=== PATIENT | female | born 1960 | race Caucasian/White ===

== ENCOUNTER 2016-06-13 07:05 | Emergency (ER) | payer OTHER ==
[2016-06-13] MEDS ORDERED: ALBUTEROL NEBULIZED 2.5 MG/3 ML INHALATION STA ×2 (07:41→09:26)
[2016-06-13] MEDS ORDERED: IPRATROPIUM-ALBUTEROL 3 ML NEB INHALATION STA (07:41)
[2016-06-13] MEDS ORDERED: predniSONE 20 MG TAB PO STA (07:41)
--- NOTE | 2016-06-13 07:46 | ED ---
SOB HPI - General Chief Complaint: Shortness of Breath Stated Complaint: hard time breathing Time Seen by Provider: 06/13/16 07:26 Source: patient Mode of arrival: ambulatory Limitations: no limitations - History of Present Illness Initial Comments: This patient is a 55-year-old woman who presents with complaint of which she feels a flareup of her COPD. The patient states that she was last her usual state about a month ago, when she had a flareup of COPD. She states she was treated with antibiotic and steroid, was improving. Patient states she was taking care of her grandchild has an upper respiratory infection, and she began to have worsening of her breathing over the past day to 2. She states she has some wheezing and a nonproductive cough. She has tried her home albuterol treatment without much relief. Patient denies fever or chills. She is not having any sputum. There is no chest pain. The patient is not having any leg pain or swelling. She denies prolonged at rest or travel. MD Complaint: shortness of breath, cough -: days(s) Consistency: constant Improves With: nothing Worsens With: nothing Known History Of: COPD Context: recent URI Associated Symptoms: denies other symptoms, cough Treatments Prior to Arrival: none - Related Data Home Medications Medication Instructions Recorded Confirmed ALPRAZolam [Xanax] 0.5 mg PO BID PRN 06/13/16 06/13/16 Atenolol/Chlorthalidone 1 tab PO BID 06/13/16 06/13/16 [Atenolol-Chlorthalidone 50-25] Hydrocodone/Acetaminophen [[place] 1 tab PO BID PRN 06/13/16 06/13/16 10-325] guaiFENesin [Mucinex] 1,200 mg PO BID PRN 06/13/16 06/13/16 Previous Rx's Medication Instructions Recorded Albuterol Inhaler [Ventolin Hfa 1 - 2 puff INHALATION Q6HR PRN #1 06/13/16 Inhaler] inhaler predniSONE 60 mg PO DAILY #30 tab 06/13/16 Allergies Allergy/AdvReac Type Severity Reaction Status Date / Time No Known Allergies Allergy Verified 06/13/16 07:55 Review of Systems ROS Statement: Those systems with pertinent positive or pertinent negative responses have been documented in the HPI. ROS Other: All systems not noted in ROS Statement are negative. Constitutional: Denies: fever, chills Respiratory: Reports: cough, dyspnea, wheezes. Denies: hemoptysis Cardiovascular: Denies: chest pain, palpitations, edema, syncope Gastrointestinal: Denies: abdominal pain, vomiting, diarrhea, melena, hematochezia Genitourinary: Denies: dysuria, hematuria Musculoskeletal: Denies: back pain Skin: Denies: rash Neurological: Denies: headache Past Medical History Additional Past Medical History / Comment(s): pneumonia, anxiety History of Any Multi-Drug Resistant Organisms: None Reported Past Surgical History: Section Past Psychological History: Anxiety Smoking Status: Current some day smoker Past Alcohol Use History: Occasional Past Drug Use History: None Reported General Exam Limitations: no limitations General appearance: alert, in no apparent distress Head exam: Present: atraumatic, normocephalic ENT exam: Present: normal oropharynx Respiratory exam: Present: wheezes. Absent: respiratory distress, rales, rhonchi, stridor, accessory muscle use, decreased breath sounds, prolonged expiratory Cardiovascular Exam: Present: regular rate, normal rhythm, normal heart sounds. Absent: systolic murmur, diastolic murmur, rubs, gallop GI/Abdominal exam: Present: soft. Absent: distended, tenderness, guarding, rebound Extremities exam: Present: normal inspection, normal capillary refill. Absent: pedal edema, calf tenderness Neurological exam: Present: alert Skin exam: Present: warm, dry, intact, normal color. Absent: rash Course Vital Signs 06/13/16 06/13/16 06/13/16 07:08 08:12 08:32 Temperature 97.5 F L Pulse Rate 66 72 78 Respiratory 20 Rate Blood Pressure 130/66 O2 Sat by Pulse 92 L Oximetry Medical Decision Making - Lab Data Result diagrams: 06/13/16 07:58 06/13/16 07:58 Lab Results 06/13/16 06/13/16 06/13/16 Range/Units 07:58 07:58 07:58 WBC 5.6 (3.8-10.6) k/uL RBC 4.24 (3.80-5.40) m/uL Hgb 13.9 (11.4-16.0) gm/dL Hct 40.8 (34.0-46.0) % MCV 96.1 (80.0-100.0) fL MCH 32.9 (25.0-35.0) pg MCHC 34.2 (31.0-37.0) g/dL RDW 13.6 (11.5-15.5) % Plt Count 211 (150-450) k/uL Neutrophils % 64 % Lymphocytes % 25 % Monocytes % 5 % Eosinophils % 3 % Basophils % 1 % Neutrophils # 3.6 (1.3-7.7) k/uL Lymphocytes # 1.4 (1.0-4.8) k/uL Monocytes # 0.3 (0-1.0) k/uL Eosinophils # 0.2 (0-0.7) k/uL Basophils # 0.1 (0-0.2) k/uL D-Dimer 0.37 (<0.60) mg/L FEU Sodium 137 (137-145) mmol/L Potassium 3.5 (3.5-5.1) mmol/L Chloride 98 (98-107) mmol/L Carbon Dioxide 29 (22-30) mmol/L Anion Gap 10 mmol/L BUN 15 (7-17) mg/dL Creatinine 0.57 (0.52-1.04) mg/dL Est GFR (MDRD) Af Amer >60 (>60 ml/min/1.73 sqM) Est GFR (MDRD) Non-Af >60 (>60 ml/min/1.73 sqM) Glucose 89 (74-99) mg/dL Calcium 8.8 (8.4-10.2) mg/dL - EKG Data -: EKG Interpreted by Md EKG shows normal: sinus rhythm, axis (Normal), intervals (Normal), QRS complexes (Normal), ST-T waves (Normal) Rate: bradycardia (Rate 57 bpm) Disposition Clinical Impression: Acute exacerbation of chronic obstructive airways disease Disposition: HOME SELF-CARE Condition: Fair Instructions: COPD (Chronic Obstructive Pulmonary Disease) (ED) Prescriptions: Albuterol Inhaler [Ventolin Hfa Inhaler] 1 - 2 puff INHALATION Q6HR PRN #1 inhaler PRN Reason: Wheezing predniSONE 60 mg PO DAILY #30 tab Referrals: Ursula Corona MD [Primary Care Provider] - 1-2 days
[2016-06-13 08:10] LABS: Basophils # (A) 0.1 k/uL (0-0.2); Basophils % (A) 1 %; CH 33.4; CHCM 34.9; Eosinophils # (A) 0.2 k/uL (0-0.7); Eosinophils % (A) 3 %; HCT 40.8 % (34.0-46.0); HDW 2.47; HGB 13.9 gm/dL (11.4-16.0); Luc # (Auto) 0.11; Luc % (Auto) 2; Lymphocytes # (A) 1.4 k/uL (1.0-4.8); Lymphocytes % (A) 25 %; MCH 32.9 pg (25.0-35.0); MCHC 34.2 g/dL (31.0-37.0); MCV 96.1 fL (80.0-100.0); Mean Platelet Volume 7.7; Monocytes # (A) 0.3 k/uL (0-1.0); Monocytes % (A) 5 %; Neutrophils # (A) 3.6 k/uL (1.3-7.7); Neutrophils % (A) 64 %; RBC 4.24 m/uL (3.80-5.40); RDW 13.6 % (11.5-15.5); WBC 5.6 k/uL (3.8-10.6); WBC (Perox) 5.72
[2016-06-13 08:18] LABS: Anion Gap 10 mmol/L; Blood Urea Nitrogen 15 mg/dL (7-17); Calcium 8.8 mg/dL (8.4-10.2); Carbon Dioxide 29 mmol/L (22-30); Chloride 98 mmol/L (98-107); Glucose 89 mg/dL (74-99); Non-African American GFR(MDRD) >60 (>60 ml/min/1.73 sqM); Potassium 3.5 mmol/L (3.5-5.1); Sodium 137 mmol/L (137-145)
--- NOTE | 2016-06-13 08:42 | XR ---
EXAMINATION TYPE: XR chest 2V DATE OF EXAM: 06/13/2016 8:34 AM COMPARISON: 02/15/2016 HISTORY: Shortness of breath FINDINGS: The lungs are clear and there is no pneumothorax, pleural effusion, or focal pneumonia. Hyperinflati on suggests COPD. IMPRESSION: 1. No acute process. Correlate for COPD.
[2016-06-13 09:47] VITALS: BP 114/55; RESP 18; TEMP 97.4
[2016-06-13 10:04] VITALS: PULSE 76
== END 2016-06-13 10:11 | disposition home or self-care (01) ==
LOC: EC 07:05
DX: J44.1 Chronic obstructive pulmonary disease with (acute) exacerbation (principal); F41.9 Anxiety disorder, unspecified; Z79.899 Other long term (current) drug therapy; F17.200 Nicotine dependence, unspecified, uncomplicated
CPT/HCPCS: 36415; 71020; 80048; 85025; 85379; 93005; 94640; 99285

== ENCOUNTER 2016-08-08 12:33 | Emergency (ER) | payer OTHER ==
--- NOTE | 2016-08-08 13:12 | ED ---
General Adult HPI - General Chief complaint: Extremity Injury, Lower Stated complaint: Left Foot Swelling Time Seen by Provider: 08/08/16 13:01 Source: patient, RN notes reviewed Mode of arrival: wheelchair Limitations: no limitations - History of Present Illness Initial comments: This is a 55-year-old female who presents with left lower extremity discomfort. Patient states she woke up with her left leg feeling uncomfortable. Patient describes it as a tightness to the posterior left calf and patient has also noticed some swelling to the lateral aspect of the left ankle. Patient denies any known injury or fall. Patient states she has been ambulating. Patient denies any numbness/weakness or tingling. Patient denies any history of blood clots. Patient admits to tobacco use but denies any drug or excessive alcohol use. Patient denies any recent fever, chills, shortness breath, chest pain, abdominal pain, nausea/vomiting/diarrhea, back pain, hematuria, headache, or visual changes, or any other complaints. - Related Data Home Medications Medication Instructions Recorded Confirmed ALPRAZolam [Xanax] 0.5 mg PO BID PRN 06/13/16 08/08/16 Atenolol/Chlorthalidone 1 tab PO BID 06/13/16 08/08/16 [Atenolol-Chlorthalidone 50-25] Hydrocodone/Acetaminophen [[place] 1 tab PO BID PRN 06/13/16 08/08/16 10-325] guaiFENesin [Mucinex] 1,200 mg PO BID PRN 06/13/16 08/08/16 Previous Rx's Medication Instructions Recorded Albuterol Inhaler [Ventolin Hfa 1 - 2 puff INHALATION Q6HR PRN #1 06/13/16 Inhaler] inhaler predniSONE 60 mg PO DAILY #30 tab 06/13/16 Allergies Allergy/AdvReac Type Severity Reaction Status Date / Time No Known Allergies Allergy Verified 06/13/16 07:55 Review of Systems ROS Statement: Those systems with pertinent positive or pertinent negative responses have been documented in the HPI. ROS Other: All systems not noted in ROS Statement are negative. Past Medical History Additional Past Medical History / Comment(s): pneumonia, anxiety History of Any Multi-Drug Resistant Organisms: None Reported Past Surgical History: Section Past Psychological History: Anxiety Smoking Status: Current some day smoker Past Alcohol Use History: Occasional Past Drug Use History: None Reported General Exam - General Exam Comments Initial Comments: General: The patient is awake and alert, in no distress, and does not appear acutely ill. Neck: The neck is supple, there is no tenderness or JVD. Cardiovascular: There is a regular rate and rhythm. No murmur, rub or gallop is appreciated. Respiratory: Lungs are clear to auscultation, respirations are non-labored, breath sounds are equal. No wheezes, stridor, rales, or rhonchi. Musculoskeletal: There is tenderness to palpation over the lateral aspect of the left ankle with some mild swelling here as well. No ecchymosis or erythema. There is no tenderness of the left foot. There is some mild discomfort to palpation over the proximal left tib-fib. No unilateral leg swelling or erythema. Patient has full range of motion, strength 5/5 and Sensation intact. Posterior tibial pulses 2+ bilaterally and capillary refill is normal at less than 2 seconds. Neurological: A&O x 3. CN II-XII intact, There are no obvious motor or sensory deficits. Coordination appears grossly intact. Speech is normal. Skin: Skin is warm and dry and no rashes or lesions are noted. Psychiatric: Patient appears slightly anxious. Normal mood and affect. Limitations: no limitations Course Vital Signs 08/08/16 08/08/16 12:43 15:20 Temperature 99.4 F 98.1 F Pulse Rate 79 80 Respiratory 17 18 Rate Blood Pressure 156/82 148/83 O2 Sat by Pulse 96 99 Oximetry Medical Decision Making - Medical Decision Making This is a 55-year-old female presents with left leg discomfort that she woke up with this morning. On physical exam there is tenderness to palpation over the lateral aspect of the left ankle with some mild swelling here as well. No ecchymosis or erythema. There is no tenderness of the left foot. There is some mild discomfort to palpation over the proximal calf. No unilateral leg swelling or erythema. Patient has full range of motion, strength 5/5 and Sensation intact. Posterior tibial pulses 2+ bilaterally and capillary refill is normal at less than 2 seconds. An x-ray of the left tib-fib and an x-ray of the left ankle were done and reviewed showing: There is no acute fracture or dislocation seen in the left ankle or leg. Nonspecific cortical thickening favors benign endosteal sclerosis or bone island variant. Advised radiographic follow-up in 3-6 months time to confirm nonaggressive ideology. If pain is localized to this level and further investigation with nonemergent contrast enhanced MRI may be warranted. Report read by Dr. Bonner. I discussed the results with patient. Patient has no unilateral leg swelling or erythema, patient has no pitting edema. Patient has 2+ dorsalis pedis and posterior tibial pulses with capillary refill less than 2 seconds. Patient's point of maximal tenderness correlates with the cortical thickening found on x-ray. Patient is able to ambulate in the EC but this is painful. Patient has no history of blood clots. I discussed return parameters. I discussed use of crutches if ambulation is too painful. I discussed the importance of following up with orthopedics for repeat imaging. Discussed that patient should follow up with PCP in one to 2 days or return to the EC for any worsening symptoms or for any further concerns. Patient was receptive to this plan and patient will be discharged home. I discussed this case with attending physician Dr. Akhtar who agrees with plan as stated above. Disposition Clinical Impression: Bone thickening Disposition: HOME SELF-CARE Condition: Good Instructions: Leg Pain (ED) Additional Instructions: Please rest, ice, elevate and use Tylenol or Motrin in her normal at home pain medications for pain. Please use ice packs and heating pads to the area. Please be sure to follow up with orthopedics in the next 1-2 days for further evaluation and for repeat imaging. Please follow-up with family doctor in the next 2 days of symptoms have not improved. Please return to emergency room if the symptoms increase or worsen or for any other concerns. Referrals: Ursula Corona MD [Primary Care Provider] - 1-2 days Martha Gonzalez DO [Doctor of Osteopathic Medicine] - 1-2 days Time of Disposition: 15:12
--- NOTE | 2016-08-08 14:40 | XR ---
EXAMINATION TYPE: XR tibia fibula LT, XR ankle complete LT DATE OF EXAM: 08/08/2016 1:40 PM CLINICAL HISTORY: Left ankle and lower leg pain. Inability to bear weight. TECHNIQUE: Two views of the left leg are obtained. 3 views of left ankle are acquired. COMPARISON: None. FINDINGS: There is no acute fracture or dislocation seen in the left tibia or fibula. A fabella is n oted. Visualized left knee joint is felt within normal limits. There is nonspecific cortical thickeni ng involving the posterior proximal tibial diaphysis. The overlying soft tissue appears unremarkable. Images of the ankle show no acute fracture or dislocation. Ankle mortise symmetry is preserved. Some ossification posterior to talus could reflect unfused apophysis. Tiny fragment posterior to the media l malleolus is noted. IMPRESSION: There is no acute fracture or dislocation seen in the left ankle or leg. Nonspecific cor tical thickening favors benign endosteal sclerosis or bone island variant. Advise radiographic follow -up in 3-6 months time to confirm nonaggressive etiology. If pain is localized to this level and furt her investigation with nonemergent contrast-enhanced MRI may be warranted.
[2016-08-08 15:20] VITALS: BP 148/83; PULSE 80; RESP 18; TEMP 98.1
== END 2016-08-08 15:20 | disposition home or self-care (01) ==
LOC: EC 12:33
DX: M89.362 Hypertrophy of bone, left tibia (principal); F17.200 Nicotine dependence, unspecified, uncomplicated; Z79.899 Other long term (current) drug therapy
CPT/HCPCS: 99283

== ENCOUNTER → 2016-08-15 | Outpatient (CLI) | payer OTHER ==
--- NOTE | 2016-08-17 12:23 | MR ---
EXAMINATION TYPE: MR tib fib LT wo/w con DATE OF EXAM: 08/15/2016 7:07 PM COMPARISON: X-ray 08/08/2016 HISTORY: Patient has tibial bone lesion/disorder CONTRAST: Standard multiplanar, multisequence MRI departmental protocol utilizing 15 mL intravenous MultiHance gadolinium contrast. FINDINGS: There is marked cortical thickening involving the posterior proximal diaphysis of the tibia . Differential diagnosis would include healed fibroxanthoma, osteoid osteoma, stress fracture, intraoss eous fibrous dysplasia. However, There is no central nidus. There is no periosteal reaction. There is no soft tissue component. There is a narrow zone of transition. There is no adjacent marrow edema. There is no adjacent soft tissue e norma. No enhancement. Visualized intramuscular and tendinous structures demonstrate normal signal pattern. There is no abno rmal soft tissue mass signal or fluid collection. IMPRESSION: Posterior cortical thickening proximal diaphysis tibia. Constellation of findings are most typical of a healed fibrous cortical defect or fibroxanthoma. If the patient is point tender that a nuclear med icine bone scan could be obtained to determine activity, however, no surrounding edema within the mar row or soft tissues is noted.
== END | disposition home or self-care (01) ==
LOC: RADMRIMAIN 18:03
PROVIDERS: ATTEND Internal Medicine
DX: M89.8X6 Other specified disorders of bone, lower leg (principal)
CPT/HCPCS: 73720; A9577

== ENCOUNTER 2016-10-15 08:43 | Inpatient (IN) | payer OTHER ==
[2016-10-15] MEDS ORDERED: IBUPROFEN 600 MG TAB PO STA (09:02)
[2016-10-15] MEDS ORDERED: SODIUM CHLORIDE 0.9% 1,000 ML IV STA (09:02)
[2016-10-15] MEDS ORDERED: ONDANSETRON 4 MG/2 ML VIAL IVP STA (09:16)
[2016-10-15] MEDS ORDERED: IPRATROPIUM-ALBUTEROL 3 ML NEB INHALATION STA (09:17)
--- NOTE | 2016-10-15 09:19 | ED ---
Fever HPI <Adonis Kat - Last Filed: 10/15/16 11:53> - General Source: patient, RN notes reviewed Mode of arrival: ambulatory Limitations: no limitations <Miley Chong - Last Filed: 10/15/16 12:18> - General Chief Complaint: Fever Stated Complaint: vomiting, sob Time Seen by Provider: 10/15/16 09:02 - History of Present Illness Initial Comments: Patient is a 55-year-old female presents emergency room for evaluation of fever. Patient states fever began on Thursday. Patient states when taking Tylenol and ibuprofen with little relief of symptoms. Patient states that she has a dry cough. Patient states her chest feels tight. Patient states that she feels short of breath. Patient does admit that she smokes about a pack per day. Patient denies any cardiac history. Patient does states she has history of pneumonia. Patient also states that she's been nauseous with vomiting and slight diarrhea. Patient denies recent travel outside the country. Patient denies taking recent antibiotics. Patient denies sick contacts or any new foods. Patient denies pain or burning during urination, trouble urinating or blood in urine. Patient denies headache. Patient denies throat pain. Patient denies ear pain. Patient states she took a [place] around 6 AM this morning. ( Miley Chong) - Related Data Home Medications Medication Instructions Recorded Confirmed ALPRAZolam [Xanax] 0.5 mg PO BID PRN 06/13/16 10/15/16 Atenolol/Chlorthalidone 1 tab PO BID 06/13/16 10/15/16 [Atenolol-Chlorthalidone 50-25] Hydrocodone/Acetaminophen [[place] 1 tab PO BID PRN 06/13/16 10/15/16 10-325] Albuterol Inhaler [Ventolin Hfa 1 - 2 puff INHALATION RT-Q6H PRN 10/15/16 Inhaler] Allergies Allergy/AdvReac Type Severity Reaction Status Date / Time No Known Allergies Allergy Verified 10/15/16 09:07 Review of Systems ROS Other: All systems not noted in ROS Statement are negative. <Adonis Kat - Last Filed: 10/15/16 11:53> ROS Other: All systems not noted in ROS Statement are negative. <Miley Chong - Last Filed: 10/15/16 12:18> ROS Statement: Those systems with pertinent positive or pertinent negative responses have been documented in the HPI. Past Medical History Additional Past Medical History / Comment(s): pneumonia, anxiety History of Any Multi-Drug Resistant Organisms: None Reported Past Surgical History: Section Past Psychological History: Anxiety Smoking Status: Current every day smoker Past Alcohol Use History: Occasional Past Drug Use History: None Reported <Miley Chong - Last Filed: 10/15/16 12:18> General Exam <Adonis Kat - Last Filed: 10/15/16 11:53> Limitations: no limitations General appearance: alert, in no apparent distress Head exam: Present: atraumatic, normocephalic, normal inspection Eye exam: Present: normal appearance, PERRL, EOMI Pupils: Present: normal accommodation ENT exam: Present: normal exam, normal oropharynx, mucous membranes moist, TM's normal bilaterally, normal external ear exam Neck exam: Present: normal inspection, full ROM. Absent: tenderness, lymphadenopathy Respiratory exam: Present: wheezes. Absent: respiratory distress Cardiovascular Exam: Present: regular rate, normal rhythm, normal heart sounds GI/Abdominal exam: Present: soft, normal bowel sounds. Absent: distended, tenderness, guarding, rebound, rigid Extremities exam: Present: normal inspection Back exam: Present: normal inspection Neurological exam: Present: alert, oriented X3, CN II-XII intact, normal gait Psychiatric exam: Present: normal affect, normal mood Skin exam: Present: warm, dry, intact, normal color. Absent: rash <Miley Chong - Last Filed: 10/15/16 12:18> - General Exam Comments Initial Comments: Laying in exam room, no acute distress. (Miley Chong) Course <Adoins Kat - Last Filed: 10/15/16 11:53> <Miley Chong - Last Filed: 10/15/16 12:18> Vital Signs 10/15/16 10/15/16 10/15/16 08:53 10:05 10:49 Temperature 102.4 F H 103 F H 99.8 F H Pulse Rate 87 81 83 Respiratory 20 18 16 Rate Blood Pressure 144/61 128/77 119/61 O2 Sat by Pulse 90 L 93 L 94 L Oximetry 10/15/16 10/15/16 10/15/16 10:53 11:00 11:31 Temperature 98.7 F Pulse Rate 83 92 86 Respiratory 16 Rate Blood Pressure 114/58 O2 Sat by Pulse 94 L Oximetry - Reevaluation(s) Reevaluation #1: 10/15/16 11:54 I did personally do a [id number] evaluation the patient did discuss findings with her. She does demonstrate right lower lobe pneumonia in addition to infection she has had burning with urination and a followed her. She has generalized body aches. Additionally to the findings she has hypokalemia and hypomagnesemia. Patient will be admitted for IV antibiotics and electrolyte replenishment. Examination of the patient does demonstrate a right lower lobe rhonchi and evaluation at the soft nontender extremities bilaterally present and symmetric. I did discuss case with Dr. Sorto. (Adonis Kat) Medical Decision Making - Lab Data Result diagrams: 10/15/16 09:30 10/15/16 09:30 <Adonis Kat - Last Filed: 10/15/16 11:53> - Lab Data Result diagrams: 10/15/16 09:30 10/15/16 09:30 <Miley Chong - Last Filed: 10/15/16 12:18> - Lab Data Lab Results 10/15/16 10/15/16 10/15/16 Range/Units 09:30 09:30 09:30 WBC 6.7 (3.8-10.6) k/uL RBC 4.34 (3.80-5.40) m/uL Hgb 14.7 (11.4-16.0) gm/dL Hct 43.3 (34.0-46.0) % MCV 99.8 (80.0-100.0) fL MCH 33.8 (25.0-35.0) pg MCHC 33.9 (31.0-37.0) g/dL RDW 14.4 (11.5-15.5) % Plt Count 225 (150-450) k/uL Neutrophils % 83 % Lymphocytes % 12 % Monocytes % 3 % Eosinophils % 1 % Basophils % 0 % Neutrophils # 5.6 (1.3-7.7) k/uL Lymphocytes # 0.8 L (1.0-4.8) k/uL Monocytes # 0.2 (0-1.0) k/uL Eosinophils # 0.1 (0-0.7) k/uL Basophils # 0.0 (0-0.2) k/uL Macrocytosis Slight PT (9.0-12.0) sec INR (<1.1) APTT (22.0-30.0) sec Sodium 134 L (137-145) mmol/L Potassium 2.9 L* (3.5-5.1) mmol/L Chloride 94 L (98-107) mmol/L Carbon Dioxide 32 H (22-30) mmol/L Anion Gap 8 mmol/L BUN 13 (7-17) mg/dL Creatinine 0.62 (0.52-1.04) mg/dL Est GFR (MDRD) Af Amer >60 (>60 ml/min/1.73 sqM) Est GFR (MDRD) Non-Af >60 (>60 ml/min/1.73 sqM) Glucose 107 H (74-99) mg/dL Plasma Lactic Acid [place] 1.0 (0.7-2.0) mmol/L Calcium 8.8 (8.4-10.2) mg/dL Magnesium 1.5 L (1.6-2.3) mg/dL Total Bilirubin 0.5 (0.2-1.3) mg/dL AST 37 H (14-36) U/L ALT 39 (9-52) U/L Alkaline Phosphatase 75 (38-126) U/L Total Creatine Kinase (30-135) U/L CK-MB (CK-2) (0.0-2.4) ng/mL CK-MB (CK-2) Rel Index Troponin I (0.000-0.034) ng/mL Total Protein 7.2 (6.3-8.2) g/dL Albumin 4.2 (3.5-5.0) g/dL Urine Color Urine Appearance (Clear) Urine pH (5.0-8.0) Ur Specific [place] (1.001-1.035) Urine Protein (Negative) Urine Glucose (UA) (Negative) Urine Ketones (Negative) Urine Blood (Negative) Urine Nitrite (Negative) Urine Bilirubin (Negative) Urine Urobilinogen (<2.0) mg/dL Ur Leukocyte Esterase (Negative) Urine RBC (0-5) /hpf Urine WBC (0-5) /hpf Urine WBC Clumps (None) /hpf Urine Mucus (None) /hpf 10/15/16 10/15/16 10/15/16 Range/Units 09:30 09:30 09:30 WBC (3.8-10.6) k/uL RBC (3.80-5.40) m/uL Hgb (11.4-16.0) gm/dL Hct (34.0-46.0) % MCV (80.0-100.0) fL MCH (25.0-35.0) pg MCHC (31.0-37.0) g/dL RDW (11.5-15.5) % Plt Count (150-450) k/uL Neutrophils % % Lymphocytes % % Monocytes % % Eosinophils % % Basophils % % Neutrophils # (1.3-7.7) k/uL Lymphocytes # (1.0-4.8) k/uL Monocytes # (0-1.0) k/uL Eosinophils # (0-0.7) k/uL Basophils # (0-0.2) k/uL Macrocytosis PT 10.4 (9.0-12.0) sec INR 1.0 (<1.1) APTT 27.6 (22.0-30.0) sec Sodium (137-145) mmol/L Potassium (3.5-5.1) mmol/L Chloride (98-107) mmol/L Carbon Dioxide (22-30) mmol/L Anion Gap mmol/L BUN (7-17) mg/dL Creatinine (0.52-1.04) mg/dL Est GFR (MDRD) Af Amer (>60 ml/min/1.73 sqM) Est GFR (MDRD) Non-Af (>60 ml/min/1.73 sqM) Glucose (74-99) mg/dL Plasma Lactic Acid [place] (0.7-2.0) mmol/L Calcium (8.4-10.2) mg/dL Magnesium (1.6-2.3) mg/dL Total Bilirubin (0.2-1.3) mg/dL AST (14-36) U/L ALT (9-52) U/L Alkaline Phosphatase (38-126) U/L Total Creatine Kinase 120 (30-135) U/L CK-MB (CK-2) 0.6 (0.0-2.4) ng/mL CK-MB (CK-2) Rel Index 0.5 Troponin I <0.012 (0.000-0.034) ng/mL Total Protein (6.3-8.2) g/dL Albumin (3.5-5.0) g/dL Urine Color Yellow Urine Appearance Cloudy H (Clear) Urine pH 5.5 (5.0-8.0) Ur Specific [place] 1.012 (1.001-1.035) Urine Protein 2+ H (Negative) Urine Glucose (UA) Negative (Negative) Urine Ketones Negative (Negative) Urine Blood Moderate H (Negative) Urine Nitrite Negative (Negative) Urine Bilirubin Negative (Negative) Urine Urobilinogen <2.0 (<2.0) mg/dL Ur Leukocyte Esterase Large H (Negative) Urine RBC 25 H (0-5) /hpf Urine WBC >182 H (0-5) /hpf Urine WBC Clumps Occasional H (None) /hpf Urine Mucus Rare H (None) /hpf 10/15/16 12:18 Normal sinus rhythm, ventricular rate 85 bpm, MA interval 124 ms, QRS duration 86 ms, QT/QTC 364/433 ms (Miley Chong) Disposition <Adonis Kat - Last Filed: 10/15/16 11:53> Decision Date: 10/15/16 <Miley Chong - Last Filed: 10/15/16 12:18> Clinical Impression: Urinary tract infection, Pneumonia, Hypokalemia, Hypomagnesemia Disposition: ADMITTED IP TO THIS [facility] Condition: Stable
[2016-10-15 09:48] LABS: Basophils % (A) 0 %; CH 34.8; Eosinophils # (A) 0.1 k/uL (0-0.7); Eosinophils % (A) 1 %; HCT 43.3 % (34.0-46.0); HDW 2.45; HGB 14.7 gm/dL (11.4-16.0); Luc # (Auto) 0.07; Luc % (Auto) 1; Lymphocytes # (A) 0.8 k/uL (1.0-4.8); Lymphocytes % (A) 12 %; MCH 33.8 pg (25.0-35.0); MCHC 33.9 g/dL (31.0-37.0); MCV 99.8 fL (80.0-100.0); Macrocytosis Slight; Mean Platelet Volume 7.7; Monocytes # (A) 0.2 k/uL (0-1.0); Monocytes % (A) 3 %; Neutrophils # (A) 5.6 k/uL (1.3-7.7); Neutrophils % (A) 83 %; RBC 4.34 m/uL (3.80-5.40); RDW 14.4 % (11.5-15.5); WBC 6.7 k/uL (3.8-10.6); WBC (Perox) 6.45
[2016-10-15 10:03] LABS: ALT 39 U/L (9-52); AST 37 U/L (14-36); Alkaline Phosphatase 75 U/L (38-126); Anion Gap 8 mmol/L; Blood Urea Nitrogen 13 mg/dL (7-17); Calcium 8.8 mg/dL (8.4-10.2); Carbon Dioxide 32 mmol/L (22-30); Chloride 94 mmol/L (98-107); Glucose 107 mg/dL (74-99); Magnesium 1.5 mg/dL (1.6-2.3); Non-African American GFR(MDRD) >60 (>60 ml/min/1.73 sqM); Sodium 134 mmol/L (137-145); Total Bilirubin 0.5 mg/dL (0.2-1.3); Total Protein 7.2 g/dL (6.3-8.2)
[2016-10-15 10:04] LABS: Partial Thromboplastin Time 27.6 sec (22.0-30.0); Prothrombin Time 10.4 sec (9.0-12.0)
[2016-10-15 10:05] LABS: Appearance,Urine Cloudy (Clear); Bilirubin,Urine Negative (Negative); Glucose,Urine (UA) Negative (Negative); Ketones,Urine Negative (Negative); Leukocyte Esterase,Urine Large (Negative); Mucus,Urine Rare /hpf; Nitrite,Urine Negative (Negative); PH, Urine 5.5 (5.0-8.0); Particle Count 9450; Protein,Urine 2+ (Negative); RBC,Urine 25 /hpf (0-5); Specific Gravity,Urine 1.012 (1.001-1.035); UA Billing (MACRO vs. MICRO) MICRO; Urobilinogen,Urine <2.0 mg/dL (<2.0); WBC,Urine >182 /hpf (0-5)
[2016-10-15 10:07] LABS: Potassium 2.9 mmol/L (3.5-5.1)
[2016-10-15 10:17] LABS: Creatine Kinase 120 U/L (30-135)
[2016-10-15 10:29] LABS: Creatine Kinase MB 0.6 ng/mL (0.0-2.4); Troponin I <0.012 ng/mL (0.000-0.034)
--- NOTE | 2016-10-15 10:30 | XR ---
EXAMINATION TYPE: XR chest 2V DATE OF EXAM: 10/15/2016 COMPARISON: 06/13/2016 INDICATION: Cough tightness TECHNIQUE: Frontal and lateral views of the chest are obtained. FINDINGS: The heart size is normal. The pulmonary vasculature is normal. There is a right lower lobe infiltrate. Correlate for pneumonia. Atelectasis could be considered.. IMPRESSION: 1. Right lower lobe pneumonia. Correlate clinically
[2016-10-15] MEDS ORDERED: POTASSIUM CHLORIDE ER 20 MEQ TAB.ER PO STA ×2 (10:32→13:20)
[2016-10-15] MEDS ORDERED: MAGNESIUM SULFATE-D5W PMX 1 GM in DEXTROSE/WATER 1 100ML.BAG IVPB ONE (11:05)
[2016-10-15] MEDS ORDERED: LEVOFLOXACIN 750MG-D5W PMX 750 MG in DEXTROSE/WATER 1 150ML.BAG IVPB STA (11:17)
[2016-10-15] MEDS ORDERED: NALOXONE 0.4 MG/ML 1 ML VIAL IV PRN (12:01)
[2016-10-15] MEDS ORDERED: IBUPROFEN 400 MG TAB PO PRN (12:01)
[2016-10-15] MEDS ORDERED: ACETAMINOPHEN TAB 325 MG TAB PO PRN (12:01)
[2016-10-15] MEDS ORDERED: ONDANSETRON 4 MG/2 ML VIAL IVP PRN ×2 (12:01→14:38)
[2016-10-15] MEDS: SODIUM CHLORIDE 0.9% 1,000 ML IV SCH (14:01)
[2016-10-15 14:11] VITALS: BMI 25.8
[2016-10-15] MEDS: MORPHINE SULFATE 4 MG/ML SYRINGE IV PRN (14:45)
[2016-10-15] MEDS: predniSONE 20 MG TAB PO SCH (14:46)
[2016-10-15] MEDS: IPRATROPIUM-ALBUTEROL 3 ML NEB INHALATION SCH ×2 (15:00→19:41)
[2016-10-15] MEDS: AZITHROMYCIN 500 MG TAB PO SCH (17:14)
[2016-10-15] MEDS: PANTOPRAZOLE 40 MG TABLET PO SCH (17:14)
--- NOTE | 2016-10-15 18:03 | HP ---
DATE OF ADMISSION: The patient is a 55-year-old who came in with complaints of fever, 3 days in duration, cough, unable to bring up anything. Patient was also short of breath. Patient does smoke 1 pack of cigarettes per day. Denied any alcohol abuse or any drug abuse. Patient denied any dysuria or urinary frequency. Patient was also complaining of nausea, vomiting. Denied any abdominal pain. Denied any diarrhea. Patient was found to have right middle lobe pneumonia on the chest x-ray. Patient is admitted ( ) I am changing it to ceftriaxone and azithromycin. REVIEW OF SYSTEMS: GENERAL: As described in HPI. CONSTITUTIONAL: No fever, no malaise, no fatigue. HEENT: No recent visual problems or hearing problems. Denied any sore throat. CARDIOVASCULAR: No chest pain, orthopnea, PND, no palpitations, no syncope. PULMONARY: As described in HPI. GASTROINTESTINAL: No diarrhea, no nausea, no vomiting, no abdominal pain. Normoactive bowel sounds. NEUROLOGICAL: No headaches, no weakness, no numbness. HEMATOLOGICAL: Denies any bleeding or petechiae. GENITOURINARY: Denies any burning micturition, frequency, or urgency. MUSCULOSKELETAL/RHEUMATOLOGICAL: Denies any joint pain, swelling, or any muscle pain. ENDOCRINE: Denies any polyuria or polydipsia. The rest of the 14 point review of systems is negative. Home medications include: 1. Atenolol. 2. Chlorthalidone. Chlorthalidone will be held because of hyponatremia and hypokalemia. 3. Xanax. 4. Acetaminophen/hydrocodone. 5. Albuterol. ALLERGIES: NO KNOWN DRUG ALLERGIES. PAST MEDICAL HISTORY: 1. Pneumonia in the past. 2. Hypertension. 3. Anxiety disorder. SOCIAL HISTORY: Smoking as mentioned above. Denied any alcohol abuse or any drug abuse. FAMILY HISTORY: Significant for mesothelioma in father, who at age 73. PHYSICAL EXAMINATION: VITAL SIGNS: Temperature 99.3, pulse of 86, respiratory rate of 20, blood pressure 114/58. Saturating at 94% on 2 L of oxygen by nasal cannula. GENERAL: The patient is alert and oriented x3, not in any acute distress. Well developed, well nourished. HEENT: Pupils are round and equally reacting to light. EOMI. No scleral icterus. No conjunctival pallor. Normocephalic, atraumatic. No pharyngeal erythema. No thyromegaly. CARDIOVASCULAR: S1 and S2 present. No murmurs, rubs, or gallops. PULMONARY: Decreased air entry into bilateral lung joe. Minimal expiratory wheezing was appreciated. I did not hear any clear-cut bronchophony or egophony on exam. ABDOMEN: Soft, nontender, nondistended, normoactive bowel sounds. No palpable organomegaly. MUSCULOSKELETAL: No joint swelling or deformity. EXTREMITIES: No cyanosis, clubbing, or pedal edema. NEUROLOGICAL: Gross neurological examination did not reveal any focal deficits. SKIN: No rashes. LABORATORY DATA: CBC, CMP abnormal for low sodium of 134, potassium of 3.9, magnesium of 1.5. Urine is cloudy; large leukocyte esterase, WBC greater than 182, RBCs 25, occasional WBC clumps. Chest x-ray as mentioned above. ASSESSMENT AND PLAN: 1. Sepsis secondary to most probably pneumonia, right middle lobe. Patient will be started on Rocephin and azithromycin. Will continue to monitor. Blood cultures and sputum cultures were obtained. 2. Acute hypercapnic and hypoxic respiratory failure secondary to chronic obstructive pulmonary disease exacerbation and pneumonia, respectively. Patient will started on systemic steroids, inhalational treatments. Nicotine cessation counseling was provided. 3. Hypertension. Atenolol can be continued but chlorthalidone needs to be held. 4. Hyponatremia, probably hypovolemic as well as from chlorthalidone. Chlorthalidone will be discontinued. 5. Hypomagnesemia. Potassium will be supplemented. 6. Asymptomatic bacteriuria, for which patient will not need any antibiotics. Patient is on Rocephin, which should be good even if she has UTI. 7. Nicotine cessation counseling was provided.
[2016-10-15] MEDS ORDERED: Potassium Replacement Protocol 1 EACH MISC MISCELLANE PRN (20:02)
[2016-10-15] MEDS: HYDROcodone/APAP 10-325MG 1 EACH TAB PO PRN (20:42)
[2016-10-15] MEDS: POTASSIUM CHLORIDE ER 20 MEQ TAB.ER PO SCH (22:11)
[2016-10-15] MEDS: POTASSIUM CHLORIDE 10 MEQ, LIDOCAINE 2% INJ 10 MG in SODIUM CHLORIDE 0.9% 100 ML IV SCH (22:11)
[2016-10-16] MEDS: POTASSIUM CHLORIDE 10 MEQ, LIDOCAINE 2% INJ 10 MG in SODIUM CHLORIDE 0.9% 100 ML IV SCH (00:56)
[2016-10-16] MEDS: POTASSIUM CHLORIDE ER 20 MEQ TAB.ER PO SCH (00:56)
[2016-10-16] MEDS: SODIUM CHLORIDE 0.9% 1,000 ML IV SCH ×3 (01:00→18:21)
[2016-10-16] MEDS: BENZOCAINE/MENTHOL LOZENG 1 EACH LOZENGE MUCOUS MEM PRN (05:24)
[2016-10-16] MEDS: predniSONE 20 MG TAB PO SCH (08:33)
[2016-10-16] MEDS: HYDROcodone/APAP 10-325MG 1 EACH TAB PO PRN ×2 (08:33→18:20)
[2016-10-16] MEDS: AZITHROMYCIN 500 MG TAB PO SCH (08:34)
[2016-10-16] MEDS: PANTOPRAZOLE 40 MG TABLET PO SCH (08:34)
[2016-10-16] MEDS: IPRATROPIUM-ALBUTEROL 3 ML NEB INHALATION SCH ×4 (08:55→20:22)
[2016-10-16] MEDS ORDERED: LEVOFLOXACIN 750MG-D5W PMX 750 MG in DEXTROSE/WATER 1 150ML.BAG IVPB SCH (09:00)
--- NOTE | 2016-10-16 09:06 | CDI ---
In responding to this query, please exercise your independent professional judgment. The [facility] Coding Staff and Clinical Documentation Specialists appreciate your assistance in clarifying documentation, maintaining compliance with coding guidelines, accurately documenting patients condition and capturing severity of illness. The fact that a question is asked does not imply that any particular answer is desired or expected. Communication forms are a method of clarifying documentation and are not made part of the Legal Health Record. Thank you in advance for your clarification. Last Revision, August 2016 Cynthia Cohen [address] [facility] [place] [address] Documentation Clarification Form Date: 10/16/2016 8:54:00 AM From: Sachi Marie RN, CDS Admit Date: 10/15/2016 11:59:00 AM Patient Name: Rossy Edge Visit Number: [id number] Dr. Petey Sorto, 55 year old female presented to ED with c/o fever, dry cough chest feeling tight and nausea/vomiting/slight diarrhea. Patient was short of breath, Expiratory wheezes per Resp therapy. In reference to your documentation of Sepsis in the H&P would you please provide the clinical indicators/treatment to support your documentation. History/Risk Factors: 55 year old h/o Anxiety, HTN, smoker, pneumonia in past Clinical Indicators: WBC 6.7, K 2.9, NA 134, MG 1.5 WBC/Left Shift 6.7/no shift Lactic acid: 1.0 Blood cultures: Pending Vitals signs on admission: 102.4 87 20 144/61 9o% Other Clinical Indicators: Treatment: IV Levaquin in ED, IV Zithromax, IV Rocephin, Duoneb, ID Consult: no Antibiotics: yes IV Bolus: yes in ED In your professional opinion, please clarify if these findings signify one of the following conditions, whether the condition is POA, and cause, if known: Sepsis, ruled out SIRS, without underlying infectious process Sepsis Severe Sepsis Septic Shock Unable to determine Other, please specify Present on Admission: Yes No * Identify the (suspected) organism SIRS Criteria: 2 or more of the following may indicate SIRS Temperature < 96.8F(36C) or > 101.0F (38C) Heart Rate > 90 bpm Respiratory Rate > 20 breaths/min or PaCO2 < 32 mmHg White Blood Cell Count > 12,000 or < 4,000 cells/mm3 or > 10% bands Lactate >2.0 mmol/L (>4.0 is equivalent to septic shock) Please document in your progress notes and discharge summary in order to capture severity of illness and risk of mortality. Include clinical findings that support your diagnosis. FYI: Press F11 to launch patient chart. Place X here if this finding has no clinical significance, is not applicable or if you are not able to provide any additional documentation. MTDD
--- NOTE | 2016-10-16 09:21 | CDI ---
In responding to this query, please exercise your independent professional judgment. The [facility] Coding Staff and Clinical Documentation Specialists appreciate your assistance in clarifying documentation, maintaining compliance with coding guidelines, accurately documenting patients condition and capturing severity of illness. The fact that a question is asked does not imply that any particular answer is desired or expected. Communication forms are a method of clarifying documentation and are not made part of the Legal Health Record. Thank you in advance for your clarification. Last Revision, July 2015 Cynthia Cohen [address] [facility] [place] [address] Documentation Clarification Form Date: 10/16/2016 9:07:00 AM From: Sachi Marie RN, CDS Admit Date: 10/15/2016 11:59:00 AM Patient Name: Rossy Edge Visit Number: [id number] Dr. Petey Sorto, 55 year old female presented to ED with c/o fever, dry cough chest feeling tight and nausea/vomiting/slight diarrhea. Patient was short of breath, Expiratory wheezes per Resp therapy. In reference to your documentation of Acute Hypercapnic and Hypoxic Respiratory Failure please provide the clinical indicators/treatment to support your documentation. History/Risk Factors: 55 year old h/o Anxiety, HTN, smoker, pneumonia in past Tobacco use: current smoker 1 pack per day Home oxygen: No Clinical Indicators: Resp: 16-20 patient reports feeling short of breath, I&E wheezes then diminished lung sounds Vital signs/Pulse oximetry: 102.4 87 20 144/61 90ra then 93-2L Lung/Breathing assessment: Expiratory and Inspiratory Wheezes ABG/CBG: pH -- pCO2 -- pHCO3 -- Lactate: 1.0 Treatment: PO Prednisone, O2/2L to maintain Sats >/= 94% Breathing tx: Duoneb Continuous Pulse ox Vent/Bipap: No O2: 2L/NC-room air In your professional opinion, can you please clarify if these findings signify one of the following conditions? Acuity: o Acute o Chronic o Acute on Chronic Respiratory Status: o Respiratory failure o Respiratory failure with hypercapnia o Respiratory failure with hypoxia o Acute Respiratory Distress o Other Diagnosis, please specify o Unable to determine Please document in your progress notes and discharge summary in order to capture severity of illness and risk of mortality. Include clinical findings that support your diagnosis. FYI: Press F11 to launch patient chart. Place X here if this finding has no clinical significance, is not applicable or if you are not able to provide any additional documentation. MTDD
[2016-10-16 09:28] LABS: Basophils % (A) 0 %; CH 34.2; CHCM 35.3; Eosinophils % (A) 0 %; HCT 38.4 % (34.0-46.0); HDW 2.59; HGB 13.2 gm/dL (11.4-16.0); Luc # (Auto) 0.12; Luc % (Auto) 2; Lymphocytes # (A) 1.1 k/uL (1.0-4.8); Lymphocytes % (A) 22 %; MCH 33.5 pg (25.0-35.0); MCHC 34.3 g/dL (31.0-37.0); MCV 97.5 fL (80.0-100.0); Mean Platelet Volume 7.4; Monocytes # (A) 0.2 k/uL (0-1.0); Monocytes % (A) 3 %; Neutrophils # (A) 3.6 k/uL (1.3-7.7); Neutrophils % (A) 72 %; RBC 3.94 m/uL (3.80-5.40); RDW 13.9 % (11.5-15.5); WBC (Perox) 5.51
[2016-10-16 09:33] LABS: ALT 36 U/L (9-52); AST 36 U/L (14-36); Alkaline Phosphatase 62 U/L (38-126); Anion Gap 8 mmol/L; Blood Urea Nitrogen 9 mg/dL (7-17); Calcium 8.2 mg/dL (8.4-10.2); Carbon Dioxide 30 mmol/L (22-30); Chloride 98 mmol/L (98-107); Glucose 89 mg/dL (74-99); Magnesium 1.6 mg/dL (1.6-2.3); Non-African American GFR(MDRD) >60 (>60 ml/min/1.73 sqM); Potassium 3.5 mmol/L (3.5-5.1); Sodium 136 mmol/L (137-145); Total Bilirubin 0.4 mg/dL (0.2-1.3); Total Protein 6.3 g/dL (6.3-8.2)
[2016-10-16] MEDS ORDERED: Magnesium Replacement Protocol 1 EACH MISC MISCELLANE PRN (11:24)
[2016-10-16] MEDS ORDERED: POTASSIUM CHLORIDE 20 MEQ, LIDOCAINE 2% INJ 20 MG in SODIUM CHLORIDE 0.9% 100 ML IVPB ONE (12:00)
[2016-10-16] MEDS: MAGNESIUM SULFATE-D5W PMX 1 GM in DEXTROSE/WATER 1 100ML.BAG IVPB SCH ×2 (13:22→14:46)
[2016-10-16] MEDS: guaiFENesin 600 MG TABLET.ER PO SCH ×2 (13:29→20:07)
[2016-10-17] MEDS: BENZOCAINE/MENTHOL LOZENG 1 EACH LOZENGE MUCOUS MEM PRN (02:46)
[2016-10-17] MEDS: HYDROcodone/APAP 10-325MG 1 EACH TAB PO PRN ×2 (06:18→18:34)
[2016-10-17] MEDS: SODIUM CHLORIDE 0.9% 1,000 ML IV SCH ×3 (06:20→23:27)
[2016-10-17] MEDS ORDERED: IBUPROFEN 600 MG TAB PO PRN (07:05)
[2016-10-17] MEDS: IPRATROPIUM-ALBUTEROL 3 ML NEB INHALATION SCH ×4 (07:54→21:39)
[2016-10-17] MEDS: guaiFENesin 600 MG TABLET.ER PO SCH ×2 (08:44→20:40)
[2016-10-17] MEDS: PANTOPRAZOLE 40 MG TABLET PO SCH (08:44)
[2016-10-17] MEDS: AZITHROMYCIN 500 MG TAB PO SCH (08:44)
[2016-10-17] MEDS: predniSONE 20 MG TAB PO SCH (08:44)
[2016-10-17] MEDS ORDERED: IBUPROFEN 600 MG TAB PO SCH (09:00)
--- NOTE | 2016-10-17 11:15 | XR ---
EXAMINATION TYPE: XR chest 2V DATE OF EXAM: 10/17/2016 COMPARISON: 10/15/2016 HISTORY: Shortness of breath TECHNIQUE: Frontal and lateral views of the chest are obtained. FINDINGS: Scattered senescent parenchymal changes noted. Hyperinflation compatible with COPD. Increased density right lower lobe may reflect underlying infiltrate. Heart size is stable. Mediastinal structures are stable and grossly unremarkable. No evidence for hilar prominence. Degenerative changes dorsal spine. IMPRESSION: 1. Increased density right lower lobe may reflect underlying infiltrate.
[2016-10-17] MEDS ORDERED: guaiFENesin SYRUP 100MG/5ML 200 MG/10 ML CUP PO PRN (12:40)
--- NOTE | 2016-10-17 13:38 | CONS ---
DATE OF CONSULTATION: A 55-year-old female who presented to the emergency department for evaluation of fever. The patient states the fever began on Thursday. She has been taking Tylenol and ibuprofen without much benefit. In addition, she had a bit of a dry cough. Also, short of breath and chest tightness. Her primary doctor is Dr. Corona and she also sees ( ) for chronic pain syndrome. We were asked to see the patient for COPD exacerbation and possible right lower lobe pneumonia. No nausea, vomiting, or diarrhea. No chest pain or chest discomfort. Dry cough as mentioned, fever. Just feeling rotten all over. The patient's home medications include alprazolam or Xanax, atenolol/hydrochlorothiazide, [place], albuterol inhaler and Advair. She does have an updraft machine, but it is broken. Does not have oxygen at home. Allergies are denied. Her medical history is positive for probable COPD and chronic pain syndrome. She also has anxiety. Denies other complaints. Does have a history of hypertension. Surgical history includes a . Social history is positive for at least 28 years of tobacco use at a pack, pack and a half a day. Drinks occasionally. No illicit drug use. Family history is noncontributory. Occupational history is noncontributory. REVIEW OF SYSTEMS: CONSTITUTIONAL: Fever. NEUROLOGICAL: Negative. HEENT: Negative. CARDIOVASCULAR: Negative. PULMONARY: Shortness of breath, dry cough, fever. GI/: Negative. RHEUMATOLOGICAL/IMMUNOLOGIC: Negative. ENDOCRINOLOGIC: Negative. DERMATOLOGIC: Negative. Vital signs include temperature 100.2, heart rate 80, respiratory rate 22, blood pressure, which is 104/64 and a room air saturation 91%, and 2 L saturation 98%. Appears in no acute distress. HEENT examination is grossly unremarkable. Mucous membranes are moist. No oral lesions. NECK: Supple. Full range of motion. No adenopathy or thyromegaly. Cardiovascular examination reveals regular rhythm and rate. Lungs reveal coarse rhonchi. Breath sounds are diminished. There are a few scattered wheezes. Crackles noted at the bases. ABDOMEN: Soft. Bowel sounds are heard. Extremities are intact. No cyanosis, clubbing, or edema. Skin without rash. Neurologic examination is nonfocal. Chest x-ray shows an infiltrate right lower lobe. Labs are reviewed. CBC is completely normal. PT, INR, PTT normal. Sodium 136, potassium 3.5, chloride 98, CO2 of 30, BUN and creatinine were 9 and 0.54. The rest of the labs look okay. Urine looks to be dirty with a bladder infection. It is cloudy, 2+ protein, moderate blood, large leukocyte esterase, 25, RBCs more than 182 WBCs and occasional white blood cell clumps. No bacteria noted. Medications are reviewed. She is on Tylenol, Zithromax, benzocaine ( ), ceftriaxone, Mucinex, hydrocodone, ibuprofen, DuoNeb, magnesium, Narcan, Zofran, Protonix, potassium, prednisone and an IV. I am going to add Symbicort 160/4.5 two puffs twice a day. The rest of the medications look okay. ASSESSMENT: 1. Chronic obstructive pulmonary disease exacerbation complicated by bronchopneumonia, right lower lobe. 2. Ongoing tobacco use. 3. Hypertension. 4. Chronic obstructive pulmonary disease. 5. Chronic pain. 6. Anxiety. PLAN: I will add Symbicort to the regimen. Additional recommendations and suggestions are forthcoming. Hopefully discharge in a day or so. No additional recommendations are made. She should have follow up in pulmonary clinic. She needs PFTs. Additional recommendations and suggestions are forthcoming. Prognosis is guarded.
[2016-10-17] MEDS: guaiFENesin-DM 100-10MG/5ML 10 ML CUP PO PRN (14:13)
[2016-10-17 20:20] LABS: Magnesium 1.6 mg/dL (1.6-2.3); Potassium 3.6 mmol/L (3.5-5.1)
[2016-10-17] MEDS: SYMBICORT 160-4.5 MCG INHALER INHALATION SCH (21:39)
[2016-10-17] MEDS: ALPRAZolam 0.5 MG TAB PO PRN (23:26)
[2016-10-18] MEDS: guaiFENesin-DM 100-10MG/5ML 10 ML CUP PO PRN ×3 (06:08→19:35)
[2016-10-18] MEDS: HYDROcodone/APAP 10-325MG 1 EACH TAB PO PRN ×2 (06:11→19:33)
[2016-10-18] MEDS: AZITHROMYCIN 500 MG TAB PO SCH (08:49)
[2016-10-18] MEDS: PANTOPRAZOLE 40 MG TABLET PO SCH (08:49)
[2016-10-18] MEDS: guaiFENesin 600 MG TABLET.ER PO SCH ×2 (08:49→20:08)
[2016-10-18] MEDS: predniSONE 20 MG TAB PO SCH (08:49)
[2016-10-18] MEDS: SYMBICORT 160-4.5 MCG INHALER INHALATION SCH ×2 (09:08→19:47)
[2016-10-18] MEDS: IPRATROPIUM-ALBUTEROL 3 ML NEB INHALATION SCH ×4 (09:08→19:47)
--- NOTE | 2016-10-18 10:54 | PN ---
A 55-year-old female who has history of COPD, chronic pain syndrome and also has a history of hypertension. She comes into the hospital with complaints of increasing shortness of breath, difficulty breathing, coughing, chest tightness. Her primary physician is Dr. Corona. She also sees a pain doctor. Her chest x-ray revealed what appeared to be a right lower lobe infiltrate. She is feeling a bit better today. Still very congested and wheezy. Still short of breath. Coughing and bringing up some yellow phlegm. No fever, no chills. No nausea, vomiting, or diarrhea. No chest pain. She is about 25% better she says. Currently, vital signs include temperature 98.7, heart rate 100, respiratory rate 22, blood pressure 131/84, mean 99, 2 L saturation 93%. Appears in no acute distress. HEENT examination is grossly unremarkable. Mucous membranes are moist. No oral lesions. Neck is supple. Full range of motion. No adenopathy or thyromegaly. Neck veins are flat. Cardiovascular examination reveals regular rhythm and rate. S1, S2 normal. No S3, S4 or murmur. Lungs reveal diffuse inspiratory and expiratory wheezes and rhonchi. Breath sounds are diminished. There is slight prolongation. The patient coughs and wheezes on forced maneuver. Abdomen is soft. Bowel sounds are heard. No masses or tenderness. Extremities are intact. No cyanosis, clubbing, or edema. Skin is without rash. Neurologic examination is nonfocal. Labs are reviewed. Nothing new to report. No chest x-ray information to report. Last chest x-ray was done yesterday. Medications were adjusted yesterday when she was seen in consultation. She is on good antibiotics, breathing treatments and so forth. ASSESSMENT: 1. Chronic obstructive pulmonary disease exacerbation complicated by bronchopneumonia right lower lobe. 2. Ongoing tobacco use with nicotine addiction. 3. Essential hypertension. 4. Chronic obstructive pulmonary disease. 5. Chronic pain. 6. Anxiety. PLAN: The patient is on appropriate medications. She is showing some improvement. Will continue with those medications including short -acting beta agonist, short-acting muscarinic antagonist, long-acting beta antagonist, inhaled corticosteroid, systemic corticosteroids including antibiotics. Additional recommendations and suggestions are forthcoming. Prognosis is guarded. Will continue to follow. In addition, the patient will see us in the office and have post hospital PFTs when she is feeling up to it. This will better give us an idea of how severe her chronic lung disease is.
[2016-10-18] MEDS: SODIUM CHLORIDE 0.9% 1,000 ML IV SCH ×2 (12:36→20:09)
[2016-10-18] MEDS ORDERED: ZOLPIDEM 10 MG TAB PO PRN (13:03)
[2016-10-18] MEDS ORDERED: MAGNESIUM SULFATE-D5W PMX 1 GM in DEXTROSE/WATER 1 100ML.BAG IVPB ONE (14:20)
--- NOTE | 2016-10-18 17:41 | PN ---
Patient looks much better today, but still appears to be wheezing quite a bit on exam and patient feels like everything is congested and patient is requesting more frequent albuterol ipratropium inhalational. REVIEW OF SYSTEMS: CARDIOVASCULAR: No chest pain, no orthopnea, no PND, no palpitations. GASTROINTESTINAL: No diarrhea, nausea or vomiting. No abdominal pain. Normoactive bowel sounds. NEUROLOGIC: No headaches, no weakness, no numbness. RESPIRATORY: Symptomatically patient does not feel she is doing much better compared to yesterday. Medications are reviewed. PHYSICAL EXAMINATION: Temperature 98.1, pulse of 100, respiratory rate of 22, blood pressure 131/81. Saturating at 91% on 2 L of O2 by nasal cannula. RESPIRATORY EXAMINATION: Significant expiratory wheezing was appreciated. No decreased air entry into bilateral lung joe. GENERAL: The patient is alert and oriented x3, not in any acute distress. Well developed, well nourished. HEENT: Pupils are round and equally reacting to light. EOMI. No scleral icterus. No conjunctival pallor. Normocephalic, atraumatic. No pharyngeal erythema. No thyromegaly. CARDIOVASCULAR: S1 and S2 present. No murmurs, rubs, or gallops. ABDOMEN: Soft, nontender, nondistended, normoactive bowel sounds. No palpable organomegaly. MUSCULOSKELETAL: No joint swelling or deformity. EXTREMITIES: No cyanosis, clubbing, or pedal edema. NEUROLOGICAL: Gross neurological examination did not reveal any focal deficits. SKIN: No rashes. LABORATORY DATA: None available from today. Magnesium is low, which will be supplemented. ASSESSMENT AND PLAN: 1. Sepsis secondary to pneumonia, patient will be continued on Rocephin and azithromycin. 2. Acute hypercapnic and hypoxic respiratory failure secondary to chronic obstructive pulmonary disease as well as pneumonia. Patient will be continued on systemic steroids, inhalational treatments and nicotine cessation counseling was provided. 3. Hypertension. 4. Hyponatremia, which resolved at this point of time, hypovolemic hyponatremia secondary to chlorthalidone. 5. Hypomagnesemia. 6. Asymptomatic bacteria for which patient will not require any antibiotics. 7. Nicotine cessation counseling was provided.
[2016-10-18] MEDS: ALPRAZolam 0.5 MG TAB PO PRN (22:10)
[2016-10-18] MEDS: IPRATROPIUM-ALBUTEROL 3 ML NEB INHALATION PRN (23:42)
[2016-10-19] MEDS: IPRATROPIUM-ALBUTEROL 3 ML NEB INHALATION PRN (03:29)
[2016-10-19] MEDS: SODIUM CHLORIDE 0.9% 1,000 ML IV SCH ×2 (06:29→15:47)
[2016-10-19] MEDS: IPRATROPIUM-ALBUTEROL 3 ML NEB INHALATION SCH ×4 (07:57→20:14)
[2016-10-19] MEDS: SYMBICORT 160-4.5 MCG INHALER INHALATION SCH ×2 (07:58→20:14)
[2016-10-19 08:04] LABS: CH 33.7; CHCM 34.7; HCT 35.5 % (34.0-46.0); HDW 2.77; HGB 12.1 gm/dL (11.4-16.0); MCH 33.2 pg (25.0-35.0); MCHC 34.1 g/dL (31.0-37.0); MCV 97.5 fL (80.0-100.0); Mean Platelet Volume 7.2; RBC 3.64 m/uL (3.80-5.40); RDW 13.8 % (11.5-15.5); WBC 5.7 k/uL (3.8-10.6)
[2016-10-19 08:17] LABS: Anion Gap 6 mmol/L; Blood Urea Nitrogen 2 mg/dL (7-17); Carbon Dioxide 34 mmol/L (22-30); Chloride 98 mmol/L (98-107); Glucose 82 mg/dL (74-99); Non-African American GFR(MDRD) >60 (>60 ml/min/1.73 sqM); Potassium 3.1 mmol/L (3.5-5.1); Sodium 138 mmol/L (137-145)
[2016-10-19] MEDS: AZITHROMYCIN 500 MG TAB PO SCH (08:31)
[2016-10-19] MEDS: HYDROcodone/APAP 10-325MG 1 EACH TAB PO PRN ×2 (08:31→19:57)
[2016-10-19] MEDS: guaiFENesin 600 MG TABLET.ER PO SCH ×2 (08:31→19:58)
[2016-10-19] MEDS: PANTOPRAZOLE 40 MG TABLET PO SCH (08:31)
[2016-10-19] MEDS: predniSONE 20 MG TAB PO SCH (08:31)
--- NOTE | 2016-10-19 21:00 | PN ---
Patient is an elderly a 55-year-old female with a history of underlying COPD, chronic pain syndrome, and hypertension. She was admitted to the hospital with a diagnosis of increasing shortness of breath, difficulty breathing, coughing, chest congestion, and chest tightness. Her primary is Dr. Corona. She has never seen a lung doctor. Her chest x-ray showed evidence of right lower lobe infiltrate. Clinically she is doing better. There was significant bronchospasm. She is improved, but not certainly back to baseline. Probably should stay in the hospital for another day or so. Still has lots of chest tightness, wheezing, cough, lots of chest congestion. Things are improved though. She is able to breathe easier. Temperature 98, heart rate 88, respiratory rate 22, blood pressure 120/72, mean 90, 2 liters saturation 93%. Appears in no acute distress. HEENT examination is grossly unremarkable. Mucous membranes are moist. No oral lesions. Neck is supple. Full range of motion. No adenopathy or thyromegaly. Neck veins are flat. Cardiovascular examination reveals regular rhythm and rate, S1, S2 normal. No S3, S4 or murmur. Lungs reveal wheezes or rhonchi. Breath sounds are improved. She is moving air better. There is prolongation on forced maneuver. She wheezes and coughs on forced maneuver. ABDOMEN: Soft. Bowel sounds are heard. No masses or tenderness. EXTREMITIES: Intact. No cyanosis, clubbing, or edema. Skin is without rash. NEUROLOGICAL: Examination is nonfocal. Labs are reviewed. White count 5.7, hemoglobin and hematocrit, platelet count normal. Sodium 138, potassium, low at 3.1, chloride 98, CO2 of 34, BUN and creatinine were 2 and 0.42. Microbiology is currently all negative. No recent x-ray to report. The last one was done in October 17. That has been reviewed. Medications are reviewed. ASSESSMENT: 1. Chronic obstructive pulmonary disease exacerbation complicated by bronchopneumonia, right lower lobe. 2. Ongoing tobacco use with nicotine addiction. 3. Essential hypertension. 4. Chronic obstructive pulmonary disease. 5. Chronic pain. 6. Anxiety. PLAN: The patient is still quite bronchospastic. We will continue with current medications. She is continued antibiotics steroids, bronchodilators and so forth. We will continue to follow closely. Prognosis is guarded. She should have follow-up with one of us in the office for pulmonary function testing.
--- NOTE | 2016-10-19 23:03 | PN ---
The patient is still having significant expiratory wheezing, but although her overall respiratory status is improved. Patient's potassium is low. She will be supplemented. REVIEW OF SYSTEMS: CARDIOVASCULAR: No chest pain, no orthopnea, no PND, no palpitations. PULMONARY: Denied any shortness of breath. No cough or hemoptysis. GASTROINTESTINAL: No diarrhea, nausea or vomiting. No abdominal pain. Normoactive bowel sounds. NEUROLOGIC: No headaches, no weakness, no numbness. Medications were reviewed. PHYSICAL EXAMINATION: VITAL SIGNS: Temperature 98.0, pulse of 100, respiratory rate of 22, blood pressure is 128/72. Saturating at 95% on 2 L nasal cannula. GENERAL: The patient is alert and oriented x3, not in any acute distress. Well developed, well nourished. HEENT: Pupils are round and equally reacting to light. EOMI. No scleral icterus. No conjunctival pallor. Normocephalic, atraumatic. No pharyngeal erythema. No thyromegaly. CARDIOVASCULAR: S1 and S2 present. No murmurs, rubs, or gallops. PULMONARY: Significant expiratory wheezing with crackles in the right lower lung bases posteriorly, although wheezing may have improved compared to yesterday. Decreased air entry into bilateral lung joe. ABDOMEN: Soft, nontender, nondistended, normoactive bowel sounds. No palpable organomegaly. MUSCULOSKELETAL: No joint swelling or deformity. EXTREMITIES: No cyanosis, clubbing, or pedal edema. NEUROLOGICAL: Gross neurological examination did not reveal any focal deficits. SKIN: No rashes. LABORATORY DATA: CBC and CMP are abnormal for low potassium of 3.1, which will be supplemented. ASSESSMENT AND PLAN: 1. Sepsis secondary to pneumonia. Antibiotics in the form of Rocephin and azithromycin will be continued. 2. Acute hypercapnic and hypoxic respiratory failure secondary to exacerbation of pneumonia. Continue with antibiotics. 3. Hyponatremia; resolved. 4. Hypokalemia, potassium will be supplemented. 5. Hypomagnesemia. 6. Asymptomatic bacteriuria which will not require any antibiotics, although patient is on antibiotics for pneumonia which should help even if she has urinary tract infection.
[2016-10-20] MEDS: SODIUM CHLORIDE 0.9% 1,000 ML IV SCH ×3 (02:12→20:16)
[2016-10-20] MEDS: IPRATROPIUM-ALBUTEROL 3 ML NEB INHALATION SCH ×4 (07:11→20:26)
[2016-10-20] MEDS: SYMBICORT 160-4.5 MCG INHALER INHALATION SCH (07:11)
[2016-10-20] MEDS: guaiFENesin 600 MG TABLET.ER PO SCH ×2 (08:56→20:16)
[2016-10-20] MEDS: PANTOPRAZOLE 40 MG TABLET PO SCH (08:56)
[2016-10-20] MEDS: predniSONE 20 MG TAB PO SCH (08:56)
[2016-10-20] MEDS: AZITHROMYCIN 500 MG TAB PO SCH (08:56)
[2016-10-20] MEDS: HYDROcodone/APAP 10-325MG 1 EACH TAB PO PRN ×2 (09:00→20:16)
[2016-10-20 09:33] LABS: Anion Gap 9 mmol/L; Blood Urea Nitrogen 7 mg/dL (7-17); Calcium 8.4 mg/dL (8.4-10.2); Carbon Dioxide 27 mmol/L (22-30); Chloride 105 mmol/L (98-107); Glucose 75 mg/dL (74-99); Non-African American GFR(MDRD) >60 (>60 ml/min/1.73 sqM); Potassium 3.5 mmol/L (3.5-5.1); Sodium 141 mmol/L (137-145)
--- NOTE | 2016-10-20 12:46 | PN ---
Patient remains bronchospastic but able to cough up phlegm today. Patient has significant improvement compared to a couple days ago. REVIEW OF SYSTEM: RESPIRATORY: As described in HPI. CARDIOVASCULAR: No chest pain, no orthopnea, no PND, no palpitations. GASTROINTESTINAL: No diarrhea, nausea or vomiting. No abdominal pain. Normoactive bowel sounds. NEUROLOGIC: No headaches, no weakness, no numbness. Medications were reviewed. PHYSICAL EXAMINATION: Temperature 96.9, pulse 104, respiratory rate of 16, blood pressure is 124/77, patient is saturating at 94% on 2 L of nasal cannula. RESPIRATORY: Patient still continues to have significant wheezing, but her respiratory distress did improve. GENERAL: The patient is alert and oriented x3, not in any acute distress. Well developed, well nourished. HEENT: Pupils are round and equally reacting to light. EOMI. No scleral icterus. No conjunctival pallor. Normocephalic, atraumatic. No pharyngeal erythema. No thyromegaly. CARDIOVASCULAR: S1 and S2 present. No murmurs, rubs, or gallops. ABDOMEN: Soft, nontender, nondistended, normoactive bowel sounds. No palpable organomegaly. MUSCULOSKELETAL: No joint swelling or deformity. EXTREMITIES: No cyanosis, clubbing, or pedal edema. NEUROLOGICAL: Gross neurological examination did not reveal any focal deficits. SKIN: No rashes. LABORATORY DATA: Basic metabolic profile essentially within normal limits with mildly low potassium of 3.7, which will be supplemented. ASSESSMENT AND PLAN: 1. Sepsis secondary to pneumonia. Antibiotics will be continued in the form of Rocephin and azithromycin. 2. Acute hypercapnic and hypoxic respiratory failure secondary to chronic obstructive pulmonary disease exacerbation as well as pneumonia. Patient, I believe will improve significantly tomorrow and most probably can be discharged tomorrow. 3. Hyponatremia, which resolved hypovolemic hyponatremia. 4. Hypokalemia, potassium will be supplemented. 5. Asymptomatic bacteria. Patient is already on antibiotics for pneumonia. Patient, I believe will have significant improvement since she started coughing today. By tomorrow she will have significant improvement and most probably can be discharged tomorrow.
[2016-10-20] MEDS: IPRATROPIUM-ALBUTEROL 3 ML NEB INHALATION PRN (13:24)
--- NOTE | 2016-10-20 15:17 | XR ---
EXAMINATION TYPE: XR chest 2V DATE OF EXAM: 10/20/2016 COMPARISON: Chest x-ray October 17, 2016. HISTORY: Cough and fever. TECHNIQUE: Frontal and lateral views of the chest are obtained. FINDINGS: Underlying emphysematous change is felt present with flattened hemidiaphragms on lateral v iew. Increased opacity medial right lung base is redemonstrated improved in appearance on lateral vie w. No new focal airspace opacity, pleural effusion, or pneumothorax is seen bilaterally. The cardiac silhouette size is within normal limits with atherosclerotic change in thoracic aorta. The osseous structures are intact. IMPRESSION: Chronic emphysematous change with improving right medial posterior lower lobe infiltrate , no new infiltrate is seen.
[2016-10-20] MEDS: INSULIN LISPRO (humaLOG) 300 UNIT/3 ML VIAL SQ SCH ×2 (17:08→21:38)
[2016-10-20] MEDS: methylPREDNISolone SOD SUCCI 125 MG/2 ML VIAL IV SCH ×2 (17:08→23:27)
[2016-10-20 17:13] LABS: Glucose,Whole Blood 181 mg/dL (75-99)
--- NOTE | 2016-10-20 18:19 | P.PN ---
Subjective This is a 55-year-old female patient with known history of COPD who presented to the hospital because of a right lung pneumonia. The patient also known to have hypertension and chronic pain syndrome. Over the past 2 days the patient was being treated with a combination of bronchodilators, systemic steroids and antibiotics. She is not seeing much of an improvement and she remains short of breath. She feels her lungs are still squeezing and she gets short of breath with limited amount of activity. No fever. No chills. No hemoptysis. No pleurisy. She is a chronic smoker. Objective - Vital Signs Vital signs: Vital Signs Temp 97 F L 10/20/16 15:00 Pulse 100 10/20/16 16:26 Resp 20 10/20/16 15:00 BP 146/76 10/20/16 15:00 Pulse Ox 91 L 10/20/16 15:00 Intake & Output 10/19/16 10/20/16 10/20/16 18:59 06:59 18:59 Intake Total 1170 Balance 1170 Intake: IV 850 Sodium Chloride 0.9% 1, 800 000 ml @ 100 mls/hr IV . Q10H JOSE Rx#:[id number] cefTRIAXone 1,000 mg In 50 Sodium Chloride 0.9% 50 ml @ 100 mls/hr IVPB Q24HR JOSE Rx#:[id number] Oral 320 Other: # Voids 1 3 4 - Exam The patient appeared well nourished and normally developed. Vital signs as documented. Head exam is unremarkable. No scleral icterus or corneal arcus noted. Neck is without jugular venous distension, thyromegaly, or carotid bruits. Carotid upstrokes are brisk bilaterally. Lung sounds are diminished bilaterally and there is prolongation of the expiratory phase of breathing and scattered expiratory wheezes throughout the lung joe.. Cardiac exam reveals the PMI to be normally sized and situated. Rhythm is regular. First and second heart sounds normal. No murmurs, rubs or gallops. Abdominal exam reveals normal bowel sounds, no masses, no organomegaly and no aortic enlargement. Extremities are nonedematous and both femoral and pedal pulses are normal. - Labs CBC & Chem 7: 10/19/16 07:22 10/20/16 07:16 Labs: Abnormal Lab Results - Last 24 Hours (Table) 10/20/16 10/20/16 Range/Units 07:16 16:58 Creatinine 0.47 L (0.52-1.04) mg/dL POC Glucose (mg/dL) 181 H (75-99) mg/dL Microbiology - Last 24 Hours (Table) 10/15/16 09:30 Blood Culture - Preliminary Blood No Growth after 120 hours Assessment and Plan Plan: Assessment 1 Right lung pneumonia 2 acute COPD exacerbation secondary to right lung pneumonia 3 nicotine addiction 4 hypertension 5 chronic pain 6 anxiety Plan Switch this patient to a combination of Perforomist and Pulmicort overestimates twice a day. Keep the patient put the patient IV Solu Medrol 60 every 6 hours. Continue DuoNeb about treatments around the clock. Repeat chest x-ray done today shows improvement of the right lung pneumonia. He is on this, I'm going to Continue Rocephin and Zithromax. Reevaluate her condition in a.m.
[2016-10-20 18:39] LABS: Hemoglobin A1C 6.2 % (4.2-6.1)
[2016-10-20] MEDS: ALPRAZolam 0.5 MG TAB PO PRN (20:16)
[2016-10-20] MEDS: BUDESONIDE 0.5 MG/2 ML NEBU INHALATION SCH (20:26)
[2016-10-20] MEDS: FORMOTEROL FUMARATE 20 MCG/2 ML NEBU INHALATION SCH (20:26)
[2016-10-20 20:55] LABS: Glucose,Whole Blood 200 mg/dL (75-99)
[2016-10-21] MEDS: IPRATROPIUM-ALBUTEROL 3 ML NEB INHALATION PRN (03:18)
[2016-10-21] MEDS: methylPREDNISolone SOD SUCCI 125 MG/2 ML VIAL IV SCH ×3 (05:05→17:45)
[2016-10-21 07:35] LABS: Glucose,Whole Blood 116 mg/dL (75-99)
[2016-10-21] MEDS: IPRATROPIUM-ALBUTEROL 3 ML NEB INHALATION SCH ×4 (07:57→20:17)
[2016-10-21] MEDS: BUDESONIDE 0.5 MG/2 ML NEBU INHALATION SCH ×2 (07:57→20:18)
[2016-10-21] MEDS: FORMOTEROL FUMARATE 20 MCG/2 ML NEBU INHALATION SCH ×2 (07:58→20:18)
[2016-10-21] MEDS: INSULIN LISPRO (humaLOG) 300 UNIT/3 ML VIAL SQ SCH ×4 (08:52→22:10)
[2016-10-21] MEDS: PANTOPRAZOLE 40 MG TABLET PO SCH (09:07)
[2016-10-21] MEDS: AZITHROMYCIN 500 MG TAB PO SCH (09:07)
[2016-10-21] MEDS: guaiFENesin 600 MG TABLET.ER PO SCH ×2 (09:07→22:10)
[2016-10-21] MEDS: HYDROcodone/APAP 10-325MG 1 EACH TAB PO PRN ×2 (09:28→20:18)
[2016-10-21] MEDS: SODIUM CHLORIDE 0.9% 1,000 ML IV SCH ×2 (09:29→19:03)
[2016-10-21 11:37] LABS: Glucose,Whole Blood 146 mg/dL (75-99)
[2016-10-21] MEDS ORDERED: RX INFO: IV CONTRAST WAS GIVEN 1 EACH MISC MISCELLANE PRN (13:42)
--- NOTE | 2016-10-21 14:46 | P.PN ---
Subjective Principal diagnosis: Right lung pneumonia This is a 55-year-old female patient with known history of COPD who presented to the hospital because of a right lung pneumonia. The patient also known to have hypertension and chronic pain syndrome. Over the past 2 days the patient was being treated with a combination of bronchodilators, systemic steroids and antibiotics. She is not seeing much of an improvement and she remains short of breath. She feels her lungs are still squeezing and she gets short of breath with limited amount of activity. No fever. No chills. No hemoptysis. No pleurisy. She is a chronic smoker. The patient is seen again today 10/21/2016 in follow-up on the regular medical floor. She is awake and alert in no acute distress. Unfortunately the patient has been slow to progress. She continues with a loose nonproductive cough. Dyspnea on exertion. Wheezing. She has been maintained on bronchodilators, Perforomist and budesonide inhalations, steroids, Mucinex, Robitussin, ceftriaxone and azithromycin. All without much improvement. Objective - Vital Signs Vital signs: Vital Signs Temp 97.6 F 10/21/16 14:35 Pulse 85 10/21/16 14:35 Resp 18 10/21/16 14:35 BP 136/60 10/21/16 14:35 Pulse Ox 88 L 10/21/16 14:35 Intake & Output 10/20/16 10/21/16 10/21/16 18:59 06:59 18:59 Weight 74.843 kg Other: # Voids 4 2 - Exam GENERAL EXAM: Alert, comfortable in no apparent distress. HEAD: Normocephalic. EYES: Normal reaction of pupils, equal size. NOSE: Clear with pink turbinates. THROAT: No erythema or exudates. NECK: No masses, no JVD. CHEST: No chest wall deformity. LUNGS: Equal air entry with bilateral end expiratory wheeze. Diminished. CVS: S1 and S2 normal with no audible mumurs, regular rhythm. ABDOMEN: No hepatosplenomegaly, normal bowel sounds, no guarding or rigidity. SPINE: No scoliosis or deformity SKIN: No rashes CENTRAL NERVOUS SYSTEM: No focal deficits, tone is normal in all 4 extremities. Extremities: There is no significant peripheral edema. No clubbing, no cyanosis. Peripheral pulses are intact. - Labs CBC & Chem 7: 10/19/16 07:22 10/20/16 07:16 Labs: Abnormal Lab Results - Last 24 Hours (Table) 10/20/16 10/20/16 10/20/16 Range/Units 07:16 16:58 20:54 POC Glucose (mg/dL) 181 H 200 H (75-99) mg/dL Hemoglobin A1c 6.2 H (4.2-6.1) % 10/21/16 10/21/16 Range/Units 07:28 11:29 POC Glucose (mg/dL) 116 H 146 H (75-99) mg/dL Hemoglobin A1c (4.2-6.1) % Microbiology - Last 24 Hours (Table) 10/15/16 09:30 Blood Culture - Final Blood No Growth after 144 hours Assessment and Plan Plan: Assessment 1 Right lung pneumonia 2 acute COPD exacerbation secondary to right lung pneumonia 3 nicotine addiction 4 hypertension 5 chronic pain 6 anxiety Plan: The patient was seen and evaluated by Dr. Hull. She has been quite slow to progress. We'll go ahead and schedule her for bronchoscopy with BAL in the morning. We'll continue with her current medications. The patient is agreeable to the plan. We'll continue to follow.
--- NOTE | 2016-10-21 16:12 | P.PN ---
Subjective Date of service 10/21/2016. Progress note being dictated for Dr. Obie Drake history: This is a 55-year-old female admitted with sepsis, pneumonia, acute hypercapnic and hypoxic respiratory failure secondary to his acute COPD exacerbation, and multiple other medical issues. Maintained on nebulized bronchodilators, Solu-Medrol,,Rocephin, Zithromax. Breathing slowly improved, remains tight, wheezy with nonproductive cough. Anxious and depressed over hospitalization. Bronchoscopy being discussed as per pulmonary. Afebrile. Review of systems: HEENT: Denies headache or focal deficits. Denies any dizziness or lightheadedness. Respiratory: Complains of increased shortness of breath. Cardiac: Denies any chest pain, palpitations. GI: Denies any nausea, vomiting, or diarrhea. Denies any abdominal tenderness. : Denies any dysuria. Psychiatry: States anxiety and feeling down in regards to slow improvement. Active Medications Acetaminophen (Tylenol Tab) 650 mg PO Q6HR PRN PRN Reason: Mild Pain or Fever > 100.5 Last Admin: 10/17/16 02:42 Dose: 650 mg Hydrocodone Bitart/Acetaminophen ([place] 10) 1 each PO BID PRN PRN Reason: Moderate Pain Last Admin: 10/21/16 09:28 Dose: 1 each Albuterol/Ipratropium (Duoneb 0.5 Mg-3 Mg/3 Ml Soln) 3 ml INHALATION RT-QID JOSE Last Admin: 10/21/16 11:43 Dose: 3 ml Albuterol/Ipratropium (Duoneb 0.5 Mg-3 Mg/3 Ml Soln) 3 ml INHALATION RT-Q2H PRN PRN Reason: Shortness Of Breath Or Wheezing Last Admin: 10/21/16 03:18 Dose: 3 ml Alprazolam (Xanax) 0.5 mg PO BID PRN PRN Reason: Anxiety Last Admin: 10/20/16 20:16 Dose: 0.5 mg Azithromycin (Zithromax) 500 mg PO DAILY JOSE Last Admin: 10/21/16 09:07 Dose: 500 mg Benzocaine/Menthol (Cepacol Lozenge) 1 each MUCOUS MEM Q4HR PRN PRN Reason: cough Last Admin: 10/17/16 02:46 Dose: 1 each Budesonide (Pulmicort) 0.5 mg INHALATION RT-BID [facility] Last Admin: 10/21/16 07:57 Dose: 0.5 mg Formoterol Fumarate (Perforomist) 20 mcg INHALATION RT-BID [facility] Last Admin: 10/21/16 07:58 Dose: 20 mcg Guaifenesin (Mucinex) 1,200 mg PO Q12HR [facility] Last Admin: 10/21/16 09:07 Dose: 1,200 mg Guaifenesin/Dextromethorphan (Robitussin Dm) 10 ml PO Q6H PRN PRN Reason: Cough Last Admin: 10/18/16 19:35 Dose: 10 ml Sodium Chloride (Saline 0.9%) 1,000 mls @ 100 mls/hr IV .Q10H [facility] Last Admin: 10/21/16 09:29 Dose: 100 mls/hr Ceftriaxone Sodium 1,000 mg/ (Sodium Chloride) 50 mls @ 100 mls/hr IVPB Q24HR [facility] Last Admin: 10/21/16 09:07 Dose: 100 mls/hr Ibuprofen (Motrin) 600 mg PO QID PRN PRN Reason: Fever and/ or Pain Last Admin: 10/17/16 07:27 Dose: 600 mg Insulin Human Lispro (Humalog) 0 unit SQ ACHS [facility] PRN Reason: Protocol Last Admin: 10/21/16 12:09 Dose: 2 unit Methylprednisolone Sodium Succinate (Solu-Medrol) 60 mg IV Q6HR [facility] Last Admin: 10/21/16 12:08 Dose: 60 mg Miscellaneous Information (Potassium Per Protocol) 1 each MISCELLANE DAILY PRN ; Protocol PRN Reason: Per Protocol Miscellaneous Information (Magnesium Per Protocol) 1 each MISCELLANE DAILY PRN ; Protocol PRN Reason: Per Protocol Miscellaneous Information (Rx Info: Iv Contrast Was Given) 1 each MISCELLANE DAILY PRN PRN Reason: Per Protocol Stop: 10/23/16 13:42 Morphine Sulfate (Morphine Sulfate (Inj)) 4 mg IV Q4HR PRN PRN Reason: Severe Pain Last Admin: 10/15/16 14:45 Dose: 4 mg Naloxone HCl (Narcan) 0.2 mg IV Q2M PRN PRN Reason: Opioid Reversal Ondansetron HCl (Zofran) 4 mg IVP Q6HR PRN PRN Reason: Nausea And Vomiting Pantoprazole Sodium (Protonix) 40 mg PO AC-BRKFST JOSE Last Admin: 10/21/16 09:07 Dose: 40 mg Zolpidem Tartrate (Ambien) 10 mg PO HS PRN PRN Reason: Insomnia Objective - Vital Signs Vital signs: Vital Signs Temp 97.6 F 10/21/16 14:35 Pulse 85 10/21/16 14:35 Resp 18 10/21/16 14:35 BP 136/60 10/21/16 14:35 Pulse Ox 94 L 10/21/16 14:42 Intake & Output 10/20/16 10/21/16 10/21/16 18:59 06:59 18:59 Weight 74.843 kg Other: # Voids 4 2 1 - Exam PHYSICAL EXAM: VITAL SIGNS: [As above] GENERAL: [Sitting up in bed, no acute distress] HEENT: [Pupils equal conjunctiva normal. Facial rosacea] NECK: [Supple, no JVD] RESPIRATORY EFFORT:[ Increased] LUNGS: Tight ,diminished with bilateral expiratory wheeze[] CARDIOVASCULAR[ regular S1 and S2 with no murmurs rubs or gallops, no edema] GI: [Abdomen soft, nontender, positive bowel sounds. PSYCH: [Alert and oriented -3, mood and affect anxious] NEURO: Gross neurological examination did not reveal any focal deficits - Labs CBC & Chem 7: 10/19/16 07:22 10/20/16 07:16 Labs: Abnormal Lab Results - Last 24 Hours (Table) 10/20/16 10/20/16 10/20/16 Range/Units 07:16 16:58 20:54 POC Glucose (mg/dL) 181 H 200 H (75-99) mg/dL Hemoglobin A1c 6.2 H (4.2-6.1) % 10/21/16 10/21/16 Range/Units 07:28 11:29 POC Glucose (mg/dL) 116 H 146 H (75-99) mg/dL Hemoglobin A1c (4.2-6.1) % Microbiology - Last 24 Hours (Table) 10/15/16 09:30 Blood Culture - Final Blood No Growth after 144 hours Assessment and Plan Plan: 1. [ Sepsis secondary to acute right lung pneumonia]. 2. [ Acute COPD exacerbation secondary to the above]. 3. [ Acute hypercapnic and hypoxic respiratory failure secondary to the above]. 4. [ Hypovolemic Hyponatremia, resolved]. 5. [ Hypokalemia]. 6. [ Ongoing nicotine abuse]. 7. [ Anxiety]. 8. Chronic pain 9. Hypertension Plan: Continue on current medication regime, nebulized bronchodilators, steroids , antibiotics, antidepressant, monitoring and symptomatic treatment. Bronchoscopy as mentioned above scheduled for tomorrow. Follow closely with pulmonary. Further recommendations to follow. The impression and plan of care has been dictated as directed. : I performed a H&P examination of this patient and discussed the same with the dictator. I agree with the dictator's note. Any additional findings/opinions/ etc. will be noted.
--- NOTE | 2016-10-21 16:47 | CT ---
EXAMINATION TYPE: CT chest w con DATE OF EXAM: 10/21/2016 COMPARISON: NONE HISTORY: Chronic cough and congestion. CT DLP: 302.1 mGycm Automated exposure control for dose reduction was used. CONTRAST: CT scan of the chest is performed with IV Contrast, patient injected with 100 mL of Omnipaque 300. FINDINGS: There is mild diffuse pulmonary emphysema. There is a reticular nodular and interstitial infiltrate i n the right lower lobe. There is no pleural effusion. I see no pulmonary mass. There is a similar min imal infiltrate in the anterior segment of the left upper lobe. Thoracic aorta is atheromatous. There are no hilar masses. There is no mediastinal adenopathy. There is no evidence of aortic aneurysm or dissection. There is no pericardial effusion. Bony thorax appear s intact. IMPRESSION: Patchy reticular nodular pulmonary infiltrates in the left upper lobe and right lower lo be probably related to inflammatory disease. Mild pulmonary emphysema. Atheromatous aorta.
[2016-10-21 17:00] LABS: Glucose,Whole Blood 127 mg/dL (75-99)
[2016-10-21 21:29] LABS: Glucose,Whole Blood 144 mg/dL (75-99)
[2016-10-22] MEDS: methylPREDNISolone SOD SUCCI 125 MG/2 ML VIAL IV SCH ×5 (00:02→23:17)
[2016-10-22] MEDS: SODIUM CHLORIDE 0.9% 1,000 ML IV SCH ×3 (06:08→23:17)
[2016-10-22] MEDS: MORPHINE SULFATE 4 MG/ML SYRINGE IV PRN (06:18)
[2016-10-22 07:34] LABS: Glucose,Whole Blood 113 mg/dL (75-99)
[2016-10-22 07:58] LABS: Basophils % (A) 0 %; CH 33.8; CHCM 34.4; Eosinophils % (A) 0 %; HCT 36.6 % (34.0-46.0); HDW 2.67; HGB 12.7 gm/dL (11.4-16.0); Luc # (Auto) 0.13; Luc % (Auto) 1; Lymphocytes # (A) 0.9 k/uL (1.0-4.8); Lymphocytes % (A) 10 %; MCH 34.3 pg (25.0-35.0); MCHC 34.8 g/dL (31.0-37.0); MCV 98.6 fL (80.0-100.0); Mean Platelet Volume 6.8; Monocytes # (A) 0.4 k/uL (0-1.0); Monocytes % (A) 4 %; Neutrophils # (A) 7.7 k/uL (1.3-7.7); Neutrophils % (A) 84 %; RBC 3.71 m/uL (3.80-5.40); RDW 13.9 % (11.5-15.5); WBC 9.2 k/uL (3.8-10.6); WBC (Perox) 9.65
[2016-10-22 08:08] LABS: Anion Gap 9 mmol/L; Blood Urea Nitrogen 15 mg/dL (7-17); Calcium 8.1 mg/dL (8.4-10.2); Carbon Dioxide 32 mmol/L (22-30); Chloride 100 mmol/L (98-107); Glucose 117 mg/dL (74-99); Non-African American GFR(MDRD) >60 (>60 ml/min/1.73 sqM); Potassium 3.8 mmol/L (3.5-5.1); Sodium 141 mmol/L (137-145)
[2016-10-22] MEDS: IPRATROPIUM-ALBUTEROL 3 ML NEB INHALATION SCH ×4 (08:19→20:49)
[2016-10-22] MEDS: BUDESONIDE 0.5 MG/2 ML NEBU INHALATION SCH ×2 (08:19→20:49)
[2016-10-22] MEDS: FORMOTEROL FUMARATE 20 MCG/2 ML NEBU INHALATION SCH ×2 (08:19→20:49)
[2016-10-22] MEDS: INSULIN LISPRO (humaLOG) 300 UNIT/3 ML VIAL SQ SCH ×4 (09:16→21:58)
[2016-10-22] MEDS: PANTOPRAZOLE 40 MG TABLET PO SCH (09:16)
[2016-10-22] MEDS: guaiFENesin 600 MG TABLET.ER PO SCH ×2 (09:17→21:58)
--- NOTE | 2016-10-22 09:29 | PN ---
DATE OF SERVICE: 10/21/2016 This 55-year-old woman who was admitted with sepsis secondary to acute right lung pneumonia is being closely monitored. I have seen and evaluated the patient with the nurse practitioner. Please refer to the nurse practitioner notes and impression documented as a scribe for further information. Prognosis is guarded. Continue with antibiotics. Further recommendations to follow.
[2016-10-22 12:02] LABS: Glucose,Whole Blood 128 mg/dL (75-99)
[2016-10-22] MEDS ORDERED: LIDOCAINE 2% (PF) 20 MG/ML 10ML INHALATION ONE (13:53)
[2016-10-22] MEDS ORDERED: PROPOFOL 10 MG/ML 20 ML VIAL IV ONE (14:04)
[2016-10-22] MEDS ORDERED: IV FLUID CONTINUATION 1,000 ML IV ONE (14:06)
--- NOTE | 2016-10-22 14:29 | P.PN ---
Subjective This is a 55-year-old female patient with known history of COPD who presented to the hospital because of a right lung pneumonia. The patient also known to have hypertension and chronic pain syndrome. Over the past 2 days the patient was being treated with a combination of bronchodilators, systemic steroids and antibiotics. She is not seeing much of an improvement and she remains short of breath. She feels her lungs are still squeezing and she gets short of breath with limited amount of activity. No fever. No chills. No hemoptysis. No pleurisy. She is a chronic smoker. The patient is seen again today 10/21/2016 in follow-up on the regular medical floor. She is awake and alert in no acute distress. Unfortunately the patient has been slow to progress. She continues with a loose nonproductive cough. Dyspnea on exertion. Wheezing. She has been maintained on bronchodilators, Perforomist and budesonide inhalations, steroids, Mucinex, Robitussin, ceftriaxone and azithromycin. All without much improvement. On 10/22/2016, the patient is essentially the same. Denies having any lifting improvement with few days of treatment with antibiotics and systemic steroids. The patient on a combination of Rocephin and Zithromax. The patient on IV Solu- Medrol. The patient is on a combination of Perforomist and does not about treatments. The patient is also on DuoNeb about treatments around the clock. Despite that, she is feeling that everything is quite restricted. She is unable to cough up any respiratory secretions. She is short of breath with limited amount of activity. Based on all this, a CAT scan of the chest was done that showed patchy reticulonodular infiltrates in the left upper lobe and in the right lower lobe related to an underlying pneumonia. There is also an underlying mild pulmonary emphysema. The plan is to proceed with a bronchoscopy and therapeutic it was suctioning and bronchioloalveolar lavage today. Objective - Vital Signs Vital signs: Vital Signs Temp 96.4 F L 10/22/16 07:00 Pulse 105 H 10/22/16 13:31 Resp 16 10/22/16 08:00 BP 158/78 10/22/16 07:00 Pulse Ox 92 L 10/22/16 07:00 Intake & Output 10/21/16 10/22/16 10/22/16 18:59 06:59 18:59 Intake Total 100 Balance 100 Weight 74.843 kg Intake: Oral 100 Other: # Voids 1 3 1 - Exam The patient appeared well nourished and normally developed. Vital signs as documented. Head exam is unremarkable. No scleral icterus or corneal arcus noted. Neck is without jugular venous distension, thyromegaly, or carotid bruits. Carotid upstrokes are brisk bilaterally. Lung sounds are diminished bilaterally and there is prolongation of the expiratory phase of breathing and scattered expiratory wheezes throughout the lung joe.. Cardiac exam reveals the PMI to be normally sized and situated. Rhythm is regular. First and second heart sounds normal. No murmurs, rubs or gallops. Abdominal exam reveals normal bowel sounds, no masses, no organomegaly and no aortic enlargement. Extremities are nonedematous and both femoral and pedal pulses are normal. - Labs CBC & Chem 7: 10/22/16 07:03 10/22/16 07:03 Labs: Abnormal Lab Results - Last 24 Hours (Table) 10/21/16 10/21/16 10/22/16 Range/Units 16:57 21:24 07:03 RBC 3.71 L (3.80-5.40) m/uL Lymphocytes # 0.9 L (1.0-4.8) k/uL Carbon Dioxide (22-30) mmol/L Creatinine (0.52-1.04) mg/dL Glucose (74-99) mg/dL POC Glucose (mg/dL) 127 H 144 H (75-99) mg/dL Calcium (8.4-10.2) mg/dL 10/22/16 10/22/16 10/22/16 Range/Units 07:03 07:28 11:53 RBC (3.80-5.40) m/uL Lymphocytes # (1.0-4.8) k/uL Carbon Dioxide 32 H (22-30) mmol/L Creatinine 0.46 L (0.52-1.04) mg/dL Glucose 117 H (74-99) mg/dL POC Glucose (mg/dL) 113 H 128 H (75-99) mg/dL Calcium 8.1 L (8.4-10.2) mg/dL Microbiology - Last 24 Hours (Table) 10/15/16 09:30 Blood Culture - Final Blood No Growth after 144 hours Assessment and Plan Plan: Assessment 1 Right lung pneumonia. The CAT scan of the chest was reviewed. There is a patchy left ago another infiltrate in the left upper lobe and the right lower lobe. The patient has had no significant improvement over the past few days and the patient will be having a bronchoscopy and therapeutic it was suctioning and the bronchioloalveolar lavage today. 2 acute COPD exacerbation secondary to right lung pneumonia 3 nicotine addiction 4 hypertension 5 chronic pain 6 anxiety Plan Continue the combination of Perforomist and Pulmicort overestimates twice a day. Keep the patient put the patient IV Solu Medrol 60 every 6 hours. Continue DuoNeb about treatments around the clock. Keep same antibiotic coverage. Proceed with bronchoscopy and was suctioning and bronchioloalveolar lavage. We'll continue to follow make further recommendations based on her overall progress and findings on the bronchoscopy.
--- NOTE | 2016-10-22 14:35 | P.PCN ---
Date of Procedure: 10/22/16 Preoperative Diagnosis: Bilateral pneumonia, more so affecting the right lower lobe Postoperative Diagnosis: Pneumonia with copious purulent respiratory secretions and mucous plugs scattered throughout the patient's airway addition to findings of diffuse tracheobronchitis. Procedure(s) Performed: Implants: Anesthesia: MAC Surgeon: Lamine Hull Estimated Blood Loss (ml): 0 Pathology: other Condition: stable Disposition: floor Indications for Procedure: dyspnea/ pneumonia Operative Findings: This procedure was done under conscious sedation. Anesthetic ages was administered by SAND MIXER OPERATOR the bedside. The patient was given Diprivan. After achieving adequate sedation flexible bronchoscope was inserted to the right nostril with breast upper airway. Examination of the posterior oropharynx, larynx, epiglottis, vocal cords, arytenoids was done and all of this upper airway structures were within normal limits. A total of 2 mL of 1% lidocaine was applied to the vocal cords and following the bronchoscope was advanced upper trachea. Examination of the tracheal bronchial tree was done. Immediately, copious amount of purulent respiratory secretions at a different end up in the mid trachea. These secretions were very thick and purulent and there were causing significant obstruction of the patient's trachea. Therapy care was suctioning was done. Thesecretions were irrigated with fluid and following that there was suctioned out without any major difficulties. As the bronchoscope was being advanced to the lower trachea, more respiratory secretions were encountered in the bilateral mainstem bronchi into more extent in the right lower lobe. Further irrigation was sitting was done and therapeutic it was suctioning was performed to achieve adequate patency of the airway. Airway inspection was completed. Underlying bronchial mucosa and the tracheal mucosa was quite inflamed and erythematous and friable. Nevertheless, despite all this, there was no foreign bodies or endobronchial tumors identified. The visualized airways into the trachea, bilateral mainstem bronchi , right upper lobe bronchus, bronchus intermedius, right middle lobe bronchus, right lower lobe bronchus, left upper lobe bronchus and left lower lobe bronchus. At the end of the procedure, bronchial lavage (BAL) of the right lower lobe was done. A total of 60 cc of fluid was infused with around 20 cc's was suctioned back. Addendum of the procedure, no significant residual secretions were left and the flexible bronchoscope was removed and the patient was transferred recovery in stable condition. The sample was sent for microbial cultures and analysis. The procedure was done without any complications. The patient will be transferred back to her room. Description of Procedure:
[2016-10-22] MEDS: HYDROcodone/APAP 10-325MG 1 EACH TAB PO PRN ×2 (15:09→23:14)
[2016-10-22] MEDS: AZITHROMYCIN 500 MG TAB PO SCH (15:09)
[2016-10-22] MEDS: CHLORPHEN-HYDROcod 8-10mg/5ml 5 ML ORAL.SYRG PO SCH (15:19)
[2016-10-22] MEDS: ALPRAZolam 0.5 MG TAB PO PRN (15:21)
[2016-10-22 17:17] LABS: Glucose,Whole Blood 134 mg/dL (75-99)
[2016-10-22 17:44] LABS: RBC, Body Fluid 20400 /uL
--- NOTE | 2016-10-22 18:16 | P.PN ---
Subjective Date of service 10/22/2016. Progress note being dictated for Dr. Obie Drake history: This is a 55-year-old female admitted with sepsis, pneumonia, acute hypercapnic and hypoxic respiratory failure secondary to his acute COPD exacerbation, and multiple other medical issues. Continues to slowly improve on nebulized bronchodilators, Solu-Medrol,,Rocephin, Zithromax.Bronchoscopy pending-scheduled for today. Afebrile. Review of systems: HEENT: Denies headache or focal deficits. Denies any dizziness or lightheadedness. Respiratory: Complains of increased shortness of breath with minimal exertion. Cardiac: Denies any chest pain, palpitations. GI: Denies any nausea, vomiting, or diarrhea. Denies any abdominal tenderness. : Denies any dysuria. Denies frequency or urgency Psychiatry: States anxiety and feeling down in regards to slow improvement. Active Medications Generic Name Dose Route Start Last Admin Trade Name Freq PRN Reason Stop Dose Admin Acetaminophen 650 mg 10/15/16 12:01 10/17/16 02:42 Tylenol Tab PO 650 mg Q6HR PRN Administration Mild Pain or Fever > 100.5 Hydrocodone Bitart/Acetaminophen 1 each 10/15/16 12:43 10/22/16 15:09 [place] 10 PO 1 each BID PRN Administration Moderate Pain Albuterol/Ipratropium 3 ml 10/15/16 16:00 10/22/16 14:55 Duoneb 0.5 Mg-3 Mg/3 Ml Soln INHALATION 3 ml RT-QID JOSE Administration Albuterol/Ipratropium 3 ml 10/15/16 14:30 10/21/16 03:18 Duoneb 0.5 Mg-3 Mg/3 Ml Soln INHALATION 3 ml RT-Q2H PRN Administration Shortness Of Breath Or Wheezing Alprazolam 0.5 mg 10/17/16 22:44 10/22/16 15:21 Xanax PO 0.5 mg BID PRN Administration Anxiety Azithromycin 500 mg 10/15/16 15:15 10/22/16 15:09 Zithromax PO 500 mg DAILY JOSE Administration Benzocaine/Menthol 1 each 10/16/16 01:02 10/17/16 02:46 Cepacol Lozenge MUCOUS MEM 1 each Q4HR PRN Administration cough Budesonide 0.5 mg 10/20/16 20:00 10/22/16 08:19 Pulmicort INHALATION 0.5 mg RT-BID JOSE Administration Chlorphenir/Hydrocodone Polistirex 5 ml 10/22/16 16:00 10/22/16 15:19 Tussionex PO 5 ml Q12H JOSE Administration Formoterol Fumarate 20 mcg 10/20/16 20:00 10/22/16 08:19 Perforomist INHALATION 20 mcg RT-BID JOSE Administration Guaifenesin 1,200 mg 10/16/16 13:15 10/22/16 09:17 Mucinex PO Not Given Q12HR JOSE Guaifenesin/Dextromethorphan 10 ml 10/17/16 12:59 10/18/16 19:35 Robitussin Dm PO 10 ml Q6H PRN Administration Cough Sodium Chloride 1,000 mls @ 100 mls/hr 10/15/16 12:15 10/22/16 15:22 Saline 0.9% IV 100 mls/hr .Q10H JOSE Administration Ceftriaxone Sodium 1,000 mg/ 50 mls @ 100 mls/hr 10/15/16 15:15 10/22/16 09: 14 Sodium Chloride IVPB 100 mls/hr Q24HR JOSE Administration Ibuprofen 600 mg 10/17/16 07:05 10/17/16 07:27 Motrin PO 600 mg QID PRN Administration Fever and/ or Pain Insulin Human Lispro 0 unit 10/20/16 17:30 10/22/16 12:07 Humalog SQ Not Given ACHS [facility] Protocol Methylprednisolone Sodium Succinate 60 mg 10/20/16 18:00 10/22/16 13:01 Solu-Medrol IV 60 mg Q6HR JOSE Administration Miscellaneous Information 1 each 10/15/16 20:02 Potassium Per Protocol MISCELLANE DAILY PRN Per Protocol Protocol Miscellaneous Information 1 each 10/16/16 11:24 Magnesium Per Protocol MISCELLANE DAILY PRN Per Protocol Protocol Miscellaneous Information 1 each 10/21/16 13:42 Rx Info: Iv Contrast Was Given MISCELLANE 10/23/16 13:42 DAILY PRN Per Protocol Morphine Sulfate 4 mg 10/15/16 12:01 10/22/16 06:18 Morphine Sulfate (Inj) IV 4 mg Q4HR PRN Administration Severe Pain Naloxone HCl 0.2 mg 10/15/16 12:01 Narcan IV Q2M PRN Opioid Reversal Ondansetron HCl 4 mg 10/15/16 14:38 Zofran IVP Q6HR PRN Nausea And Vomiting Pantoprazole Sodium 40 mg 10/15/16 15:15 10/22/16 09:16 Protonix PO Not Given AC-BRKFST [facility] Zolpidem Tartrate 10 mg 10/18/16 13:03 Ambien PO HS PRN Insomnia Objective - Vital Signs Vital signs: Vital Signs Temp 96.4 F L 10/22/16 07:00 Pulse 101 H 10/22/16 08:40 Resp 16 10/22/16 07:00 BP 158/78 10/22/16 07:00 Pulse Ox 92 L 10/22/16 07:00 Intake & Output 10/21/16 10/22/16 10/22/16 18:59 06:59 18:59 Intake Total 100 Balance 100 Weight 74.843 kg Intake: Oral 100 Other: # Voids 1 3 1 - Exam PHYSICAL EXAM: VITAL SIGNS: [As above] GENERAL: [Sitting up in bed, no acute distress] HEENT: [Pupils equal conjunctiva normal. Facial rosacea] NECK: [Supple, no JVD] RESPIRATORY EFFORT:[ Increased] LUNGS: diminished with bilateral expiratory wheeze[] CARDIOVASCULAR[ regular S1 and S2 with no murmurs rubs or gallops, no edema] GI: [Abdomen soft, nontender, positive bowel sounds. PSYCH: [Alert and oriented -3, mood and affect anxious] NEURO: Gross neurological examination did not reveal any focal deficits - Labs CBC & Chem 7: 10/22/16 07:03 10/22/16 07:03 Labs: Abnormal Lab Results - Last 24 Hours (Table) 10/21/16 10/21/16 10/21/16 Range/Units 11:29 16:57 21:24 RBC (3.80-5.40) m/uL Lymphocytes # (1.0-4.8) k/uL Carbon Dioxide (22-30) mmol/L Creatinine (0.52-1.04) mg/dL Glucose (74-99) mg/dL POC Glucose (mg/dL) 146 H 127 H 144 H (75-99) mg/dL Calcium (8.4-10.2) mg/dL 10/22/16 10/22/16 10/22/16 Range/Units 07:03 07:03 07:28 RBC 3.71 L (3.80-5.40) m/uL Lymphocytes # 0.9 L (1.0-4.8) k/uL Carbon Dioxide 32 H (22-30) mmol/L Creatinine 0.46 L (0.52-1.04) mg/dL Glucose 117 H (74-99) mg/dL POC Glucose (mg/dL) 113 H (75-99) mg/dL Calcium 8.1 L (8.4-10.2) mg/dL Microbiology - Last 24 Hours (Table) 10/15/16 09:30 Blood Culture - Final Blood No Growth after 144 hours Assessment and Plan Plan: 1. [ Sepsis secondary to acute right lung pneumonia]. 2. [ Acute COPD exacerbation secondary to the above]. 3. [ Acute hypercapnic and hypoxic respiratory failure secondary to the above]. 4. [ Hypovolemic Hyponatremia, resolved]. 5. [ Hypokalemia]. 6. [ Ongoing nicotine abuse]. 7. [ Anxiety]. 8. Chronic pain 9. Hypertension Plan: Continue on current medication regime, nebulized bronchodilators, steroids , antibiotics, antidepressant, monitoring and symptomatic treatment. Bronchoscopy pending . Follow closely with pulmonary. Further recommendations to follow. The impression and plan of care has been dictated as directed. : I performed a H&P examination of this patient and discussed the same with the dictator. I agree with the dictator's note. Any additional findings/opinions/ etc. will be noted.
[2016-10-22 21:26] LABS: Glucose,Whole Blood 219 mg/dL (75-99)
--- NOTE | 2016-10-23 05:53 | PN ---
DATE OF SERVICE: 10/22/2016 This 55-year-old woman who was admitted with COPD acute exacerbation as well as pneumonia also had features of sepsis. Seen and evaluated the patient along with the nurse practitioner. Please refer to nurse practitioner notes and impression documented for further information. Dr. Hull is planning bronchoscopy today. Further recommendations to follow.
[2016-10-23] MEDS: CHLORPHEN-HYDROcod 8-10mg/5ml 5 ML ORAL.SYRG PO SCH ×2 (06:07→18:10)
[2016-10-23] MEDS: methylPREDNISolone SOD SUCCI 125 MG/2 ML VIAL IV SCH ×4 (06:07→23:46)
[2016-10-23] MEDS: AZITHROMYCIN 500 MG TAB PO SCH (07:39)
[2016-10-23] MEDS: guaiFENesin 600 MG TABLET.ER PO SCH ×2 (07:39→21:24)
[2016-10-23] MEDS: PANTOPRAZOLE 40 MG TABLET PO SCH (07:39)
[2016-10-23] MEDS: INSULIN LISPRO (humaLOG) 300 UNIT/3 ML VIAL SQ SCH ×4 (07:44→21:24)
[2016-10-23 07:51] LABS: Glucose,Whole Blood 228 mg/dL (75-99)
[2016-10-23] MEDS: HYDROcodone/APAP 10-325MG 1 EACH TAB PO PRN ×2 (07:53→21:27)
[2016-10-23 08:16] LABS: Basophils % (A) 0 %; CH 33.7; CHCM 34.7; Eosinophils % (A) 0 %; HCT 38.3 % (34.0-46.0); HDW 2.65; HGB 13.3 gm/dL (11.4-16.0); Luc # (Auto) 0.11; Luc % (Auto) 1; Lymphocytes # (A) 0.7 k/uL (1.0-4.8); Lymphocytes % (A) 8 %; MCH 33.9 pg (25.0-35.0); MCHC 34.8 g/dL (31.0-37.0); MCV 97.6 fL (80.0-100.0); Mean Platelet Volume 6.9; Monocytes # (A) 0.3 k/uL (0-1.0); Monocytes % (A) 3 %; Neutrophils # (A) 7.9 k/uL (1.3-7.7); Neutrophils % (A) 87 %; RBC 3.93 m/uL (3.80-5.40); WBC 9.1 k/uL (3.8-10.6); WBC (Perox) 9.75
[2016-10-23 08:32] LABS: Anion Gap 14 mmol/L; Blood Urea Nitrogen 14 mg/dL (7-17); Calcium 8.2 mg/dL (8.4-10.2); Carbon Dioxide 27 mmol/L (22-30); Chloride 99 mmol/L (98-107); Glucose 196 mg/dL (74-99); Non-African American GFR(MDRD) >60 (>60 ml/min/1.73 sqM); Potassium 3.3 mmol/L (3.5-5.1); Sodium 140 mmol/L (137-145)
[2016-10-23] MEDS: FORMOTEROL FUMARATE 20 MCG/2 ML NEBU INHALATION SCH ×2 (08:40→19:45)
[2016-10-23] MEDS: BUDESONIDE 0.5 MG/2 ML NEBU INHALATION SCH ×2 (08:40→19:45)
[2016-10-23] MEDS: IPRATROPIUM-ALBUTEROL 3 ML NEB INHALATION SCH ×4 (08:40→19:45)
[2016-10-23 11:56] LABS: Glucose,Whole Blood 111 mg/dL (75-99)
[2016-10-23] MEDS: SODIUM CHLORIDE 0.9% 1,000 ML IV SCH ×2 (12:39→21:24)
--- NOTE | 2016-10-23 16:59 | P.PN ---
Subjective This is a 55-year-old female patient with known history of COPD who presented to the hospital because of a right lung pneumonia. The patient also known to have hypertension and chronic pain syndrome. Over the past 2 days the patient was being treated with a combination of bronchodilators, systemic steroids and antibiotics. She is not seeing much of an improvement and she remains short of breath. She feels her lungs are still squeezing and she gets short of breath with limited amount of activity. No fever. No chills. No hemoptysis. No pleurisy. She is a chronic smoker. The patient is seen again today 10/21/2016 in follow-up on the regular medical floor. She is awake and alert in no acute distress. Unfortunately the patient has been slow to progress. She continues with a loose nonproductive cough. Dyspnea on exertion. Wheezing. She has been maintained on bronchodilators, Perforomist and budesonide inhalations, steroids, Mucinex, Robitussin, ceftriaxone and azithromycin. All without much improvement. On 10/22/2016, the patient is essentially the same. Denies having any lifting improvement with few days of treatment with antibiotics and systemic steroids. The patient on a combination of Rocephin and Zithromax. The patient on IV Solu- Medrol. The patient is on a combination of Perforomist and does not about treatments. The patient is also on DuoNeb about treatments around the clock. Despite that, she is feeling that everything is quite restricted. She is unable to cough up any respiratory secretions. She is short of breath with limited amount of activity. Based on all this, a CAT scan of the chest was done that showed patchy reticulonodular infiltrates in the left upper lobe and in the right lower lobe related to an underlying pneumonia. There is also an underlying mild pulmonary emphysema. The plan is to proceed with a bronchoscopy and therapeutic it was suctioning and bronchioloalveolar lavage today. On 10/23/2016 the patient is feeling slightly better compared to yesterday. The patient is less short of breath. The patient underwent a bronchoscopy and therapeutic airway suctioning suctioning with copious amount of purulent respiratory secretions were aspirated from the patient's lungs. The cultures are still pending for now. The patient meanwhile has had modest improvement following the procedure. She still requiring oxygen to maintain a saturation above 90%. She desaturates very easily. She gets short of breath with amount of activity. She remains spastic and wheezy. She still in accommodation Rocephin and Zithromax. She is taking Tussionex for cough and her cough has subsided. She is afebrile. She is on a combination of Pulmicort and budesonide overestimates twice a day and DuoNeb neb last treatment 4 times a day. No thrush. Objective - Vital Signs Vital signs: Vital Signs Temp 97.4 F L 10/23/16 15:00 Pulse 74 10/23/16 15:36 Resp 16 10/23/16 16:00 BP 162/78 10/23/16 15:00 Pulse Ox 93 L 10/23/16 15:00 Intake & Output 10/22/16 10/23/16 10/23/16 18:59 06:59 18:59 Intake Total 200 1200 Balance 200 1200 Intake: IV 200 Oral 1200 Other: # Voids 2 1 3 - Exam The patient appeared well nourished and normally developed. Vital signs as documented. Head exam is unremarkable. No scleral icterus or corneal arcus noted. Neck is without jugular venous distension, thyromegaly, or carotid bruits. Carotid upstrokes are brisk bilaterally. Lung sounds are diminished bilaterally and there is prolongation of the expiratory phase of breathing and scattered expiratory wheezes throughout the lung joe.. Cardiac exam reveals the PMI to be normally sized and situated. Rhythm is regular. First and second heart sounds normal. No murmurs, rubs or gallops. Abdominal exam reveals normal bowel sounds, no masses, no organomegaly and no aortic enlargement. Extremities are nonedematous and both femoral and pedal pulses are normal. - Labs CBC & Chem 7: 10/23/16 08:04 10/23/16 08:04 Labs: Abnormal Lab Results - Last 24 Hours (Table) 10/22/16 10/22/16 10/22/16 Range/Units 14:25 17:02 21:21 Plt Count (150-450) k/uL Neutrophils # (1.3-7.7) k/uL Lymphocytes # (1.0-4.8) k/uL Potassium (3.5-5.1) mmol/L Creatinine (0.52-1.04) mg/dL Glucose (74-99) mg/dL POC Glucose (mg/dL) 134 H 219 H (75-99) mg/dL Calcium (8.4-10.2) mg/dL Viral Test See Below H 10/23/16 10/23/16 10/23/16 Range/Units 07:43 08:04 08:04 Plt Count 451 H (150-450) k/uL Neutrophils # 7.9 H (1.3-7.7) k/uL Lymphocytes # 0.7 L (1.0-4.8) k/uL Potassium 3.3 L (3.5-5.1) mmol/L Creatinine 0.46 L (0.52-1.04) mg/dL Glucose 196 H (74-99) mg/dL POC Glucose (mg/dL) 228 H (75-99) mg/dL Calcium 8.2 L (8.4-10.2) mg/dL Viral Test 10/23/16 Range/Units 11:52 Plt Count (150-450) k/uL Neutrophils # (1.3-7.7) k/uL Lymphocytes # (1.0-4.8) k/uL Potassium (3.5-5.1) mmol/L Creatinine (0.52-1.04) mg/dL Glucose (74-99) mg/dL POC Glucose (mg/dL) 111 H (75-99) mg/dL Calcium (8.4-10.2) mg/dL Viral Test Microbiology - Last 24 Hours (Table) 10/22/16 14:25 Gram Stain - Preliminary Bronchial Washings - Left Bronchial Washings Culture - Preliminary 10/22/16 14:25 Acid Fast Bacilli Culture - Preliminary Bronchial Washings - Left 10/22/16 14:25 Fungal Culture - Preliminary Bronchial Washings - Left Assessment and Plan Plan: Assessment 1 Right lung pneumonia. The CAT scan of the chest was reviewed. There is a patchy left ago another infiltrate in the left upper lobe and the right lower lobe. The patient has had no significant improvement over the past few days and the patient had a bronchoscopy yesterday with therapeutic airway suctioning and the results of the cultures still pending for now. There has been some modest improvement in her condition since the bronchoscopy. 2 acute COPD exacerbation secondary to right lung pneumonia 3 nicotine addiction 4 hypertension 5 chronic pain 6 anxiety Plan Continue the combination of Perforomist and Pulmicort overestimates twice a day. Keep the patient put the patient IV Solu Medrol 60 every 6 hours. Continue DuoNeb about treatments around the clock. Keep same antibiotic coverage. The bronchoscopy was completed. Awaiting the final cultures and sensitivities. Meanwhile we'll continue same treatment. Encourage further ambulation. We'll continue to follow make further recommendations based on her progress.
[2016-10-23 17:16] LABS: Glucose,Whole Blood 137 mg/dL (75-99)
[2016-10-23 21:23] LABS: Glucose,Whole Blood 136 mg/dL (75-99)
[2016-10-24] MEDS: CHLORPHEN-HYDROcod 8-10mg/5ml 5 ML ORAL.SYRG PO SCH ×3 (06:17→21:39)
[2016-10-24] MEDS: methylPREDNISolone SOD SUCCI 125 MG/2 ML VIAL IV SCH (06:17)
[2016-10-24] MEDS: SODIUM CHLORIDE 0.9% 1,000 ML IV SCH ×2 (06:18→16:16)
[2016-10-24 07:48] LABS: Glucose,Whole Blood 115 mg/dL (75-99)
[2016-10-24] MEDS: INSULIN LISPRO (humaLOG) 300 UNIT/3 ML VIAL SQ SCH ×4 (07:59→21:33)
[2016-10-24] MEDS: BUDESONIDE 0.5 MG/2 ML NEBU INHALATION SCH ×2 (08:35→19:52)
[2016-10-24] MEDS: FORMOTEROL FUMARATE 20 MCG/2 ML NEBU INHALATION SCH ×2 (08:35→19:52)
[2016-10-24] MEDS: IPRATROPIUM-ALBUTEROL 3 ML NEB INHALATION SCH ×4 (08:36→19:53)
--- NOTE | 2016-10-24 09:04 | P.PN ---
Subjective Date of service 10/23/2016. Progress note being dictated for Dr. Ragland Interval history: This is a 55-year-old female admitted with sepsis, pneumonia, acute hypercapnic and hypoxic respiratory failure secondary to his acute COPD exacerbation, and multiple other medical issues. Underwent bronchoscopy yesterday, tolerated procedure well procedure reported pneumonia with copious amounts of purulent secretions, mucous plugs scattered throughout with diffuse tracheobronchitis. Cultures pending. Significant improvement. Retaining O2 sats of 93% on 2 L nasal cannula. Potassium 3.3, receiving supplements per replacement protocol. Afebrile. Objective - Vital Signs Vital signs: Vital Signs Temp 97.4 F L 10/23/16 15:00 Pulse 74 10/23/16 15:36 Resp 16 10/23/16 16:00 BP 162/78 10/23/16 15:00 Pulse Ox 93 L 10/23/16 15:00 Intake & Output 10/22/16 10/23/16 10/23/16 18:59 06:59 18:59 Intake Total 200 1200 Balance 200 1200 Intake: IV 200 Oral 1200 Other: # Voids 2 1 3 - Exam PHYSICAL EXAM: VITAL SIGNS: [As above] GENERAL: [Sitting up in bed, no acute distress] HEENT: [Pupils equal conjunctiva normal. Facial rosacea] NECK: [Supple, no JVD] RESPIRATORY EFFORT:[ Increased] LUNGS: Better air entry, diminished with improved bilateral expiratory wheeze[] CARDIOVASCULAR[ regular S1 and S2 with no murmurs rubs or gallops, no edema] GI: [Abdomen soft, nontender, positive bowel sounds. PSYCH: [Alert and oriented -3, mood and affect anxious] NEURO: Gross neurological examination did not reveal any focal deficits - Labs CBC & Chem 7: 10/23/16 08:04 10/23/16 08:04 Labs: Abnormal Lab Results - Last 24 Hours (Table) 10/22/16 10/22/16 10/23/16 Range/Units 14:25 21:21 07:43 Plt Count (150-450) k/uL Neutrophils # (1.3-7.7) k/uL Lymphocytes # (1.0-4.8) k/uL Potassium (3.5-5.1) mmol/L Creatinine (0.52-1.04) mg/dL Glucose (74-99) mg/dL POC Glucose (mg/dL) 219 H 228 H (75-99) mg/dL Calcium (8.4-10.2) mg/dL Viral Test See Below H 10/23/16 10/23/16 10/23/16 Range/Units 08:04 08:04 11:52 Plt Count 451 H (150-450) k/uL Neutrophils # 7.9 H (1.3-7.7) k/uL Lymphocytes # 0.7 L (1.0-4.8) k/uL Potassium 3.3 L (3.5-5.1) mmol/L Creatinine 0.46 L (0.52-1.04) mg/dL Glucose 196 H (74-99) mg/dL POC Glucose (mg/dL) 111 H (75-99) mg/dL Calcium 8.2 L (8.4-10.2) mg/dL Viral Test 10/23/16 Range/Units 17:14 Plt Count (150-450) k/uL Neutrophils # (1.3-7.7) k/uL Lymphocytes # (1.0-4.8) k/uL Potassium (3.5-5.1) mmol/L Creatinine (0.52-1.04) mg/dL Glucose (74-99) mg/dL POC Glucose (mg/dL) 137 H (75-99) mg/dL Calcium (8.4-10.2) mg/dL Viral Test Microbiology - Last 24 Hours (Table) 10/22/16 14:25 Gram Stain - Preliminary Bronchial Washings - Left Bronchial Washings Culture - Preliminary 10/22/16 14:25 Acid Fast Bacilli Culture - Preliminary Bronchial Washings - Left 10/22/16 14:25 Fungal Culture - Preliminary Bronchial Washings - Left Assessment and Plan Plan: 1. [ Sepsis secondary to acute right lung pneumonia with purulent tracheobronchitis]. Status post bronchoscopy. 2. [ Acute COPD exacerbation secondary to the above]. 3. [ Acute hypercapnic and hypoxic respiratory failure secondary to the above]. 4. [ Hypovolemic Hyponatremia, resolved]. 5. [ Hypokalemia, on replacement protocol]. 6. [ Ongoing nicotine abuse]. 7. [ Anxiety]. 8. Chronic pain 9. Hypertension Plan: Continue on current medication regime, ATC nebulized bronchodilators, steroids, antibiotics, antidepressant, monitoring and symptomatic treatment. Status post bronchoscopy with cultures pending. Continues on IV steroids as per pulmonary. Close monitoring of I's with repeat labs ordered for a.m. Further recommendations to follow. The impression and plan of care has been dictated as directed. : I performed a H&P examination of this patient and discussed the same with the dictator. I agree with the dictator's note. Any additional findings/opinions/ etc. will be noted.
[2016-10-24] MEDS: PANTOPRAZOLE 40 MG TABLET PO SCH (09:12)
[2016-10-24] MEDS: AZITHROMYCIN 500 MG TAB PO SCH (09:12)
[2016-10-24] MEDS: guaiFENesin 600 MG TABLET.ER PO SCH ×2 (09:13→21:41)
[2016-10-24] MEDS: HYDROcodone/APAP 10-325MG 1 EACH TAB PO PRN ×2 (09:13→21:40)
[2016-10-24 09:16] LABS: Basophils % (A) 0 %; CH 33.6; CHCM 34.5; Eosinophils # (A) 0.1 k/uL (0-0.7); Eosinophils % (A) 1 %; HCT 38.8 % (34.0-46.0); HGB 13.2 gm/dL (11.4-16.0); Immature Gran Flag Moderate; Luc # (Auto) 0.11; Luc % (Auto) 1; Lymphocytes # (A) 0.8 k/uL (1.0-4.8); Lymphocytes % (A) 7 %; MCH 33.4 pg (25.0-35.0); MCHC 34.1 g/dL (31.0-37.0); MCV 97.9 fL (80.0-100.0); Mean Platelet Volume 6.8; Monocytes # (A) 0.2 k/uL (0-1.0); Monocytes % (A) 2 %; Neutrophils # (A) 9.7 k/uL (1.3-7.7); Neutrophils % (A) 89 %; RBC 3.96 m/uL (3.80-5.40); WBC 10.9 k/uL (3.8-10.6); WBC (Perox) 11.31
[2016-10-24 09:44] LABS: Anion Gap 13 mmol/L; Blood Urea Nitrogen 13 mg/dL (7-17); Calcium 8.5 mg/dL (8.4-10.2); Carbon Dioxide 26 mmol/L (22-30); Chloride 99 mmol/L (98-107); Glucose 186 mg/dL (74-99); Non-African American GFR(MDRD) >60 (>60 ml/min/1.73 sqM); Potassium 3.5 mmol/L (3.5-5.1); Sodium 138 mmol/L (137-145)
[2016-10-24] MEDS ORDERED: FUROSEMIDE 10 MG/ML 2 ML VIAL IV ONE (10:35)
[2016-10-24 11:10] LABS: Manual Review Performed
[2016-10-24 11:11] LABS: RBC Morphology Normal
--- NOTE | 2016-10-24 11:37 | PN ---
DATE OF SERVICE: 10/23/2016 This 55-year-old woman was admitted with sepsis secondary to acute right lung pneumonia, is being closely monitored. The patient had bronchoscopy yesterday with significant mucus plugging. Seen by the nurse practitioner. Please refer to the nurse practitioner notes and impressions document as ascribed. Patient has guarded prognosis. Further recommendations to follow.
[2016-10-24 11:53] LABS: Glucose,Whole Blood 107 mg/dL (75-99)
--- NOTE | 2016-10-24 13:50 | P.PN ---
Subjective This is a 55-year-old female patient with known history of COPD who presented to the hospital because of a right lung pneumonia. The patient also known to have hypertension and chronic pain syndrome. Over the past 2 days the patient was being treated with a combination of bronchodilators, systemic steroids and antibiotics. She is not seeing much of an improvement and she remains short of breath. She feels her lungs are still squeezing and she gets short of breath with limited amount of activity. No fever. No chills. No hemoptysis. No pleurisy. She is a chronic smoker. The patient is seen again today 10/21/2016 in follow-up on the regular medical floor. She is awake and alert in no acute distress. Unfortunately the patient has been slow to progress. She continues with a loose nonproductive cough. Dyspnea on exertion. Wheezing. She has been maintained on bronchodilators, Perforomist and budesonide inhalations, steroids, Mucinex, Robitussin, ceftriaxone and azithromycin. All without much improvement. On 10/22/2016, the patient is essentially the same. Denies having any lifting improvement with few days of treatment with antibiotics and systemic steroids. The patient on a combination of Rocephin and Zithromax. The patient on IV Solu- Medrol. The patient is on a combination of Perforomist and does not about treatments. The patient is also on DuoNeb about treatments around the clock. Despite that, she is feeling that everything is quite restricted. She is unable to cough up any respiratory secretions. She is short of breath with limited amount of activity. Based on all this, a CAT scan of the chest was done that showed patchy reticulonodular infiltrates in the left upper lobe and in the right lower lobe related to an underlying pneumonia. There is also an underlying mild pulmonary emphysema. The plan is to proceed with a bronchoscopy and therapeutic it was suctioning and bronchioloalveolar lavage today. On 10/23/2016 the patient is feeling slightly better compared to yesterday. The patient is less short of breath. The patient underwent a bronchoscopy and therapeutic airway suctioning suctioning with copious amount of purulent respiratory secretions were aspirated from the patient's lungs. The cultures are still pending for now. The patient meanwhile has had modest improvement following the procedure. She still requiring oxygen to maintain a saturation above 90%. She desaturates very easily. She gets short of breath with amount of activity. She remains spastic and wheezy. She still in accommodation Rocephin and Zithromax. She is taking Tussionex for cough and her cough has subsided. She is afebrile. She is on a combination of Pulmicort and budesonide overestimates twice a day and DuoNeb neb last treatment 4 times a day. No thrush. 10/24/2016 the patient is doing much better. I checked her pulse ox on room air is around 91-92%. She has developed some oropharyngeal thrush. The bronchioloalveolar lavage is been negative for any microbial growth. The patient will be given Diflucan regarding her thrush. The patient will be asked to increase his level of activity as tolerated. She is on Tussionex for cough suppression. She is also on a combination of Pulmicort and Perforomist neb last 2 minutes twice a day and DuoNeb nebulized treatments 4 times a day. Antibiotics have essentially unchanged. The microbial cultures and shouldn't are negative. Meanwhile, the patient is gradually improving and she is been trying to ambulate more so in the room and in the hallway. The cough has subsided. The chest wall was sore due to recurrent coughing although this is improved also. Objective - Vital Signs Vital signs: Vital Signs Temp 97.4 F L 10/24/16 07:00 Pulse 98 10/24/16 12:05 Resp 16 10/24/16 07:00 BP 170/98 10/24/16 07:00 Pulse Ox 96 10/24/16 08:37 Intake & Output 10/23/16 10/24/16 10/24/16 18:59 06:59 18:59 Intake Total 1200 750 600 Balance 1200 750 600 Intake: Oral 1200 750 600 Other: Voiding Method Toilet # Voids 3 2 2 - Exam The patient appeared well nourished and normally developed. Vital signs as documented. Head exam is unremarkable. No scleral icterus or corneal arcus noted. Neck is without jugular venous distension, thyromegaly, or carotid bruits. Carotid upstrokes are brisk bilaterally. Lung sounds are diminished bilaterally and there is prolongation of the expiratory phase of breathing and scattered expiratory wheezes throughout the lung joe.. Cardiac exam reveals the PMI to be normally sized and situated. Rhythm is regular. First and second heart sounds normal. No murmurs, rubs or gallops. Abdominal exam reveals normal bowel sounds, no masses, no organomegaly and no aortic enlargement. Extremities are nonedematous and both femoral and pedal pulses are normal. - Labs CBC & Chem 7: 10/24/16 08:36 10/24/16 08:36 Labs: Abnormal Lab Results - Last 24 Hours (Table) 10/22/16 10/23/16 10/23/16 Range/Units 14:25 17:14 21:19 WBC (3.8-10.6) k/uL Plt Count (150-450) k/uL Neutrophils # (1.3-7.7) k/uL Lymphocytes # (1.0-4.8) k/uL Creatinine (0.52-1.04) mg/dL Glucose (74-99) mg/dL POC Glucose (mg/dL) 137 H 136 H (75-99) mg/dL Viral Test See Below H 10/24/16 10/24/16 10/24/16 Range/Units 07:15 08:36 08:36 WBC 10.9 H (3.8-10.6) k/uL Plt Count 460 H (150-450) k/uL Neutrophils # 9.7 H (1.3-7.7) k/uL Lymphocytes # 0.8 L (1.0-4.8) k/uL Creatinine 0.47 L (0.52-1.04) mg/dL Glucose 186 H (74-99) mg/dL POC Glucose (mg/dL) 115 H (75-99) mg/dL Viral Test 10/24/16 Range/Units 11:49 WBC (3.8-10.6) k/uL Plt Count (150-450) k/uL Neutrophils # (1.3-7.7) k/uL Lymphocytes # (1.0-4.8) k/uL Creatinine (0.52-1.04) mg/dL Glucose (74-99) mg/dL POC Glucose (mg/dL) 107 H (75-99) mg/dL Viral Test Microbiology - Last 24 Hours (Table) 10/22/16 14:25 Acid Fast Bacilli Smear - Final Bronchial Washings - Left Acid Fast Bacilli Culture - Preliminary Assessment and Plan Plan: Assessment 1 Right lung pneumonia. The CAT scan of the chest was reviewed. There is a patchy left ago another infiltrate in the left upper lobe and the right lower lobe. The patient has had no significant improvement over the past few days and the patient had a bronchoscopy the results of the bronchioloalveolar lavage have shown no microbial growth thus far. Clinically patient is improving. Oxygenation is improved. Cough has subsided. 2 acute COPD exacerbation secondary to right lung pneumonia 3 nicotine addiction 4 hypertension 5 chronic pain 6 anxiety And oropharyngeal thrush Plan Continue the combination of Perforomist and Pulmicort overestimates twice a day. On the IV Solu-Medrol 40 mg every 6 hours. Add Diflucan 100 mg by mouth daily for the next 7 days. Check pulse ox with activity and arrange home O2 for this patient. Discharge planning is in progress. I think the patient may need an additional few days following that she will likely get discharged home to complete her outpatient treatment. She is slow to recover. All of the cultures from the bronchioloalveolar lavage has been negative thus far.
[2016-10-24 16:47] LABS: Glucose,Whole Blood 145 mg/dL (75-99)
--- NOTE | 2016-10-24 19:23 | P.PN ---
Subjective Date of service 10/24/2016. Progress note being dictated for Dr. Ragland Interval history: This is a 55-year-old female admitted with sepsis, pneumonia, acute hypercapnic and hypoxic respiratory failure secondary to his acute COPD exacerbation, status post bronchoscopy and multiple other medical issues. Breathing improved, no cough; significant clinical improvement. Maintaining O2 sats of 92% on room air.Cultures pending. Afebrile. Objective - Vital Signs Vital signs: Vital Signs Temp 96.1 F L 10/24/16 15:00 Pulse 96 10/24/16 15:17 Resp 18 10/24/16 16:14 BP 136/74 10/24/16 15:00 Pulse Ox 88 L 10/24/16 16:14 Intake & Output 10/24/16 10/24/16 10/25/16 06:59 18:59 06:59 Intake Total 750 1200 Balance 750 1200 Intake: Oral 750 1200 Other: Voiding Method Toilet # Voids 2 3 - Exam PHYSICAL EXAM: VITAL SIGNS: [As above] GENERAL: [Sitting up in bed, no acute distress] HEENT: [Pupils equal conjunctiva normal. Facial rosacea] NECK: [Supple, no JVD] RESPIRATORY EFFORT:[ Increased] LUNGS: Better air entry, diminished with improved scattered bilateral expiratory wheeze[] CARDIOVASCULAR[ regular S1 and S2 with no murmurs rubs or gallops, no edema] GI: [Abdomen soft, nontender, positive bowel sounds. PSYCH: [Alert and oriented -3, mood and affect normal NEURO: Gross neurological examination did not reveal any focal deficits - Labs CBC & Chem 7: 10/24/16 08:36 10/24/16 08:36 Labs: Abnormal Lab Results - Last 24 Hours (Table) 10/23/16 10/24/16 10/24/16 Range/Units 21:19 07:15 08:36 WBC 10.9 H (3.8-10.6) k/uL Plt Count 460 H (150-450) k/uL Neutrophils # 9.7 H (1.3-7.7) k/uL Lymphocytes # 0.8 L (1.0-4.8) k/uL Creatinine (0.52-1.04) mg/dL Glucose (74-99) mg/dL POC Glucose (mg/dL) 136 H 115 H (75-99) mg/dL 10/24/16 10/24/16 10/24/16 Range/Units 08:36 11:49 16:38 WBC (3.8-10.6) k/uL Plt Count (150-450) k/uL Neutrophils # (1.3-7.7) k/uL Lymphocytes # (1.0-4.8) k/uL Creatinine 0.47 L (0.52-1.04) mg/dL Glucose 186 H (74-99) mg/dL POC Glucose (mg/dL) 107 H 145 H (75-99) mg/dL Microbiology - Last 24 Hours (Table) 10/22/16 14:25 Acid Fast Bacilli Smear - Final Bronchial Washings - Left Acid Fast Bacilli Culture - Preliminary Assessment and Plan Plan: 1. [ Sepsis secondary to acute right lung pneumonia with purulent tracheobronchitis]. Status post bronchoscopy. 2. [ Acute COPD exacerbation secondary to the above]. 3. [ Acute hypercapnic and hypoxic respiratory failure secondary to the above]. 4. [ Hypovolemic Hyponatremia, resolved]. 5. [ Hypokalemia, on replacement protocol]. 6. [ Ongoing nicotine abuse]. 7. [ Anxiety]. 8. Chronic pain 9. Hypertension 10. Oralpharyngeal candidiasis Plan: Continue on current medication regime, ATC nebulized bronchodilators, steroids, antibiotics, Diflucan, antidepressant, monitoring and symptomatic treatment. Steroid tapering in progress as per pulmonary. Continue following bronchoscopy cultures closely. Increased ambulation as tolerated .discharge planning in progress pending pulmonary clearance .Further recommendations to follow. The impression and plan of care has been dictated as directed. : I performed a H&P examination of this patient and discussed the same with the dictator. I agree with the dictator's note. Any additional findings/opinions/ etc. will be noted.
[2016-10-24 21:06] LABS: Glucose,Whole Blood 120 mg/dL (75-99)
[2016-10-24] MEDS: methylPREDNISolone SOD SUCCI 40 MG/ML 1 ML VIAL IV SCH (21:40)
--- NOTE | 2016-10-24 22:58 | PN ---
DATE OF SERVICE: 10/24/2016 This 55-year-old woman who was admitted with sepsis and pneumonia is being closely monitored. The patient had bronchoscopy. Cultures are being . Seen and evaluated the patient along with the nurse practitioner. Please refer to the nurse practitioner's notes and impressions documented as a scribe for further information. Closely follow with Dr. Hull. Further recommendations to follow. MAXID
[2016-10-25] MEDS: SODIUM CHLORIDE 0.9% 1,000 ML IV SCH ×3 (02:24→21:32)
[2016-10-25 07:20] LABS: Glucose,Whole Blood 99 mg/dL (75-99)
[2016-10-25] MEDS: FORMOTEROL FUMARATE 20 MCG/2 ML NEBU INHALATION SCH ×2 (07:33→19:40)
[2016-10-25] MEDS: BUDESONIDE 0.5 MG/2 ML NEBU INHALATION SCH ×2 (07:33→19:40)
[2016-10-25] MEDS: IPRATROPIUM-ALBUTEROL 3 ML NEB INHALATION SCH ×4 (07:33→19:40)
[2016-10-25] MEDS: INSULIN LISPRO (humaLOG) 300 UNIT/3 ML VIAL SQ SCH ×4 (08:30→21:40)
[2016-10-25] MEDS: PANTOPRAZOLE 40 MG TABLET PO SCH (08:31)
[2016-10-25] MEDS: HYDROcodone/APAP 10-325MG 1 EACH TAB PO PRN ×2 (08:41→21:33)
[2016-10-25] MEDS: AZITHROMYCIN 500 MG TAB PO SCH (10:38)
[2016-10-25] MEDS: FLUCONAZOLE ORAL SUSP 1,400 MG/35 ML BOTTLE PO SCH (10:38)
[2016-10-25] MEDS: guaiFENesin 600 MG TABLET.ER PO SCH ×2 (10:38→21:31)
[2016-10-25] MEDS: methylPREDNISolone SOD SUCCI 40 MG/ML 1 ML VIAL IV SCH ×2 (10:39→21:30)
[2016-10-25] MEDS: CHLORPHEN-HYDROcod 8-10mg/5ml 5 ML ORAL.SYRG PO SCH ×2 (10:50→21:31)
[2016-10-25 11:39] LABS: Glucose,Whole Blood 73 mg/dL (75-99)
--- NOTE | 2016-10-25 14:04 | P.PN ---
Subjective Principal diagnosis: Right lung pneumonia This is a 55-year-old female patient with known history of COPD who presented to the hospital because of a right lung pneumonia. The patient also known to have hypertension and chronic pain syndrome. Over the past 2 days the patient was being treated with a combination of bronchodilators, systemic steroids and antibiotics. She is not seeing much of an improvement and she remains short of breath. She feels her lungs are still squeezing and she gets short of breath with limited amount of activity. No fever. No chills. No hemoptysis. No pleurisy. She is a chronic smoker. The patient is seen again today 10/21/2016 in follow-up on the regular medical floor. She is awake and alert in no acute distress. Unfortunately the patient has been slow to progress. She continues with a loose nonproductive cough. Dyspnea on exertion. Wheezing. She has been maintained on bronchodilators, Perforomist and budesonide inhalations, steroids, Mucinex, Robitussin, ceftriaxone and azithromycin. All without much improvement. On 10/22/2016, the patient is essentially the same. Denies having any lifting improvement with few days of treatment with antibiotics and systemic steroids. The patient on a combination of Rocephin and Zithromax. The patient on IV Solu- Medrol. The patient is on a combination of Perforomist and does not about treatments. The patient is also on DuoNeb about treatments around the clock. Despite that, she is feeling that everything is quite restricted. She is unable to cough up any respiratory secretions. She is short of breath with limited amount of activity. Based on all this, a CAT scan of the chest was done that showed patchy reticulonodular infiltrates in the left upper lobe and in the right lower lobe related to an underlying pneumonia. There is also an underlying mild pulmonary emphysema. The plan is to proceed with a bronchoscopy and therapeutic it was suctioning and bronchioloalveolar lavage today. On 10/23/2016 the patient is feeling slightly better compared to yesterday. The patient is less short of breath. The patient underwent a bronchoscopy and therapeutic airway suctioning suctioning with copious amount of purulent respiratory secretions were aspirated from the patient's lungs. The cultures are still pending for now. The patient meanwhile has had modest improvement following the procedure. She still requiring oxygen to maintain a saturation above 90%. She desaturates very easily. She gets short of breath with amount of activity. She remains spastic and wheezy. She still in accommodation Rocephin and Zithromax. She is taking Tussionex for cough and her cough has subsided. She is afebrile. She is on a combination of Pulmicort and budesonide overestimates twice a day and DuoNeb neb last treatment 4 times a day. No thrush. 10/24/2016 the patient is doing much better. I checked her pulse ox on room air is around 91-92%. She has developed some oropharyngeal thrush. The bronchioloalveolar lavage is been negative for any microbial growth. The patient will be given Diflucan regarding her thrush. The patient will be asked to increase his level of activity as tolerated. She is on Tussionex for cough suppression. She is also on a combination of Pulmicort and Perforomist neb last 2 minutes twice a day and DuoNeb nebulized treatments 4 times a day. Antibiotics have essentially unchanged. The microbial cultures and shouldn't are negative. Meanwhile, the patient is gradually improving and she is been trying to ambulate more so in the room and in the hallway. The cough has subsided. The chest wall was sore due to recurrent coughing although this is improved also. The patient is seen again today 10/25/2016 in follow-up on the regular medical floor. She is doing better overall. Her cough has subsided. She is maintaining O2 saturations in the 90s on 2 L/m per nasal cannula. She's been afebrile. Her bronchial wash culture is positive for aspergillus species. She states she does live in a basement apartment and suspects her quite a bit of mold there. Objective - Vital Signs Vital signs: Vital Signs Temp 97.5 F L 10/25/16 07:00 Pulse 90 10/25/16 12:00 Resp 16 10/25/16 07:00 BP 171/91 10/25/16 07:00 Pulse Ox 93 L 10/25/16 07:00 Intake & Output 10/24/16 10/25/16 10/25/16 18:59 06:59 18:59 Intake Total 1200 Balance 1200 Intake: Oral 1200 Other: # Voids 3 3 - Exam GENERAL EXAM: Alert, comfortable in no apparent distress. HEAD: Normocephalic. EYES: Normal reaction of pupils, equal size. NOSE: Clear with pink turbinates. THROAT: No erythema or exudates. NECK: No masses, no JVD. CHEST: No chest wall deformity. LUNGS: Equal air entry with bilateral end expiratory wheeze. Diminished. CVS: S1 and S2 normal with no audible mumurs, regular rhythm. ABDOMEN: No hepatosplenomegaly, normal bowel sounds, no guarding or rigidity. SPINE: No scoliosis or deformity SKIN: No rashes CENTRAL NERVOUS SYSTEM: No focal deficits, tone is normal in all 4 extremities. Extremities: There is no significant peripheral edema. No clubbing, no cyanosis. Peripheral pulses are intact. - Labs CBC & Chem 7: 10/24/16 08:36 10/24/16 08:36 Labs: Abnormal Lab Results - Last 24 Hours (Table) 10/24/16 10/24/16 10/25/16 Range/Units 16:38 20:48 11:37 POC Glucose (mg/dL) 145 H 120 H 73 L (75-99) mg/dL Microbiology - Last 24 Hours (Table) 10/22/16 14:25 Gram Stain - Preliminary Bronchial Washings - Left Bronchial Washings Culture - Preliminary Aspergillus species Assessment and Plan Plan: Assessment 1 Right lung pneumonia 2 acute COPD exacerbation secondary to right lung pneumonia 3 nicotine addiction 4 hypertension 5 chronic pain 6 anxiety Plan: The patient was seen and evaluated by Dr. Hull. Cultures were reviewed. We 'll obtained Aspergillus fumagatus IgE blood test. We'll continue with her current medications codeine bronchodilators, Pulmicort and Perforomist inhalations, Tussionex, Mucinex, Diflucan, IV Solu-Medrol. Plan for possible discharge in the next 24-48 hours. We'll continue to follow.
[2016-10-25 16:58] LABS: Glucose,Whole Blood 107 mg/dL (75-99)
[2016-10-25] MEDS: ATENOLOL 50 MG TAB PO SCH (21:31)
[2016-10-25] MEDS: CHLORTHALIDONE 25 MG TAB PO SCH (21:31)
[2016-10-25 21:39] LABS: Glucose,Whole Blood 126 mg/dL (75-99)
--- NOTE | 2016-10-26 07:21 | XR ---
EXAMINATION TYPE: XR chest 2V DATE OF EXAM: 10/26/2016 COMPARISON: Chest x-ray October 20, 2016. CT chest October 21, 2016. HISTORY: Pneumonia progress study, history of COPD. TECHNIQUE: Frontal and lateral views of the chest are obtained. FINDINGS: There is no new focal air space opacity, pleural effusion, or pneumothorax seen. Underlyin g emphysematous changes redemonstrated. Improved aeration posterior right lower lobe is present. The cardiac silhouette size is within normal limits. The osseous structures are intact. IMPRESSION: Resolved or resolving right lower lobe infiltrate, no new infiltrate is seen.
[2016-10-26 07:36] LABS: Glucose,Whole Blood 91 mg/dL (75-99)
[2016-10-26 07:57] VITALS: RESP 20
[2016-10-26] MEDS: FORMOTEROL FUMARATE 20 MCG/2 ML NEBU INHALATION SCH (08:03)
[2016-10-26] MEDS: BUDESONIDE 0.5 MG/2 ML NEBU INHALATION SCH (08:03)
[2016-10-26] MEDS: IPRATROPIUM-ALBUTEROL 3 ML NEB INHALATION SCH ×2 (08:03→11:56)
[2016-10-26] MEDS: CHLORTHALIDONE 25 MG TAB PO SCH (09:07)
[2016-10-26] MEDS: ATENOLOL 50 MG TAB PO SCH (09:07)
[2016-10-26] MEDS: methylPREDNISolone SOD SUCCI 40 MG/ML 1 ML VIAL IV SCH (09:07)
[2016-10-26] MEDS: PANTOPRAZOLE 40 MG TABLET PO SCH (09:07)
[2016-10-26] MEDS: INSULIN LISPRO (humaLOG) 300 UNIT/3 ML VIAL SQ SCH ×2 (09:07→12:11)
[2016-10-26] MEDS: guaiFENesin 600 MG TABLET.ER PO SCH (09:07)
[2016-10-26] MEDS: FLUCONAZOLE ORAL SUSP 1,400 MG/35 ML BOTTLE PO SCH (09:07)
[2016-10-26] MEDS: HYDROcodone/APAP 10-325MG 1 EACH TAB PO PRN (09:08)
[2016-10-26] MEDS: CHLORPHEN-HYDROcod 8-10mg/5ml 5 ML ORAL.SYRG PO SCH (09:08)
[2016-10-26] MEDS: SODIUM CHLORIDE 0.9% 1,000 ML IV SCH (09:09)
--- NOTE | 2016-10-26 09:42 | PN ---
DATE OF SERVICE: 10/25/2016 This 55-year-old woman was admitted with sepsis secondary to pneumonia, also had a bronchoscopy. No chest pain or palpitations. No fever. Dr. Hull is following the patient. The patient is on broad spectrum IV antibiotics. On exam, alert, oriented x3. Pulse 85, blood pressure 149, pulse 88, respirations 16, temperature 98.7, pulse ox 97% on 2 L. HEENT: Conjunctivae normal. Oral mucosa moist. NECK: Supple. No carotid bruits. CARDIOVASCULAR SYSTEM: S1, S2 muffled. RESPIRATORY: Lung sounds diminished at the bases. Few scattered rhonchi and crackles. Expiratory wheezing. ABDOMEN: Soft. BODY RECALL INSTRUCTOR: No focal deficits. LEGS: No edema. ABS: Accu-Cheks 73 AND 107. ASSESSMENT: 1. Sepsis secondary to right lower lobe pneumonia, possibly gram-negative, present on admission. 2. Status post bronchoscopy. 3. Chronic obstructive pulmonary disease, acute exacerbation. 4. Acute hypercapnic hypoxic respiratory failure, present on admission. 5. Hypovolemic hyponatremia, improved. 6. Hypokalemia, on replacement protocol. 7. History of nicotine dependence. 8. Anxiety, not otherwise specified. 9. Chronic pain syndrome. 10. Hypertension, essential. 11. Oral candidiasis. RECOMMENDATIONS/DISCUSSION: Recommend to continue current medications, continue symptomatic treatment and continue antibiotics and bronchodilators. Increase ambulation. Closely follow with Dr. Hull. Further recommendations to follow.
[2016-10-26 12:14] LABS: Glucose,Whole Blood 109 mg/dL (75-99)
--- NOTE | 2016-10-26 13:22 | P.PN ---
Subjective The patient also known to have hypertension and chronic pain syndrome. Over the past 2 days the patient was being treated with a combination of bronchodilators, systemic steroids and antibiotics. She is not seeing much of an improvement and she remains short of breath. She feels her lungs are still squeezing and she gets short of breath with limited amount of activity. No fever. No chills. No hemoptysis. No pleurisy. She is a chronic smoker. The patient is seen again today 10/21/2016 in follow-up on the regular medical floor. She is awake and alert in no acute distress. Unfortunately the patient has been slow to progress. She continues with a loose nonproductive cough. Dyspnea on exertion. Wheezing. She has been maintained on bronchodilators, Perforomist and budesonide inhalations, steroids, Mucinex, Robitussin, ceftriaxone and azithromycin. All without much improvement. On 10/22/2016, the patient is essentially the same. Denies having any lifting improvement with few days of treatment with antibiotics and systemic steroids. The patient on a combination of Rocephin and Zithromax. The patient on IV Solu- Medrol. The patient is on a combination of Perforomist and does not about treatments. The patient is also on DuoNeb about treatments around the clock. Despite that, she is feeling that everything is quite restricted. She is unable to cough up any respiratory secretions. She is short of breath with limited amount of activity. Based on all this, a CAT scan of the chest was done that showed patchy reticulonodular infiltrates in the left upper lobe and in the right lower lobe related to an underlying pneumonia. There is also an underlying mild pulmonary emphysema. The plan is to proceed with a bronchoscopy and therapeutic it was suctioning and bronchioloalveolar lavage today. On 10/23/2016 the patient is feeling slightly better compared to yesterday. The patient is less short of breath. The patient underwent a bronchoscopy and therapeutic airway suctioning suctioning with copious amount of purulent respiratory secretions were aspirated from the patient's lungs. The cultures are still pending for now. The patient meanwhile has had modest improvement following the procedure. She still requiring oxygen to maintain a saturation above 90%. She desaturates very easily. She gets short of breath with amount of activity. She remains spastic and wheezy. She still in accommodation Rocephin and Zithromax. She is taking Tussionex for cough and her cough has subsided. She is afebrile. She is on a combination of Pulmicort and budesonide overestimates twice a day and DuoNeb neb last treatment 4 times a day. No thrush. 10/24/2016 the patient is doing much better. I checked her pulse ox on room air is around 91-92%. She has developed some oropharyngeal thrush. The bronchioloalveolar lavage is been negative for any microbial growth. The patient will be given Diflucan regarding her thrush. The patient will be asked to increase his level of activity as tolerated. She is on Tussionex for cough suppression. She is also on a combination of Pulmicort and Perforomist neb last 2 minutes twice a day and DuoNeb nebulized treatments 4 times a day. Antibiotics have essentially unchanged. The microbial cultures and shouldn't are negative. Meanwhile, the patient is gradually improving and she is been trying to ambulate more so in the room and in the hallway. The cough has subsided. The chest wall was sore due to recurrent coughing although this is improved also. The patient is seen again today 10/25/2016 in follow-up on the regular medical floor. She is doing better overall. Her cough has subsided. She is maintaining O2 saturations in the 90s on 2 L/m per nasal cannula. She's been afebrile. Her bronchial wash culture is positive for aspergillus species. She states she does live in a basement apartment and suspects her quite a bit of mold there. On 10/26/2016, the patient is clinically much improved. She is maintaining her pulse ox above 90% with activity and during rest on room air. The chest x-ray from today shows clearing of the previously discussed bilateral pulmonary infiltrates. Meanwhile, the patient a bronchoscopy and the bronchioloalveolar lavage that showed aspergillus species which is probably a colonizer. The vital screen and her bronchioloalveolar lavage also showed adenovirus. She is living in a clotted basement and she could be exposed to molds. Serum precipitants for aspergillus fumigatus is ordered. Objective - Vital Signs Vital signs: Vital Signs Temp 96.9 F L 10/26/16 07:00 Pulse 74 10/26/16 12:05 Resp 20 10/26/16 07:00 BP 177/81 10/26/16 07:00 Pulse Ox 93 L 10/26/16 10:33 Intake & Output 10/25/16 10/26/16 10/26/16 18:59 06:59 18:59 Intake Total 1200 320 Balance 1200 320 Intake: Oral 1200 320 Other: # Voids 2 2 3 - Exam The patient appeared well nourished and normally developed. Vital signs as documented. Head exam is unremarkable. No scleral icterus or corneal arcus noted. Neck is without jugular venous distension, thyromegaly, or carotid bruits. Carotid upstrokes are brisk bilaterally. Lung sounds are diminished bilaterally and there is improvement in wheezing bilaterally. Cardiac exam reveals the PMI to be normally sized and situated. Rhythm is regular. First and second heart sounds normal. No murmurs, rubs or gallops. Abdominal exam reveals normal bowel sounds, no masses, no organomegaly and no aortic enlargement. Extremities are nonedematous and both femoral and pedal pulses are normal. - Labs CBC & Chem 7: 10/24/16 08:36 10/24/16 08:36 Labs: Abnormal Lab Results - Last 24 Hours (Table) 10/25/16 10/25/16 10/26/16 Range/Units 16:52 20:54 11:47 POC Glucose (mg/dL) 107 H 126 H 109 H (75-99) mg/dL Microbiology - Last 24 Hours (Table) 10/22/16 14:25 Gram Stain - Final Bronchial Washings - Left Bronchial Washings Culture - Final Aspergillus fumigatus Assessment and Plan Plan: Assessment 1 Right lung pneumonia. The patient recovered from the acute pneumonia. The bronchoscopy and the bronchioloalveolar lavage showed Aspergillus probably a colonizer and adenovirus. 2 acute COPD exacerbation secondary to right lung pneumonia, improving 3 nicotine addiction 4 hypertension 5 chronic pain 6 anxiety 7 oropharyngeal thrush, currently on oral Diflucan Plan The patient will be looking to live in a different location knowing that she may be exposed to molds in her home. She'll be quitting smoking. She will discharging home today on a prednisone burst taper, abdominal breast units [id number], Ventolin rescue inhaler, Spiriva as maintenance, she'll complete an additional 5 day course of Diflucan, she'll see her back in the office in a week or so for reevaluation. She will need a full pulmonary function test. Smoking cessation counseling was done. We'll follow. No need for oxygen as long as the patient maintains a pulse ox above 90%.
[2016-10-26 15:07] VITALS: BP 144/79; PULSE 64; TEMP 96.7
--- NOTE | 2016-10-27 21:45 | DS ---
DATE OF ADMISSION: 10/15/2016 DATE OF DISCHARGE: 10/26/2016 FINAL DIAGNOSES: 1. Sepsis secondary to right lower lobe pneumonia, possibly Gram-negative, present on admission, improved. 2. Status post bronchoscopy. 3. Chronic obstructive pulmonary disease, acute exacerbation. 4. Acute hypercapnic hypoxic respiratory failure, present on admission. 5. Hypovolemic hyponatremia, improved. 6. Hypokalemia, on replacement protocol. 7. History of nicotine dependence. 8. Anxiety not otherwise specified. 9. Chronic pain syndrome. 10. Hypertension, essential. 11. Oral candidiasis. 12. FULL CODE. DISCHARGE DISPOSITION: The patient will be discharged in stable condition with guarded prognosis. HISTORY OF PRESENT ILLNESS: This 55-year-old woman who presented with multiple complex medical issues, was admitted with COPD, acute exacerbation, as well as features of pneumonia. The patient was treated with bronchodilators and steroids. Dr. Hull performed a bronchoscopy. The culture showed Aspergillus fumigatus. On exam, vitals are stable. CARDIOVASCULAR SYSTEM: S1, S2 muffled. ABDOMEN: Soft, non-tender. NERVOUS SYSTEM: No focal deficit. DISCHARGE ADVICE AND MEDICATIONS: 1. Diet is cardiac. 2. Activity limited until followup. 3. Follow up with Dr. Corona in 2 to 3 days. 4. Follow up with Dr. Brice in one week. 5. Ventolin HFA 1 to 2 puffs q.6 p.r.n. 6. Xanax 1.5 mg b.i.d. p.r.n. 7. Atenolol/chlorthalildone 1 tablet p.o. b.i.d. 8. Symbicort 1 puff b.i.d. 9. No antibiotics per Dr. Hull. 10. Diflucan 100 mg p.o. daily for 5 days. 11. Mucinex 1200 mg p.o. q.i.d. p.r.n. 12. Hydrocodone 1 tablet p.o. b.i.d. p.r.n. 13. Albuterol Atrovent updrafts q.i.d. and p.r.n. 14. Multivitamins 1 p.o. daily. 15. Prednisone taper: 40 mg daily for 3 days; 30 mg daily for 3 days; 20 mg daily for 3 days; 10 mg daily for 3 days; then stop.
--- NOTE | 2016-11-02 21:04 | P.PN ---
Subjective Date of service 10/16/2016. Progress note being dictated for Dr. Rojo. Interval history: This is a 55-year-old female admitted with sepsis, pneumonia, acute hypercapnic and hypoxic respiratory failure secondary to his acute COPD exacerbation, and multiple other medical issues. Maintained on nebulized bronchodilators, Solu-Medrol,,Rocephin, Zithromax. Breathing slow to improve. remains tight, wheezy with nonproductive cough. Afebrile. Objective - Vital Signs Vital signs: Vital Signs Temp 98.8 F 10/16/16 23:00 Pulse 108 H 10/16/16 23:00 Resp 19 10/16/16 23:00 BP 143/66 10/16/16 23:00 Pulse Ox 93 L 10/16/16 23:00 Intake & Output 10/16/16 10/16/16 10/17/16 06:59 18:59 06:59 Intake Total 50 200 Balance 50 200 Intake: Intake, IV Titration 50 Amount cefTRIAXone 1,000 mg In 50 Sodium Chloride 0.9% 50 ml @ 100 mls/hr IVPB Q24HR [facility] Rx#:[id number] Oral 200 Other: Voiding Method Toilet Toilet Toilet # Voids 1 3 1 - Exam PHYSICAL EXAM: VITAL SIGNS: [as above.] GENERAL: [Sitting up in bed, tired appearing HEENT: [Pupils equal conjunctiva normal. Facial rosacea] NECK: [Supple, no JVD] RESPIRATORY EFFORT:[ Increased] LUNGS: Tight ,diminished with bilateral expiratory wheeze[] CARDIOVASCULAR[ regular S1 and S2 with no murmurs rubs or gallops, no edema] GI: [Abdomen soft, nontender, positive bowel sounds. PSYCH: [Alert and oriented -3, mood and affect anxious] NEURO: Gross neurological examination did not reveal any focal deficits - Labs CBC & Chem 7: 10/24/16 08:36 10/24/16 08:36 Labs: Abnormal Lab Results - Last 24 Hours (Table) 10/16/16 Range/Units 08:30 Sodium 136 L (137-145) mmol/L Calcium 8.2 L (8.4-10.2) mg/dL Microbiology - Last 24 Hours (Table) 10/15/16 09:30 Blood Culture - Preliminary Blood No Growth after 24 hours Assessment and Plan Plan: 1. [ Sepsis secondary to acute right lung pneumonia 2. [ Acute COPD exacerbation secondary to the above]. 3. [ Acute hypercapnic and hypoxic respiratory failure secondary to the above]. 4. [ Hypovolemic Hyponatremia, . 5. [ Hypokalemia, on replacement protocol]. 6. [ Ongoing nicotine abuse]. 7. [ Anxiety]. 8. Chronic pain 9. Hypertension Plan: Continue on current medication regime, nebulized bronchodilators, steroids, antibiotics, monitoring and symptomatic treatment. Slow Progress, pulmonary consulted. Further rec. pending. The impression and plan of care has been dictated as directed. : I performed a H&P examination of this patient and discussed the same with the dictator. I agree with the dictator's note. Any additional findings/opinions/ etc. will be noted.
--- NOTE | 2016-11-02 21:27 | P.PN ---
Subjective Date of service 10/17/2016. Progress note being dictated for Dr. Rojo. Interval history: This is a 55-year-old female admitted with sepsis, pneumonia, acute hypercapnic and hypoxic respiratory failure secondary to his acute COPD exacerbation, and multiple other medical issues.Continues on Rocephin and Zithromax. Significant wheezing. Evaluated by pulmmonary with recommnedations noted.Tmax 102.9, cultures pending,CXR reporting increased right lower lobe density. Denies Chest pain or paliptations. Objective - Vital Signs Vital signs: Vital Signs Temp 97.6 F 10/21/16 14:35 Pulse 85 10/21/16 14:35 Resp 18 10/21/16 14:35 BP 136/60 10/21/16 14:35 Pulse Ox 94 L 10/21/16 14:42 Intake & Output 10/20/16 10/21/16 10/21/16 18:59 06:59 18:59 Weight 74.843 kg Other: # Voids 4 2 1 - Exam PHYSICAL EXAM: T102.9, HR 108, RR 20, BP 143/66, O2 sat 92% on 2 L GENERAL: [Sitting up in bed, anxious appearing HEENT: [Pupils equal conjunctiva normal. Facial rosacea] NECK: [Supple, no JVD] RESPIRATORY EFFORT:[ Increased] LUNGS: Diminished with bilateral expiratory wheeze[] CARDIOVASCULAR[ regular S1 and S2 with no murmurs rubs or gallops, no edema] GI: [Abdomen soft, nontender, positive bowel sounds. PSYCH: [Alert and oriented -3, mood and affect anxious] NEURO: Gross neurological examination did not reveal any focal deficits - Labs CBC & Chem 7: 10/24/16 08:36 10/24/16 08:36 Labs: Abnormal Lab Results - Last 24 Hours (Table) 10/20/16 10/20/16 10/20/16 Range/Units 07:16 16:58 20:54 POC Glucose (mg/dL) 181 H 200 H (75-99) mg/dL Hemoglobin A1c 6.2 H (4.2-6.1) % 10/21/16 10/21/16 Range/Units 07:28 11:29 POC Glucose (mg/dL) 116 H 146 H (75-99) mg/dL Hemoglobin A1c (4.2-6.1) % Microbiology - Last 24 Hours (Table) 10/15/16 09:30 Blood Culture - Final Blood No Growth after 144 hours Assessment and Plan Plan: 1. [ Sepsis secondary to acute right lung pneumonia 2. [ Acute COPD exacerbation secondary to the above]. 3. [ Acute hypercapnic and hypoxic respiratory failure secondary to the above]. 4. [ Hypovolemic Hyponatremia, . 5. [ Hypokalemia, on replacement protocol]. 6. [ Ongoing nicotine abuse]. 7. [ Anxiety]. 8. Chronic pain 9. Hypertension Plan: Continue on current medication regime, nebulized bronchodilators, steroids, antibiotics, monitoring and symptomatic treatment. Continue on zithromax and Rocephin.Follow cultures closely.Close monitoring of electrolytes with repeat labs ordered for the am. Further rec. pending. The impression and plan of care has been dictated as directed. : I performed a H&P examination of this patient and discussed the same with the dictator. I agree with the dictator's note. Any additional findings/opinions/ etc. will be noted.
== END 2016-10-26 16:01 | disposition home or self-care (01) | DRG 853 ==
LOC: EC 08:43 → 4MS4W 11:59
PROVIDERS: ADMIT Internal Medicine; ATTEND Internal Medicine
PROC: 0B9F8ZX Drainage of Right Lower Lung Lobe, Via Natural or Artificial Opening Endoscopic, Diagnostic (ICD-10-PCS; principal; 2016-10-22 14:40)
DX: A41.9 Sepsis, unspecified organism (principal); J15.6 Pneumonia due to other Gram-negative bacteria; J96.01 Acute respiratory failure with hypoxia; J96.02 Acute respiratory failure with hypercapnia; J44.0 Chronic obstructive pulmonary disease with (acute) lower respiratory infection; J44.1 Chronic obstructive pulmonary disease with (acute) exacerbation; E87.1 Hypo-osmolality and hyponatremia; B37.0 Candidal stomatitis; N39.0 Urinary tract infection, site not specified; T17.990A Other foreign object in respiratory tract, part unspecified in causing asphyxiation, initial encounter; E83.42 Hypomagnesemia; E86.1 Hypovolemia; J98.01 Acute bronchospasm; E87.6 Hypokalemia; I10 Essential (primary) hypertension; F17.210 Nicotine dependence, cigarettes, uncomplicated; F41.9 Anxiety disorder, unspecified; G89.4 Chronic pain syndrome; Z87.01 Personal history of pneumonia (recurrent); Z79.899 Other long term (current) drug therapy
CPT/HCPCS: 31624; 36415; 71020; 71260; 80048; 80053; 81001; 82550; 82553; 83036; 83605; 83735; 84132; 84484; 85025; 85027; 85610; 85730; 86003; 87040; 87070; 87102; 87116; 87205; 87206; 87252; 87496; 87498; 87502; 87529; 87798; 88108; 88305; 89050; 93005; 94640; 94644; 94664; 94667; 94668; 94760; 96361; 96365; 96375; 99284

== ENCOUNTER 2018-01-15 22:06 | Emergency (ER) | payer OTHER ==
--- NOTE | 2018-01-15 22:23 | ED ---
General Adult HPI - General Chief complaint: Upper Respiratory Infection Stated complaint: Chest Pain Time Seen by Provider: 01/15/18 22:22 Source: patient Mode of arrival: ambulatory Limitations: no limitations - History of Present Illness Initial comments: Rossy is a 57yo female presents to the emergency department today for evaluation of wheezing and upper respiratory tract infection. Patient reports that yesterday she began to feel some wheezing and feeling as though she was getting a cold. The patient does have a history of fungal pneumonia in the past and wanted to be treated early before she got too sick. She saw her primary care physician today and received an IM antibiotic injection and was prescribed by marlon Hardin. Patient reports that despite starting this medication she is not feeling any better so she came to the ER for evaluation. Patient states that her daughter is getting next week and in that she cannot be sick so was very important to her to come in and get evaluated early. Patient reports feeling some wheezing, nonproductive cough, today she noted that she has lost her voice and can now speak only in a whisper. She denies any sore throat or throat pain. Patient can identify no relieving factors to her symptoms. She reports that she is feeling very rundown and tired. - Related Data Home Medications Medication Instructions Recorded Confirmed ALPRAZolam [Xanax] 0.5 mg PO BID PRN 06/13/16 10/15/16 Atenolol/Chlorthalidone 1 tab PO BID 06/13/16 10/15/16 [Atenolol-Chlorthalidone 50-25] Hydrocodone/Acetaminophen [[place] 1 tab PO BID PRN 06/13/16 10/15/16 10-325] Albuterol Inhaler [Ventolin Hfa 1 - 2 puff INHALATION RT-Q6H PRN 10/15/16 Inhaler] Previous Rx's Medication Instructions Recorded Budesonide/Formoterol Fumarate 1 puff IH BID #1 hfa.aer.ad 10/26/16 [Symbicort 160-4.5 Mcg Inhaler] Fluconazole Oral Susp [Diflucan 100 mg PO DAILY #14 bottle 10/26/16 Oral Susp] Ipratropium-Albuterol Nebulize 3 ml INHALATION RT-QID #120 neb 10/26/16 [Duoneb 0.5 mg-3 mg/3 ml Soln] Multivitamins, Thera [Multivitamin] 1 tab PO DAILY #30 tablet 10/26/16 guaiFENesin [Mucinex] 1,200 mg PO Q12HR #60 tab 10/26/16 predniSONE 10 mg PO DIRECTED #30 tab 10/26/16 Azithromycin 250 mg PO DAILY 4 Days #4 tab 01/15/18 Allergies Allergy/AdvReac Type Severity Reaction Status Date / Time No Known Allergies Allergy Verified 01/15/18 22:16 Review of Systems ROS Statement: Those systems with pertinent positive or pertinent negative responses have been documented in the HPI. ROS Other: All systems not noted in ROS Statement are negative. Past Medical History Past Medical History: Asthma, COPD, Hypertension, Pneumonia Additional Past Medical History / Comment(s): pneumonia, anxiety History of Any Multi-Drug Resistant Organisms: None Reported Past Surgical History: Section Additional Past Surgical History / Comment(s): Fertility surgery Past Anesthesia/Blood Transfusion Reactions: No Reported Reaction Past Psychological History: Anxiety Smoking Status: Current every day smoker Past Alcohol Use History: Occasional Past Drug Use History: None Reported - Past Family History Father Family Medical History: Cancer Additional Family Medical History / Comment(s): Father of mesothelioma at the age of 73 yrs. Mother Family Medical History: Cancer Additional Family Medical History / Comment(s): Mother of cancer-pt does not know type of cancer-she was 67yrs old. General Exam - General Exam Comments Initial Comments: GENERAL: Patient is well-developed and well-nourished. Patient is nontoxic and well- hydrated and is in no distress. HENT: Normocephalic, Atraumatic. Neck is soft and supple. No significant lymphadenopathy is noted. Oropharynx is clear. Moist mucous membranes. Neck has full range of motion without eliciting any pain. EYES: The sclera were anicteric and conjunctiva were pink and moist. Extraocular movements were intact and pupils were equal round and reactive to light. Eyelids were unremarkable. PULMONARY: Unlabored respirations. Good breath sounds bilaterally. Wheezes noted bilaterally CARDIOVASCULAR: There is a regular rate and rhythm without any murmurs gallops or rubs. ABDOMEN: Soft and nontender with normal bowel sounds. SKIN: Skin is clear with no lesions or rashes and otherwise unremarkable. NEUROLOGIC: Patient is alert and oriented x3. Cranial nerves II through XII are grossly intact. Motor and sensory are also intact. Normal speech, volume and content. Symmetrical smile. Normal gait MUSCULOSKELETAL: Normal extremities with adequate strength and full range of motion. No lower extremity swelling or edema. No calf tenderness. LYMPHATICS: No significant lymphadenopathy is noted PSYCHIATRIC: Normal psychiatric evaluation. Limitations: no limitations Limitations: no limitations Course Vital Signs 01/15/18 01/15/18 01/15/18 22:13 22:44 22:54 Temperature 98.3 F Pulse Rate 82 82 Respiratory 18 22 Rate Blood Pressure 141/80 O2 Sat by Pulse 96 Oximetry 01/15/18 01/15/18 23:02 23:44 Temperature 97.8 F Pulse Rate 88 79 Respiratory 18 Rate Blood Pressure 144/74 O2 Sat by Pulse 97 Oximetry Medical Decision Making - Medical Decision Making History and physical exam are concerning for a viral URI, however given the patient's history of COPD and fungal pneumonia in the past I will get labs and obtain cxr, patient does report tightness in her chest, cardiac workup will be ordered though I have a very low suspicion of cardiac etiology of symptoms. CXR reveals left sided pneumonia Considering the patient's history of COPD I will prescribe azithromycin, patient was given IM rocephin this morning Patient states she has albuterol nebs at home, does not need refill Lab and x-ray results were discussed with the patient, return parameters including worsening fever, shortness of breath, inability to hold down oral antibiotics, or development of any new or concerning symptoms were discussed with the patient. All questions pertaining to care were answered to the best my ability. Patient is agreeable to plan for discharge home with by mouth azithromycin, nebulizer therapy as needed for wheezing or shortness of breath and strict return parameters. I emphasized to the patient the importance of rest, I do understand that she does have her daughter's wedding next week and in a lot of complaining to go through this week but she needs to rest very patient expressed understanding of this, patient states that she has a large family visiting in good social support to help her heal before the wedding. - Lab Data Result diagrams: 01/15/18 22:29 01/15/18 22:29 Lab Results 01/15/18 01/15/18 01/15/18 Range/Units 22:29 22:29 22:29 WBC 6.7 (3.8-10.6) k/uL RBC 3.92 (3.80-5.40) m/uL Hgb 13.0 (11.4-16.0) gm/dL Hct 39.9 (34.0-46.0) % MCV 101.8 H (80.0-100.0) fL MCH 33.2 (25.0-35.0) pg MCHC 32.6 (31.0-37.0) g/dL RDW 13.1 (11.5-15.5) % Plt Count 249 (150-450) k/uL Neutrophils % 73 % Lymphocytes % 15 % Monocytes % 6 % Eosinophils % 3 % Basophils % 1 % Neutrophils # 4.9 (1.3-7.7) k/uL Lymphocytes # 1.0 (1.0-4.8) k/uL Monocytes # 0.4 (0-1.0) k/uL Eosinophils # 0.2 (0-0.7) k/uL Basophils # 0.0 (0-0.2) k/uL Macrocytosis Slight Sodium 137 (137-145) mmol/L Potassium 3.5 (3.5-5.1) mmol/L Chloride 101 (98-107) mmol/L Carbon Dioxide 27 (22-30) mmol/L Anion Gap 9 mmol/L BUN 20 H (7-17) mg/dL Creatinine 0.64 (0.52-1.04) mg/dL Est GFR (CKD-EPI)AfAm >90 (>60 ml/min/1.73 sqM) Est GFR (CKD-EPI)NonAf >90 (>60 ml/min/1.73 sqM) Glucose 140 H (74-99) mg/dL Calcium 8.7 (8.4-10.2) mg/dL Troponin I (0.000-0.034) ng/mL NT-Pro-B Natriuret Pep 99 pg/mL 01/15/18 Range/Units 22:29 WBC (3.8-10.6) k/uL RBC (3.80-5.40) m/uL Hgb (11.4-16.0) gm/dL Hct (34.0-46.0) % MCV (80.0-100.0) fL MCH (25.0-35.0) pg MCHC (31.0-37.0) g/dL RDW (11.5-15.5) % Plt Count (150-450) k/uL Neutrophils % % Lymphocytes % % Monocytes % % Eosinophils % % Basophils % % Neutrophils # (1.3-7.7) k/uL Lymphocytes # (1.0-4.8) k/uL Monocytes # (0-1.0) k/uL Eosinophils # (0-0.7) k/uL Basophils # (0-0.2) k/uL Macrocytosis Sodium (137-145) mmol/L Potassium (3.5-5.1) mmol/L Chloride (98-107) mmol/L Carbon Dioxide (22-30) mmol/L Anion Gap mmol/L BUN (7-17) mg/dL Creatinine (0.52-1.04) mg/dL Est GFR (CKD-EPI)AfAm (>60 ml/min/1.73 sqM) Est GFR (CKD-EPI)NonAf (>60 ml/min/1.73 sqM) Glucose (74-99) mg/dL Calcium (8.4-10.2) mg/dL Troponin I <0.012 (0.000-0.034) ng/mL NT-Pro-B Natriuret Pep pg/mL Disposition Clinical Impression: Left upper lobe pneumonia Disposition: HOME SELF-CARE Condition: Good Instructions: Bacterial Pneumonia (ED) Prescriptions: Azithromycin 250 mg PO DAILY 4 Days #4 tab Is patient prescribed a controlled substance at d/c from ED?: No Referrals: Adonis Brice DO [Doctor of Osteopathic Medicine] - 1-2 days Time of Disposition: 23:36
[2018-01-15] MEDS ORDERED: IPRATROPIUM-ALBUTEROL 3 ML NEB INHALATION STA (22:36)
[2018-01-15] MEDS ORDERED: methylPREDNISolone SOD SUCCI 125 MG/2 ML VIAL IV STA (22:39)
[2018-01-15 22:44] LABS: Basophils % (A) 1 %; Eosinophils # (A) 0.2 k/uL (0-0.7); Eosinophils % (A) 3 %; HCT 39.9 % (34.0-46.0); Lymphocytes % (A) 15 %; MCH 33.2 pg (25.0-35.0); MCHC 32.6 g/dL (31.0-37.0); MCV 101.8 fL (80.0-100.0); Macrocytosis Slight; Mean Platelet Volume 6.9; Monocytes # (A) 0.4 k/uL (0-1.0); Monocytes % (A) 6 %; Neutrophils # (A) 4.9 k/uL (1.3-7.7); Neutrophils % (A) 73 %; Platelet Count 249 k/uL (150-450); RBC 3.92 m/uL (3.80-5.40); RDW 13.1 % (11.5-15.5); WBC 6.7 k/uL (3.8-10.6)
[2018-01-15 22:53] LABS: Anion Gap 9 mmol/L; Blood Urea Nitrogen 20 mg/dL (7-17); Calcium 8.7 mg/dL (8.4-10.2); Carbon Dioxide 27 mmol/L (22-30); Chloride 101 mmol/L (98-107); Glucose 140 mg/dL (74-99); Potassium 3.5 mmol/L (3.5-5.1); Sodium 137 mmol/L (137-145)
--- NOTE | 2018-01-15 23:15 | XR ---
EXAMINATION TYPE: XR chest 2V DATE OF EXAM: 01/15/2018 COMPARISON: 10/26/2016 HISTORY: Cough TECHNIQUE: Frontal and lateral views of the chest are obtained. FINDINGS: There is a 3 cm infiltrate lateral to the left pulmonary hilum. This appears new compared to old exam. Heart is normal. Right lung is clear. There is no pleural effusion. There is no heart fa ilure. Bony thorax is intact. IMPRESSION: New infiltrate lateral to the left pulmonary hilum. This is most likely related to pneum onia. Follow-up is recommended to show clearing.
[2018-01-15] MEDS ORDERED: AZITHROMYCIN 500 MG TAB PO STA (23:21)
[2018-01-15 23:47] VITALS: BP 144/74; PULSE 79; RESP 18; TEMP 97.8
== END 2018-01-15 23:47 | disposition home or self-care (01) ==
LOC: EC 22:06
DX: J18.1 Lobar pneumonia, unspecified organism (principal); J44.0 Chronic obstructive pulmonary disease with (acute) lower respiratory infection; F17.200 Nicotine dependence, unspecified, uncomplicated; Z79.899 Other long term (current) drug therapy
CPT/HCPCS: 36415; 94640; 83880; 80048; 84484; 85025; 71046; 99284; 96374; J2930

== ENCOUNTER → 2018-01-19 | Outpatient (CLI) | payer OTHER ==
--- NOTE | 2018-01-19 12:20 | XR ---
EXAMINATION TYPE: XR chest 2V DATE OF EXAM: 01/19/2018 COMPARISON: 01/15/2018 TECHNIQUE: PA and lateral views submitted. HISTORY: Cough and congestion FINDINGS: The lungs are clear and there is no pneumothorax, pleural effusion, or focal pneumonia. Hypertrophi c change of the vertebral column. IMPRESSION: 1. No acute process.
== END | disposition home or self-care (01) ==
LOC: RADXRMAIN 12:02
PROVIDERS: ATTEND Internal Medicine Critical Care Medicine
DX: J18.1 Lobar pneumonia, unspecified organism (principal)
CPT/HCPCS: 71046

== ENCOUNTER → 2019-01-10 | Outpatient (CLI) | payer OTHER ==
--- NOTE | 2019-01-11 05:55 | MR ---
EXAMINATION TYPE: MR brain wo/w con DATE OF EXAM: 01/10/2019 COMPARISON: None HISTORY: Headache TECHNIQUE: Multiplanar, multisequence images of the brain and brainstem is performed without and with IV contras t, utilizing 7.5 mL intravenous Gadavist . FINDINGS: Ventricles of normal size. There is no mass effect nor midline shift. There is no sign of intracrania l hemorrhage. There is no evidence of cortical infarct. Brainstem is intact. Chan-white matter struct ures have fairly normal signal pattern. There is no evidence of cerebral edema. There is a single 3 m m focus of increased signal in the left parietal lobe chan-white matter junction on the FLAIR images. Corpus callosum appears normal. Sella turcica appears normal. There is no pathologic enhancement. There is normal contrast opacification of the venous sinuses. IMPRESSION: Single small focus of increased signal in the left parietal lobe white matter. Otherwise negative exam.
== END | disposition home or self-care (01) ==
LOC: RADMRIMAIN 20:39
PROVIDERS: ATTEND Psychiatry & Neurology Neurology
DX: R51 Headache (principal)
CPT/HCPCS: 70553; A9585

== ENCOUNTER 2019-05-12 14:18 | Emergency (ER) | payer OTHER ==
[2019-05-12 14:48] VITALS: RESP 18
[2019-05-12 15:04] LABS: Appearance,Urine Clear (Clear); Bilirubin,Urine Negative (Negative); Blood,Urine Small (Negative); Color,Urine Yellow; Glucose,Urine (UA) Negative (Negative); Ketones,Urine Negative (Negative); Leukocyte Esterase,Urine Negative (Negative); Mucus,Urine Rare /hpf; Nitrite,Urine Negative (Negative); Protein,Urine 1+ (Negative); RBC,Urine 2 /hpf (0-5); Specific Gravity,Urine 1.018 (1.001-1.035); Squamous Epithelial Cell,Urine 3 /hpf (0-4); Urobilinogen,Urine <2.0 mg/dL (<2.0); WBC,Urine <1 /hpf (0-5)
--- NOTE | 2019-05-12 16:52 | ED ---
Female Urogenital HPI - General Chief complaint: Urogenital Stated complaint: Kidney infection Time Seen by Provider: 05/12/19 16:28 Source: patient, RN notes reviewed, old records reviewed Mode of arrival: ambulatory Limitations: no limitations - History of Present Illness Initial comments: This is a 58-year-old female here for evaluation of blood in the urine back pain and dysuria. No fevers. Patient hasn't had urinary tract infection before this is similar. Mild nausea no vomiting no fevers. No significant abdominal pain. No diarrhea. MD Complaint: dysuria, other (hematuria) -: hour(s) Location: suprapubic Severity: moderate Severity scale (1-10): 4 Quality: dull Consistency: constant Improves with: none Worsens with: urination Patient : No Associated Symptoms: abdominal pain, dysuria - Related Data Sexually active: No Home Medications Medication Instructions Recorded Confirmed ALPRAZolam [Xanax] 0.5 mg PO BID PRN 06/13/16 10/15/16 Atenolol/Chlorthalidone 1 tab PO BID 06/13/16 10/15/16 [Atenolol-Chlorthalidone 50-25] Hydrocodone/Acetaminophen [[place] 1 tab PO BID PRN 06/13/16 10/15/16 10-325] Albuterol Inhaler [Ventolin Hfa 1 - 2 puff INHALATION RT-Q6H PRN 10/15/16 10/15/16 Inhaler] Previous Rx's Medication Instructions Recorded Budesonide/Formoterol Fumarate 1 puff IH BID #1 hfa.aer.ad 10/26/16 [Symbicort 160-4.5 Mcg Inhaler] Fluconazole Oral Susp [Diflucan 100 mg PO DAILY #14 bottle 10/26/16 Oral Susp] Ipratropium-Albuterol Nebulize 3 ml INHALATION RT-QID #120 neb 10/26/16 [Duoneb 0.5 mg-3 mg/3 ml Soln] Multivitamins, Thera [Multivitamin] 1 tab PO DAILY #30 tablet 10/26/16 guaiFENesin [Mucinex] 1,200 mg PO Q12HR #60 tab 10/26/16 predniSONE 10 mg PO DIRECTED #30 tab 10/26/16 Azithromycin 250 mg PO DAILY 4 Days #4 tab 01/15/18 Nitrofurantoin Monohyd/M-Cryst 100 mg PO Q12HR #14 cap 05/12/19 [Macrobid] Allergies Allergy/AdvReac Type Severity Reaction Status Date / Time No Known Allergies Allergy Verified 05/12/19 14:47 Review of Systems ROS Statement: Those systems with pertinent positive or pertinent negative responses have been documented in the HPI. ROS Other: All systems not noted in ROS Statement are negative. Past Medical History Past Medical History: Asthma, COPD, Hypertension, Pneumonia Additional Past Medical History / Comment(s): pneumonia, anxiety History of Any Multi-Drug Resistant Organisms: None Reported Past Surgical History: Section Additional Past Surgical History / Comment(s): Fertility surgery Past Anesthesia/Blood Transfusion Reactions: No Reported Reaction Past Psychological History: Anxiety Smoking Status: Former smoker Past Alcohol Use History: Occasional Past Drug Use History: Marijuana - Past Family History Father Family Medical History: Cancer Additional Family Medical History / Comment(s): Father of mesothelioma at the age of 73 yrs. Mother Family Medical History: Cancer Additional Family Medical History / Comment(s): Mother of cancer-pt does not know type of cancer-she was 67yrs old. General Exam Limitations: no limitations General appearance: alert, in no apparent distress Head exam: Present: atraumatic, normocephalic, normal inspection Eye exam: Present: normal appearance, PERRL, EOMI. Absent: scleral icterus, conjunctival injection, periorbital swelling ENT exam: Present: normal exam, mucous membranes moist Neck exam: Present: normal inspection. Absent: tenderness, meningismus, lymphadenopathy Respiratory exam: Present: normal lung sounds bilaterally. Absent: respiratory distress, wheezes, rales, rhonchi, stridor Cardiovascular Exam: Present: regular rate, normal rhythm, normal heart sounds. Absent: systolic murmur, diastolic murmur, rubs, gallop, clicks GI/Abdominal exam: Present: soft, normal bowel sounds. Absent: distended, tenderness, guarding, rebound, rigid Extremities exam: Present: normal inspection, full ROM, normal capillary refill. Absent: tenderness, pedal edema, joint swelling, calf tenderness Back exam: Present: normal inspection Neurological exam: Present: alert, oriented X3, CN II-XII intact Psychiatric exam: Present: normal affect, normal mood Skin exam: Present: warm, dry, intact, normal color. Absent: rash Course Vital Signs 05/12/19 05/12/19 14:44 18:26 Temperature 98.4 F 98.3 F Pulse Rate 90 87 Respiratory 18 18 Rate Blood Pressure 113/61 152/94 O2 Sat by Pulse 99 95 Oximetry Medical Decision Making - Medical Decision Making 58 female here for evaluation patient feeling she has urinary tract infection we are seeing an urinary tract infection here in the ER patient will be discharged home on antibiotics - Lab Data Lab Results 05/12/19 Range/Units 14:54 Urine Color Yellow Urine Appearance Clear (Clear) Urine pH 6.0 (5.0-8.0) Ur Specific [place] 1.018 (1.001-1.035) Urine Protein 1+ H (Negative) Urine Glucose (UA) Negative (Negative) Urine Ketones Negative (Negative) Urine Blood Small H (Negative) Urine Nitrite Negative (Negative) Urine Bilirubin Negative (Negative) Urine Urobilinogen <2.0 (<2.0) mg/dL Ur Leukocyte Esterase Negative (Negative) Urine RBC 2 (0-5) /hpf Urine WBC <1 (0-5) /hpf Ur Squamous Epith Cells 3 (0-4) /hpf Urine Mucus Rare H (None) /hpf Disposition Clinical Impression: Urinary tract infection, Hematuria Disposition: HOME SELF-CARE Condition: Good Instructions (If sedation given, give patient instructions): Urinary Tract Infection in Women (ED) Prescriptions: Nitrofurantoin Monohyd/M-Cryst [Macrobid] 100 mg PO Q12HR #14 cap Is patient prescribed a controlled substance at d/c from ED?: No Referrals: Ursula Corona MD [Primary Care Provider] - 1-2 days
--- NOTE | 2019-05-12 18:16 | CT ---
EXAMINATION TYPE: CT abdomen pelvis wo con DATE OF EXAM: 05/12/2019 COMPARISON: HISTORY: BILATERAL FLANK PAIN CT DLP: 732.6 mGycm Automated exposure control for dose reduction was used. Multiple axial sections were obtained from the diaphragm to the floor the pelvis without contrast. Lung bases are clear. Heart size is normal. There is no pericardial effusion. Liver spleen pancreas gallbladder appear normal. Bile ducts are not dilated. There is no adrenal mass. Kidneys show normal size and contour. There is no hydronephrosis. Ureters a re not dilated. There is no retroperitoneal adenopathy. Bladder distends smoothly. There is no inguin al hernia. There is no free fluid in the pelvis. Uterus is anteverted. There is narrowing at L4-5 disc. There is no compression fracture. There is no mesenteric edema. There is no ascites or free air. There is no sign of a bowel obstructio n. Appendix appears normal. IMPRESSION: No renal stone or obstruction. Normal appendix. L4-5 spondylosis.
[2019-05-12 18:27] VITALS: BP 152/94; PULSE 87; TEMP 98.3
== END 2019-05-12 18:45 | disposition home or self-care (01) ==
LOC: EC 14:18
DX: N39.0 Urinary tract infection, site not specified (principal); I10 Essential (primary) hypertension; J44.9 Chronic obstructive pulmonary disease, unspecified; F41.9 Anxiety disorder, unspecified; Z79.899 Other long term (current) drug therapy; Z87.891 Personal history of nicotine dependence
CPT/HCPCS: 74176; 81001; 99284

== ENCOUNTER 2019-12-22 12:14 | Emergency (ER) | payer OTHER ==
[2019-12-22] MEDS ORDERED: KETOROLAC 30 MG/ML 1 ML VIAL IVP STA (12:50)
[2019-12-22] MEDS ORDERED: MORPHINE SULFATE 4 MG/ML SYRINGE IV STA (12:50)
[2019-12-22] MEDS ORDERED: SODIUM CHLORIDE 0.9% 1,000 ML IV STA ×2 (12:50)
--- NOTE | 2019-12-22 12:54 | ED ---
Back Pain HPI - General Chief Complaint: Back Pain/Injury Stated Complaint: back/kidney pain Time Seen by Provider: 12/22/19 12:23 Source: patient, RN notes reviewed, old records reviewed Limitations: no limitations - History of Present Illness Initial Comments: Patient is a 59-year-old female who presents emergency department today with chief complaint of back pain, and symptoms of UTI for the past weekend. Patient reports that she's been treated for multiple UTIs within the past 6 months. She states that she started Cipro on Thursday for recurrent UTI symptoms. Her last urine culture performed on December 05 was negative for infection. She states that she's been told by PCP she's had a lot of protein and blood in her urine. She does have an upcoming appointment scheduled with urology within the next few weeks. She states she's had no imaging testing done to relate to the patient's persistent UTIs or hematuria at this time. She states that today the back pain seemed to be worse to report occasional radiation down her lower leg. She denies any localized abdominal pain. - Related Data Home Medications Medication Instructions Recorded Confirmed ALPRAZolam [Xanax] 0.5 - 1 mg PO BID PRN 12/22/19 12/22/19 Albuterol Sulfate [Albuterol 1 - 2 puff INHALATION RT-Q6H PRN 12/22/19 12/22/19 Sulfate Hfa] Fluticasone/Vilanterol [Breo 1 puff INHALATION RT-DAILY 12/22/19 12/22/19 Ellipta 100-25 Mcg Inhaler] Metoprolol Tartrate [Lopressor] 50 mg PO BID 12/22/19 12/22/19 hydroCHLOROthiazide [Hydrodiuril] 25 mg PO DAILY 12/22/19 12/22/19 lisinopriL [Zestril] 2.5 mg PO HS 12/22/19 12/22/19 Previous Rx's Medication Instructions Recorded Cyclobenzaprine [Flexeril] 10 mg PO TID #15 tab 12/22/19 Allergies Allergy/AdvReac Type Severity Reaction Status Date / Time No Known Allergies Allergy Verified 12/22/19 13:20 Review of Systems ROS Statement: Those systems with pertinent positive or pertinent negative responses have been documented in the HPI. ROS Other: All systems not noted in ROS Statement are negative. Past Medical History Past Medical History: Asthma, COPD, Hypertension, Pneumonia Additional Past Medical History / Comment(s): pneumonia, anxiety History of Any Multi-Drug Resistant Organisms: None Reported Past Surgical History: Section Additional Past Surgical History / Comment(s): Fertility surgery Past Anesthesia/Blood Transfusion Reactions: No Reported Reaction Past Psychological History: Anxiety Smoking Status: Former smoker Past Alcohol Use History: Occasional Past Drug Use History: Marijuana - Past Family History Father Family Medical History: Cancer Additional Family Medical History / Comment(s): Father of mesothelioma at the age of 73 yrs. Mother Family Medical History: Cancer Additional Family Medical History / Comment(s): Mother of cancer-pt does not know type of cancer-she was 67yrs old. General Exam - General Exam Comments Initial Comments: 59-year-old female. Alert and oriented 3. No significant distress. Limitations: no limitations Head exam: Present: atraumatic, normocephalic, normal inspection Eye exam: Present: normal appearance, PERRL, EOMI. Absent: scleral icterus, conjunctival injection, periorbital swelling ENT exam: Present: normal exam, mucous membranes moist Neck exam: Present: normal inspection. Absent: tenderness, meningismus, lymphadenopathy Respiratory exam: Present: normal lung sounds bilaterally. Absent: respiratory distress, wheezes, rales, rhonchi, stridor Cardiovascular Exam: Present: regular rate, normal rhythm, normal heart sounds. Absent: systolic murmur, diastolic murmur, rubs, gallop, clicks GI/Abdominal exam: Present: soft, normal bowel sounds. Absent: distended, tenderness, guarding, rebound, rigid Extremities exam: Present: normal inspection, full ROM, normal capillary refill. Absent: tenderness, pedal edema, joint swelling, calf tenderness Back exam: Present: normal inspection, tenderness (lumbar spine, and sciatic notch) Neurological exam: Present: alert, oriented X3, CN II-XII intact Psychiatric exam: Present: normal affect, normal mood Skin exam: Present: warm, dry, intact, normal color. Absent: rash Course Vital Signs 12/22/19 12/22/19 12/22/19 12:16 12:21 13:21 Temperature 97.7 F Pulse Rate 60 Respiratory 20 18 18 Rate Blood Pressure 149/85 O2 Sat by Pulse 97 Oximetry Medical Decision Making - Medical Decision Making Patient is a 59-year-old female present a prescription for concern for back pain worse with movement. She states she's had history of frequent urinary tract infections and states that she is concerned this is related to her back pain today. At this time Patient has no CVA tenderness to chest has some lumbar spine tenderness. She does report occasionally will radiate down her leg. At this time Patient urinalysis and blood work was reviewed and unremarkable. She has been taking ciprofloxacin since Thursday for Her developing UTI. I discussed that Cipro Floxin can cause tendon and ligamentous injury. Discussed that likely related to patient's pains today. She has a follow-up appointment with urology in the next couple upcoming weeks. Discussed itchiness appointment to follow-up with PCP in the interim. We'll discharge Patient this time with antibiotics or medication and muscle relaxers for muscle skeletal back pain. - Lab Data Result diagrams: 12/22/19 13:07 12/22/19 13:07 Lab Results 12/22/19 12/22/19 12/22/19 Range/Units 13:07 13:07 13:07 WBC 5.0 (3.8-10.6) k/uL RBC 4.53 (3.80-5.40) m/uL Hgb 14.8 (11.4-16.0) gm/dL Hct 45.0 (34.0-46.0) % MCV 99.4 (80.0-100.0) fL MCH 32.7 (25.0-35.0) pg MCHC 32.9 (31.0-37.0) g/dL RDW 12.1 (11.5-15.5) % Plt Count 257 (150-450) k/uL Neutrophils % 50 % Lymphocytes % 37 % Monocytes % 6 % Eosinophils % 4 % Basophils % 1 % Neutrophils # 2.5 (1.3-7.7) k/uL Lymphocytes # 1.9 (1.0-4.8) k/uL Monocytes # 0.3 (0-1.0) k/uL Eosinophils # 0.2 (0-0.7) k/uL Basophils # 0.0 (0-0.2) k/uL Sodium 134 L (137-145) mmol/L Potassium 4.3 (3.5-5.1) mmol/L Chloride 100 (98-107) mmol/L Carbon Dioxide 28 (22-30) mmol/L Anion Gap 6 mmol/L BUN 12 (7-17) mg/dL Creatinine 0.57 (0.52-1.04) mg/dL Est GFR (CKD-EPI)AfAm >90 (>60 ml/min/1.73 sqM) Est GFR (CKD-EPI)NonAf >90 (>60 ml/min/1.73 sqM) Glucose 91 (74-99) mg/dL Calcium 9.1 (8.4-10.2) mg/dL Total Bilirubin 0.7 (0.2-1.3) mg/dL AST 35 (14-36) U/L ALT 35 H (4-34) U/L Alkaline Phosphatase 81 (38-126) U/L Total Protein 6.4 (6.3-8.2) g/dL Albumin 3.8 (3.5-5.0) g/dL Amylase 50 (30-110) U/L Lipase 103 (23-300) U/L Urine Color Light Yellow Urine Appearance Clear (Clear) Urine pH 7.0 (5.0-8.0) Ur Specific [place] 1.006 (1.001-1.035) Urine Protein Trace H (Negative) Urine Glucose (UA) Negative (Negative) Urine Ketones Negative (Negative) Urine Blood Negative (Negative) Urine Nitrite Negative (Negative) Urine Bilirubin Negative (Negative) Urine Urobilinogen <2.0 (<2.0) mg/dL Ur Leukocyte Esterase Negative (Negative) - Radiology Data Radiology results: report reviewed Disposition Clinical Impression: Musculoskeletal back pain Disposition: HOME SELF-CARE Condition: Good Instructions (If sedation given, give patient instructions): Acute Low Back Pain (ED) Additional Instructions: Patient advised to take the medications as prescribed. Recommend follow-up with primary care physician as well as following up with urology as previously scheduled. Return to the emergency department if any alarming signs or symptoms occur. Prescriptions: Cyclobenzaprine [Flexeril] 10 mg PO TID #15 tab Is patient prescribed a controlled substance at d/c from ED?: No Referrals: Ursula Corona MD [Primary Care Provider] - 1-2 days Time of Disposition: 14:22
[2019-12-22 13:23] LABS: Appearance,Urine Clear (Clear); Bilirubin,Urine Negative (Negative); Blood,Urine Negative (Negative); Color,Urine Light Yellow; Glucose,Urine (UA) Negative (Negative); Ketones,Urine Negative (Negative); Leukocyte Esterase,Urine Negative (Negative); Nitrite,Urine Negative (Negative); Protein,Urine Trace (Negative); Specific Gravity,Urine 1.006 (1.001-1.035); Urobilinogen,Urine <2.0 mg/dL (<2.0)
[2019-12-22 13:27] LABS: ALT 35 U/L (4-34); AST 35 U/L (14-36); African American GFR (CKD) >90 (>60 ml/min/1.73 sqM); Albumin 3.8 g/dL (3.5-5.0); Alkaline Phosphatase 81 U/L (38-126); Amylase 50 U/L (30-110); Anion Gap 6 mmol/L; Blood Urea Nitrogen 12 mg/dL (7-17); Calcium 9.1 mg/dL (8.4-10.2); Carbon Dioxide 28 mmol/L (22-30); Chloride 100 mmol/L (98-107); Glucose 91 mg/dL (74-99); Non-African American GFR(CKD) >90 (>60 ml/min/1.73 sqM); Potassium 4.3 mmol/L (3.5-5.1); Sodium 134 mmol/L (137-145); Total Bilirubin 0.7 mg/dL (0.2-1.3); Total Protein 6.4 g/dL (6.3-8.2)
[2019-12-22 13:31] LABS: Basophils % (A) 1 %; Eosinophils # (A) 0.2 k/uL (0-0.7); Eosinophils % (A) 4 %; HGB 14.8 gm/dL (11.4-16.0); Lymphocytes # (A) 1.9 k/uL (1.0-4.8); Lymphocytes % (A) 37 %; MCH 32.7 pg (25.0-35.0); MCHC 32.9 g/dL (31.0-37.0); MCV 99.4 fL (80.0-100.0); Mean Platelet Volume 7.9; Monocytes # (A) 0.3 k/uL (0-1.0); Monocytes % (A) 6 %; Neutrophils # (A) 2.5 k/uL (1.3-7.7); Neutrophils % (A) 50 %; Platelet Count 257 k/uL (150-450); RBC 4.53 m/uL (3.80-5.40); RDW 12.1 % (11.5-15.5)
[2019-12-22 13:57] VITALS: RESP 18
--- NOTE | 2019-12-22 13:57 | XR ---
EXAMINATION TYPE: XR lumbar spine 2 or 3V DATE OF EXAM: 12/22/2019 CLINICAL HISTORY: Lumbar back pain TECHNIQUE: Frontal and lateral images of the lumbar spine obtained COMPARISON: CT abdomen pelvis 04/22/2019 FINDINGS: There are 5 lumbar type vertebral bodies identified. The lumbar spine shows satisfactory alignment without evidence of acute fracture or dislocation. Vertebral body heights are within normal limits. Disc space narrowing of L4-L5 with vacuum disc phenomenon. Multilevel mild anterior osteophy tic spurring. Facet arthropathy of the inferior lumbar spine. Calcified atherosclerotic disease of th e abdominal aorta. IMPRESSION: 1. No acute fracture or dislocation is seen in the lumbar spine. 2. Degenerative disc disease and facet arthropathy.
--- NOTE | 2019-12-22 13:59 | XR ---
EXAMINATION TYPE: XR KUB DATE OF EXAM: 12/22/2019 1:53 PM CLINICAL HISTORY: Lumbar back pain. TECHNIQUE: Upright images of the abdomen and pelvis were obtained COMPARISON: CT abdomen pelvis 05/12/2019. FINDINGS: Scattered gas is seen in non-distended small bowel loops. Gas and fecal material is seen in non-distended colon. There is no visceromegaly, pneumoperitoneum, or abnormal calcification apprecia jose luis. No calcifications overlie the renal shadows, although the left renal shadow partially obscured d ue to overlying bowel. The lung bases are clear. The osseous structures are intact. IMPRESSION: Nonspecific bowel gas pattern.
[2019-12-22] MEDS ORDERED: ACET/COD 300 MG/30 MG STARTER PACK 6 TAB BTL PO STA (14:23)
[2019-12-22 14:47] VITALS: BP 169/82; PULSE 59; TEMP 97.9
== END 2019-12-22 14:52 | disposition home or self-care (01) ==
LOC: EC 12:14
DX: M54.5 Low back pain (principal); M79.606 Pain in leg, unspecified; J44.9 Chronic obstructive pulmonary disease, unspecified; F41.9 Anxiety disorder, unspecified; I10 Essential (primary) hypertension; Z79.51 Long term (current) use of inhaled steroids; Z79.899 Other long term (current) drug therapy; Z87.891 Personal history of nicotine dependence
CPT/HCPCS: 36415; 80053; 82150; 83690; 85025; 81003; 72100; 74018; 99284; 96374; 96375; 96361 ×2; J2270; J1885

== ENCOUNTER → 2020-02-14 | Outpatient (CLI) | payer OTHER ==
--- NOTE | 2020-02-14 10:42 | MR ---
EXAMINATION TYPE: MR lumbar spine wo con DATE OF EXAM: 02/14/2020 COMPARISON: Plain film 12/22/2019, prior lumbar MRI 03/12/2016 HISTORY: Lumbar Spine pain TECHNIQUE: Multiplanar, multisequence images of the lumbar spine were acquired. L1-L2: Normal disc appearance without desiccation. No herniation, protrusion or disc bulging. No ca nal stenosis is present. Foramina are patent bilaterally. L2-L3: Minimal posterior disc bulge. There is facet arthropathy change with hypertrophy of the ligame ntum flavum. No significant foraminal encroachment or spinal stenosis. L3-L4: Posterior disc bulge causes mild anterior mass effect on the thecal sac. There is some facet a rthropathy change with hypertrophy of the ligamentum flavum causing minimal posterior lateral mass ef fect on the thecal sac. No significant spinal stenosis. No significant foraminal encroachment. L4-L5: Posterior broad-based disc bulge extends circumferentially to cause foraminal encroachment mikaela aterally, endplate disc complex is noted on the left and right, the posterior disc bulge causes anter ior mass effect on the thecal sac similar to prior. Facet arthropathy with hypertrophic change of the ligamentum flavum causes some posterior lateral mass effect on the thecal sac, there is a trefoil ap pearance of the thecal sac similar to prior exam. L5-S1: There is facet arthropathy present. No significant spinal stenosis. Posterior disc bulge cause s only minimal anterior mass effect on the thecal sac, may contact the proximal S1 nerve roots. No si gnificant foraminal encroachment. Lumbar segments are intact. No paraspinal masses are identified. Conus medullaris has a normal appe arance. Loss of disc height and signal is again noted at L4-5, there is multilevel spondylosis, endpl ate discogenic marrow signal change. Lumbar vertebral bodies show stable height and alignment. IMPRESSION: Degenerative disc disease, facet arthropathy, foraminal encroachment is similar to prior exam.
== END | disposition home or self-care (01) ==
LOC: RADMRIMAIN 09:05
PROVIDERS: ATTEND Psychiatry & Neurology Neurology
DX: M51.36 Other intervertebral disc degeneration, lumbar region (principal); M46.96 Unspecified inflammatory spondylopathy, lumbar region
CPT/HCPCS: 72148

== ENCOUNTER 2020-05-30 01:23 | Emergency (ER) | payer OTHER ==
[2020-05-30 01:32] VITALS: RESP 18; TEMP 98.3
[2020-05-30] MEDS ORDERED: SODIUM CHLORIDE 0.9% 1,000 ML IV STA (01:37)
--- NOTE | 2020-05-30 01:42 | ED ---
Neuro HPI - General Chief Complaint: Neuro Symptoms/Deficit Stated Complaint: Right facial numbness Time Seen by Provider: 05/30/20 01:36 Source: patient, old records reviewed Mode of arrival: ambulatory Limitations: no limitations - History of Present Illness Is the patient presenting with stroke symptoms?: No -: hour(s) Initial Comments: This is a 59-year-old female DF for evaluation of neurological patient is right sided facial numbness is progressing to tingling and pain. Right-sided face and forehead. She initially had some finger numbness and tingling both hands that is resolved. Patient has history of high blood pressure high cholesterol former smoker. Occasional headaches and she has history of degenerative disc disease. No new trauma or injury no fevers. Patient denies current headache and states symptoms are improving. No prior history of CVA. Patient does admit to alcohol intake tonight Location: right face History of same: No Place: home Severity: mild Quality: numb, tingling Improves With: none Worsens With: none On Anticoagulants: No Context: gradual onset Associated Symptoms: denies other symptoms Treatments Prior to Arrival: none - Related Data Home Medications: Home Medications Medication Instructions Recorded Confirmed ALPRAZolam [Xanax] 0.5 - 1 mg PO BID PRN 12/22/19 12/22/19 Albuterol Sulfate [Albuterol 1 - 2 puff INHALATION RT-Q6H PRN 12/22/19 12/22/19 Sulfate Hfa] Fluticasone/Vilanterol [Breo 1 puff INHALATION RT-DAILY 12/22/19 12/22/19 Ellipta 100-25 Mcg Inhaler] Metoprolol Tartrate [Lopressor] 50 mg PO BID 12/22/19 12/22/19 hydroCHLOROthiazide [Hydrodiuril] 25 mg PO DAILY 12/22/19 12/22/19 lisinopriL [Zestril] 2.5 mg PO HS 12/22/19 12/22/19 Previous Rx's Medication Instructions Recorded Cyclobenzaprine [Flexeril] 10 mg PO TID #15 tab 12/22/19 Allergies/Adverse Reactions: Allergies Allergy/AdvReac Type Severity Reaction Status Date / Time No Known Allergies Allergy Verified 12/22/19 13:20 Review of Systems ROS Statement: Those systems with pertinent positive or pertinent negative responses have been documented in the HPI. ROS Other: All systems not noted in ROS Statement are negative. General Exam Limitations: no limitations General appearance: alert, appears intoxicated, anxious Head exam: Present: atraumatic, normocephalic, normal inspection Eye exam: Present: normal appearance, PERRL, EOMI. Absent: scleral icterus, conjunctival injection, periorbital swelling ENT exam: Present: normal exam, mucous membranes moist Neck exam: Present: normal inspection. Absent: tenderness, meningismus, lymphadenopathy Respiratory exam: Present: normal lung sounds bilaterally. Absent: respiratory distress, wheezes, rales, rhonchi, stridor Cardiovascular Exam: Present: regular rate, normal rhythm, normal heart sounds. Absent: systolic murmur, diastolic murmur, rubs, gallop, clicks GI/Abdominal exam: Present: soft, normal bowel sounds. Absent: distended, tenderness, guarding, rebound, rigid Extremities exam: Present: normal inspection, full ROM, normal capillary refill. Absent: tenderness, pedal edema, joint swelling, calf tenderness Back exam: Present: normal inspection Neurological exam: Present: alert, oriented X3, CN II-XII intact Psychiatric exam: Present: normal affect, normal mood Skin exam: Present: warm, dry, intact, normal color. Absent: rash Stroke MDM - Lab Data Result diagrams: 05/30/20 01:43 05/30/20 01:43 Lab Results 05/30/20 05/30/20 05/30/20 Range/Units 01:43 01:43 01:43 WBC 8.0 (3.8-10.6) k/uL RBC 4.55 (3.80-5.40) m/uL Hgb 15.5 (11.4-16.0) gm/dL Hct 44.4 (34.0-46.0) % MCV 97.6 (80.0-100.0) fL MCH 34.1 (25.0-35.0) pg MCHC 35.0 (31.0-37.0) g/dL RDW 12.4 (11.5-15.5) % Plt Count 269 (150-450) k/uL MPV 7.3 Neutrophils % 36 % Lymphocytes % 51 % Monocytes % 6 % Eosinophils % 3 % Basophils % 1 % Neutrophils # 2.9 (1.3-7.7) k/uL Lymphocytes # 4.1 (1.0-4.8) k/uL Monocytes # 0.5 (0-1.0) k/uL Eosinophils # 0.3 (0-0.7) k/uL Basophils # 0.1 (0-0.2) k/uL PT 9.5 (9.0-12.0) sec INR 0.9 (<1.2) APTT 25.0 (22.0-30.0) sec Sodium 139 (137-145) mmol/L Potassium 3.6 (3.5-5.1) mmol/L Chloride 102 (98-107) mmol/L Carbon Dioxide 29 (22-30) mmol/L Anion Gap 8 mmol/L BUN 22 H (7-17) mg/dL Creatinine 0.73 (0.52-1.04) mg/dL Est GFR (CKD-EPI)AfAm >90 (>60 ml/min/1.73 sqM) Est GFR (CKD-EPI)NonAf >90 (>60 ml/min/1.73 sqM) Glucose 101 H (74-99) mg/dL Calcium 9.3 (8.4-10.2) mg/dL Phosphorus 4.4 (2.5-4.5) mg/dL Magnesium 1.7 (1.6-2.3) mg/dL Total Bilirubin 0.3 (0.2-1.3) mg/dL AST 37 H (14-36) U/L ALT 42 H (4-34) U/L Alkaline Phosphatase 97 (38-126) U/L Creatine Kinase 85 (30-135) U/L Troponin I (0.000-0.034) ng/mL NT-Pro-B Natriuret Pep pg/mL Total Protein 7.1 (6.3-8.2) g/dL Albumin 4.1 (3.5-5.0) g/dL Urine Color Urine Appearance (Clear) Urine pH (5.0-8.0) Ur Specific [place] (1.001-1.035) Urine Protein (Negative) Urine Glucose (UA) (Negative) Urine Ketones (Negative) Urine Blood (Negative) Urine Nitrite (Negative) Urine Bilirubin (Negative) Urine Urobilinogen (<2.0) mg/dL Ur Leukocyte Esterase (Negative) Urine RBC (0-5) /hpf Urine WBC (0-5) /hpf Ur Squamous Epith Cells (0-4) /hpf Serum Alcohol 177 mg/dL 05/30/20 05/30/20 05/30/20 Range/Units 01:43 01:43 01:54 WBC (3.8-10.6) k/uL RBC (3.80-5.40) m/uL Hgb (11.4-16.0) gm/dL Hct (34.0-46.0) % MCV (80.0-100.0) fL MCH (25.0-35.0) pg MCHC (31.0-37.0) g/dL RDW (11.5-15.5) % Plt Count (150-450) k/uL MPV Neutrophils % % Lymphocytes % % Monocytes % % Eosinophils % % Basophils % % Neutrophils # (1.3-7.7) k/uL Lymphocytes # (1.0-4.8) k/uL Monocytes # (0-1.0) k/uL Eosinophils # (0-0.7) k/uL Basophils # (0-0.2) k/uL PT (9.0-12.0) sec INR (<1.2) APTT (22.0-30.0) sec Sodium (137-145) mmol/L Potassium (3.5-5.1) mmol/L Chloride (98-107) mmol/L Carbon Dioxide (22-30) mmol/L Anion Gap mmol/L BUN (7-17) mg/dL Creatinine (0.52-1.04) mg/dL Est GFR (CKD-EPI)AfAm (>60 ml/min/1.73 sqM) Est GFR (CKD-EPI)NonAf (>60 ml/min/1.73 sqM) Glucose (74-99) mg/dL Calcium (8.4-10.2) mg/dL Phosphorus (2.5-4.5) mg/dL Magnesium (1.6-2.3) mg/dL Total Bilirubin (0.2-1.3) mg/dL AST (14-36) U/L ALT (4-34) U/L Alkaline Phosphatase (38-126) U/L Creatine Kinase (30-135) U/L Troponin I <0.012 (0.000-0.034) ng/mL NT-Pro-B Natriuret Pep 38 pg/mL Total Protein (6.3-8.2) g/dL Albumin (3.5-5.0) g/dL Urine Color Colorless Urine Appearance Clear (Clear) Urine pH 6.5 (5.0-8.0) Ur Specific [place] 1.005 (1.001-1.035) Urine Protein 2+ H (Negative) Urine Glucose (UA) Negative (Negative) Urine Ketones Negative (Negative) Urine Blood Trace H (Negative) Urine Nitrite Negative (Negative) Urine Bilirubin Negative (Negative) Urine Urobilinogen <2.0 (<2.0) mg/dL Ur Leukocyte Esterase Negative (Negative) Urine RBC 2 (0-5) /hpf Urine WBC 1 (0-5) /hpf Ur Squamous Epith Cells 1 (0-4) /hpf Serum Alcohol mg/dL - NIH Stroke Scale 1a. Level of Consciousness: (0) alert 1b. LOC Questions: (0) answers correctly 1c. LOC Commands: (0) performs tasks correctly 2. Best Gaze: (0) normal 3. Visual: (0) no visual loss 4. Facial Palsy: (0) normal symmetrical movement 5a. Motor Arm Left: (0) no drift 5b. Motor Arm Right: (0) no drift 6a. Motor Leg Left: (0) no drift 6b. Motor Leg Right: (0) no drift 7. Limb Ataxia: (0) absent 8. Sensory: (0) normal 9. Best Language: (0) no aphasia 10. Dysarthria: (0) normal 11. Extinction/Inattention: (0) no abnormality - Thrombolytic Inclusion/Exclusion Thrombolytic Inclusion Criteria: Symptom Onset < 4.5 h Thrombolytic Contraindications: Risks Outweigh Benefits, Stroke Too Mild - Medical Decision Making 59 female DF for evaluation of neurological complaint. Patient does have some risk factors for CVA high blood pressure cholesterol former smoker. But no significant focal deficits found here in the ER. CT is negative patient is in remains without focal neurological deficit. Patient can be discharged home - Radiology Data Radiology results: report reviewed (CT brain negative for acute disease), image reviewed - EKG Data -: EKG Interpreted by Me (EKG is sinus rhythm 82, UT 160 QRS 86 QTc 429) Past Medical History Past Medical History: Asthma, COPD, Hypertension, Pneumonia Additional Past Medical History / Comment(s): pneumonia, anxiety History of Any Multi-Drug Resistant Organisms: None Reported Past Surgical History: Section Additional Past Surgical History / Comment(s): Fertility surgery Past Anesthesia/Blood Transfusion Reactions: No Reported Reaction Past Psychological History: Anxiety Smoking Status: Former smoker Past Alcohol Use History: Occasional Past Drug Use History: Marijuana - Past Family History Father Family Medical History: Cancer Additional Family Medical History / Comment(s): Father of mesothelioma at the age of 73 yrs. Mother Family Medical History: Cancer Additional Family Medical History / Comment(s): Mother of cancer-pt does not know type of cancer-she was 67yrs old. Course Vital Signs 05/30/20 01:29 Temperature 98.3 F Pulse Rate 82 Respiratory 18 Rate Blood Pressure 162/93 O2 Sat by Pulse 96 Oximetry Disposition Clinical Impression: Transient cerebral ischemia, Facial paresthesia, Alcohol intoxication Disposition: HOME SELF-CARE Condition: Good Instructions (If sedation given, give patient instructions): Transient Ischemic Attack (ED), Paresthesia (ED) Is patient prescribed a controlled substance at d/c from ED?: No Referrals: Ursula Corona MD [Primary Care Provider] - 1-2 days
[2020-05-30 01:54] LABS: Basophils # (A) 0.1 k/uL (0-0.2); Basophils % (A) 1 %; Eosinophils # (A) 0.3 k/uL (0-0.7); Eosinophils % (A) 3 %; HCT 44.4 % (34.0-46.0); HGB 15.5 gm/dL (11.4-16.0); Lymphocytes # (A) 4.1 k/uL (1.0-4.8); Lymphocytes % (A) 51 %; MCH 34.1 pg (25.0-35.0); MCV 97.6 fL (80.0-100.0); Mean Platelet Volume 7.3; Monocytes # (A) 0.5 k/uL (0-1.0); Monocytes % (A) 6 %; Neutrophils # (A) 2.9 k/uL (1.3-7.7); Neutrophils % (A) 36 %; Platelet Count 269 k/uL (150-450); RBC 4.55 m/uL (3.80-5.40); RDW 12.4 % (11.5-15.5)
[2020-05-30 01:59] LABS: INR 0.9 (<1.2); Prothrombin Time 9.5 sec (9.0-12.0)
--- NOTE | 2020-05-30 02:01 | CT ---
EXAM: CT Head Without Intravenous Contrast CLINICAL HISTORY: ITS.REASON CT Reason: weakness TECHNIQUE: Axial computed tomography images of the head/brain without intravenous contrast. CTDI is 49.27 mGy and DLP is 1127.40 mGy-cm. This CT exam was performed using one or more of the following dose reduction techniques: automated exposure control, adjustment of the mA and/or kV according to patient size, and/or use of iterative reconstruction technique. COMPARISON: MRI brain 01/10/19. FINDINGS: Brain: No acute intracranial hemorrhage, mass-effect, or edema. Chan- white matter differentiation is preserved. Cortical cerebral volume loss. Ventricles: No hydrocephalus. Bones/joints: Unremarkable. No acute fracture. Soft tissues: Unremarkable. Sinuses: Unremarkable as visualized. No acute sinusitis. Mastoid air cells: Unremarkable as visualized. No mastoid effusion. IMPRESSION: No acute intracranial process.
[2020-05-30 02:11] LABS: ALT 42 U/L (4-34); AST 37 U/L (14-36); African American GFR (CKD) >90 (>60 ml/min/1.73 sqM); Albumin 4.1 g/dL (3.5-5.0); Alkaline Phosphatase 97 U/L (38-126); Anion Gap 8 mmol/L; Blood Urea Nitrogen 22 mg/dL (7-17); Calcium 9.3 mg/dL (8.4-10.2); Carbon Dioxide 29 mmol/L (22-30); Chloride 102 mmol/L (98-107); Creatine Kinase 85 U/L (30-135); Glucose 101 mg/dL (74-99); Magnesium 1.7 mg/dL (1.6-2.3); Non-African American GFR(CKD) >90 (>60 ml/min/1.73 sqM); Phosphorus 4.4 mg/dL (2.5-4.5); Potassium 3.6 mmol/L (3.5-5.1); Sodium 139 mmol/L (137-145); Total Bilirubin 0.3 mg/dL (0.2-1.3); Total Protein 7.1 g/dL (6.3-8.2)
[2020-05-30 02:15] LABS: Alcohol 177 mg/dL
[2020-05-30 02:28] LABS: Appearance,Urine Clear (Clear); Bilirubin,Urine Negative (Negative); Blood,Urine Trace (Negative); Color,Urine Colorless; Glucose,Urine (UA) Negative (Negative); Ketones,Urine Negative (Negative); Leukocyte Esterase,Urine Negative (Negative); Nitrite,Urine Negative (Negative); PH, Urine 6.5 (5.0-8.0); Protein,Urine 2+ (Negative); RBC,Urine 2 /hpf (0-5); Specific Gravity,Urine 1.005 (1.001-1.035); Squamous Epithelial Cell,Urine 1 /hpf (0-4); Urobilinogen,Urine <2.0 mg/dL (<2.0); WBC,Urine 1 /hpf (0-5)
[2020-05-30 02:44] VITALS: BP 128/89; PULSE 72
== END 2020-05-30 02:46 | disposition home or self-care (01) ==
LOC: EC 01:23
DX: G45.9 Transient cerebral ischemic attack, unspecified (principal); R29.700 NIHSS score 0; F10.129 Alcohol abuse with intoxication, unspecified; J44.9 Chronic obstructive pulmonary disease, unspecified; I10 Essential (primary) hypertension; F41.9 Anxiety disorder, unspecified; Z79.51 Long term (current) use of inhaled steroids; Z79.899 Other long term (current) drug therapy; Z87.891 Personal history of nicotine dependence
CPT/HCPCS: 36415; 93005; 83880; 80053; 82550; 83735; 84100; 84484; 85025; 85610; 85730; 81001; 70450; 99284; 96360; G0480; 80320

== ENCOUNTER 2020-06-09 22:18 | Emergency (ER) | payer OTHER ==
[2020-06-09 22:25] VITALS: BP 186/89; PULSE 82; RESP 19; TEMP 98.4
[2020-06-09] MEDS ORDERED: LIDOCAINE 5% PATCH TOPICAL STA (22:49)
[2020-06-09] MEDS ORDERED: MORPHINE SULFATE 4 MG/ML SYRINGE IM STA (22:50)
[2020-06-09] MEDS ORDERED: KETOROLAC 15 MG/ML 1 ML VIAL IM STA (22:50)
--- NOTE | 2020-06-09 23:40 | ED ---
Fall HPI - General Chief Complaint: Fall Stated Complaint: Fall,Rib Pain Time Seen by Provider: 06/09/20 22:28 Source: patient Mode of arrival: wheelchair - History of Present Illness Initial Comments: 59-year-old female patient presents to the emergency department today for evaluation of left rib pain. Patient states that last night she was walking through a dark house when she stepped on a toy and tripped. Sates that she fell landing on her left side. States that she had onset of left rib pain at that time. States the pain has been worsening since the accident. States it is hard to take a deep breath due to pain. Denies any cough or hemoptysis. Denies head injury or loss of consciousness. Denies any other injuries. Patient denies any headache, neck pain, back pain, dizziness, weakness, abdominal pain, nausea, vomiting, or difficulties with bowel movements or urination. - Related Data Home Medications Medication Instructions Recorded Confirmed ALPRAZolam [Xanax] 0.5 - 1 mg PO BID PRN 12/22/19 06/09/20 Metoprolol Tartrate [Lopressor] 50 mg PO BID 12/22/19 06/09/20 hydroCHLOROthiazide [Hydrodiuril] 25 mg PO DAILY 12/22/19 06/09/20 Albuterol Sulfate [Proair Hfa] 1 - 2 puff INHALATION RT-Q6H PRN 06/09/20 06/09/20 HYDROcodone/APAP 10-325MG [[place] 1 tab PO Q6H PRN 06/09/20 06/09/20 10-325] Pantoprazole Sodium [Protonix] 40 mg PO DAILY PRN 06/09/20 06/09/20 Previous Rx's Medication Instructions Recorded Cyclobenzaprine [Flexeril] 10 mg PO TID #15 tab 06/10/20 Ketorolac [Toradol] 10 mg PO Q6HR #12 tab 06/10/20 Lidocaine 5% Patch [Lidoderm] 1 patch TOPICAL DAILY #5 patch 06/10/20 Allergies Allergy/AdvReac Type Severity Reaction Status Date / Time No Known Allergies Allergy Verified 06/09/20 23:06 Review of Systems ROS Statement: Those systems with pertinent positive or pertinent negative responses have been documented in the HPI. ROS Other: All systems not noted in ROS Statement are negative. Past Medical History Past Medical History: Asthma, COPD, CVA/TIA, Hypertension, Pneumonia Additional Past Medical History / Comment(s): pneumonia, anxiety, History of Any Multi-Drug Resistant Organisms: None Reported Past Surgical History: Section Additional Past Surgical History / Comment(s): Fertility surgery Past Anesthesia/Blood Transfusion Reactions: No Reported Reaction Past Psychological History: Anxiety Smoking Status: Former smoker Past Alcohol Use History: Occasional Past Drug Use History: Marijuana - Past Family History Father Family Medical History: Cancer Additional Family Medical History / Comment(s): Father of mesothelioma at the age of 73 yrs. Mother Family Medical History: Cancer Additional Family Medical History / Comment(s): Mother of cancer-pt does not know type of cancer-she was 67yrs old. General Exam General appearance: alert, in no apparent distress, other (This is a well- developed, well-nourished adult female patient in no acute distress. Vital signs upon presentation are temperature 98.4F, pulse 82, respirations 19, blood pressure 186/89, pulse ox 97% on room air.) Neck exam: Present: normal inspection, full ROM, other (Nontender, no step-off, no deformity to firm midline palpation of the posterior cervical spine. Full range of motion without pain or limitation.). Absent: tenderness, meningismus, lymphadenopathy Respiratory exam: Present: normal lung sounds bilaterally, chest wall tenderness (There is left lateral chest wall tenderness. Over the anterolateral lateral lower ribs. No skin changes. No bony deformity or step-off noted.). Absent: respiratory distress, wheezes, rales, rhonchi, stridor Cardiovascular Exam: Present: regular rate, normal rhythm, normal heart sounds. Absent: systolic murmur, diastolic murmur, rubs, gallop, clicks GI/Abdominal exam: Present: soft, normal bowel sounds. Absent: distended, tenderness, guarding, rebound, rigid Back exam: Present: normal inspection, other (Nontender, no step-off, no deformity to firm midline palpation of the thoracic and lumbar vertebrae. Full range of motion without pain or limitation.). Absent: vertebral tenderness Neurological exam: Present: alert, oriented X3, CN II-XII intact Psychiatric exam: Present: normal affect, normal mood Skin exam: Present: warm, dry, intact, normal color. Absent: rash Course Vital Signs 06/09/20 22:21 Temperature 98.4 F Pulse Rate 82 Respiratory 19 Rate Blood Pressure 186/89 O2 Sat by Pulse 97 Oximetry Medical Decision Making - Medical Decision Making 59-year-old female patient presents to the emergency department today for evaluation of left rib pain after a fall last night. Physical examination did reveal anterior lateral rib pain over the lower ribs. Lungs are clear to auscultation. Vital signs within normal ranges though blood pressure was elevated probably due to pain. Chest x-ray with left sided ribs were obtained and showed a left eighth rib fracture. Patient was given incentive spirometry. Given pain medications here. She be discharged with pain medication prescriptions. They're instructed to follow-up with the primary care physician for recheck in 1-2 days. Return parameters were discussed in detail. She verbalizes understanding and agrees with this plan - Radiology Data Radiology results: report reviewed, image reviewed Left ribs and chest x-ray were obtained. Report was reviewed in its entirety. Impression by Dr. Lima shows acute fracture of the left eighth rib. No cardiopulmonary disease. Disposition Clinical Impression: Left rib fracture Disposition: HOME SELF-CARE Condition: Good Instructions (If sedation given, give patient instructions): How to Use an Incentive Spirometer (ED), Rib Fracture (ED) Additional Instructions: Take medications as directed. Maintain lifting restrictions on your work note. Follow-up through primary care physician for recheck in 1-2 days. Return to the emergency department for any new, worsening, or concerning symptoms Prescriptions: Cyclobenzaprine [Flexeril] 10 mg PO TID #15 tab Lidocaine 5% Patch [Lidoderm] 1 patch TOPICAL DAILY #5 patch Ketorolac [Toradol] 10 mg PO Q6HR #12 tab Is patient prescribed a controlled substance at d/c from ED?: No Referrals: Ursula Corona MD [Primary Care Provider] - 1-2 days Time of Disposition: 00:15
--- NOTE | 2020-06-09 23:45 | XR ---
EXAMINATION TYPE: XR ribs LT w pa chest xray DATE OF EXAM: 06/09/2020 COMPARISON: Chest x-ray 01/19/2018 HISTORY: Chest pain TECHNIQUE: 5 views FINDINGS: Heart and mediastinum are normal. Lungs are clear of infiltrate. There is no pleural effusi on or pneumothorax. Left ribs show nondisplaced fracture anterior left eighth rib. The remainder of e xam is unremarkable IMPRESSION: There is an acute fracture left eighth rib. No cardiopulmonary disease
== END 2020-06-10 00:23 | disposition home or self-care (01) ==
LOC: EC 22:18
DX: S22.32XA Fracture of one rib, left side, initial encounter for closed fracture (principal); I10 Essential (primary) hypertension; J44.9 Chronic obstructive pulmonary disease, unspecified; F41.9 Anxiety disorder, unspecified; Z79.899 Other long term (current) drug therapy; Z86.73 Personal history of transient ischemic attack (TIA), and cerebral infarction without residual deficits; Z87.891 Personal history of nicotine dependence; W18.31XA Fall on same level due to stepping on an object, initial encounter
CPT/HCPCS: 71101; 99283; 96372 ×2; J2270; J1885

== ENCOUNTER 2021-03-06 15:01 | Observation (INO) | payer OTHER ==
[2021-03-06] MEDS ORDERED: SODIUM CHLORIDE 0.9% 1,000 ML IV STA (15:23)
[2021-03-06] MEDS ORDERED: ONDANSETRON 4 MG/2 ML VIAL IVP STA (15:23)
--- NOTE | 2021-03-06 15:31 | ED ---
General Adult HPI - General Source: patient, RN notes reviewed Mode of arrival: wheelchair Limitations: no limitations <Marlee Alfaro - Last Filed: 03/06/21 23:08> <Taiwo Lara - Last Filed: 03/07/21 00:08> - General Chief complaint: Dizziness Stated complaint: Dizziness Time Seen by Provider: 03/06/21 15:10 - History of Present Illness Initial comments: 60-year-old female presents to the emergency department for evaluation of dizziness, onset this morning. States her dizziness began as soon as she fabien from bed. Patient describes her experience of dizziness as a room tilting sensation accompanied by nausea, blurred vision, and ringing in the ears. Reports symptoms occur with movement of her head and wane rest. Denies strenuous activity today. Patient states this first occurred on Thursday at the end of the busy shift at work. Patient states she was able to drive herself home without difficulty and her symptoms resolved with rest. 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 Chronic medical conditions include hypertension and lung disease secondary to smoking; also reports chronic back pain. Patient denies headache, chest pain, shortness of breath, vomiting, diarrhea, constipation, dysuria, or hematuria. (Marlee Alfaro) - Related Data Home Medications Medication Instructions Recorded Confirmed ALPRAZolam [Xanax] 1 mg PO BID PRN 12/22/19 03/06/21 hydroCHLOROthiazide [Hydrodiuril] 25 mg PO BID@0900,1700 12/22/19 03/06/21 HYDROcodone/APAP 10-325MG [[place] 1 tab PO TID 06/09/20 03/06/21 10-325] Pantoprazole Sodium [Protonix] 40 mg PO HS 06/09/20 03/06/21 Fluticasone/Umeclidin/Vilanter 1 puff INHALATION RT-DAILY 03/06/21 03/06/21 [Trelegy Ellipta 100-62.5-25] Metoprolol Succinate (ER) [Toprol 50 mg PO DAILY 03/06/21 03/06/21 Xl] Allergies Allergy/AdvReac Type Severity Reaction Status Date / Time No Known Allergies Allergy Verified 03/06/21 16:49 Review of Systems ROS Other: All systems not noted in ROS Statement are negative. <Marlee Alfaro - Last Filed: 03/06/21 23:08> ROS Other: All systems not noted in ROS Statement are negative. <Taiwo Lara - Last Filed: 03/07/21 00:08> ROS Statement: Those systems with pertinent positive or pertinent negative responses have been documented in the HPI. Past Medical History Past Medical History: Asthma, COPD, CVA/TIA, Hypertension, Pneumonia Additional Past Medical History / Comment(s): pneumonia, anxiety, History of Any Multi-Drug Resistant Organisms: None Reported Past Surgical History: Section Additional Past Surgical History / Comment(s): Fertility surgery Past Anesthesia/Blood Transfusion Reactions: No Reported Reaction Past Psychological History: Anxiety Smoking Status: Former smoker Past Alcohol Use History: Occasional Past Drug Use History: Marijuana - Past Family History Father Family Medical History: Cancer Additional Family Medical History / Comment(s): Father of mesothelioma at the age of 73 yrs. Mother Family Medical History: Cancer Additional Family Medical History / Comment(s): Mother of cancer-pt does not know type of cancer-she was 67yrs old. <Marlee Alfaro - Last Filed: 03/06/21 23:08> General Exam Limitations: no limitations (This is a well-developed, well-nourished female in no acute distress. Initial temperature 98.3, pulse 82, respiration 16, blood pressure 174/86, pulse ox 98% on room air.) General appearance: alert, in no apparent distress Eye exam: Present: normal appearance, EOMI. Absent: nystagmus Neck exam: Present: normal inspection. Absent: tenderness, meningismus, lymphadenopathy Respiratory exam: Present: normal lung sounds bilaterally. Absent: respiratory distress, wheezes, rales, rhonchi, stridor Cardiovascular Exam: Present: regular rate, normal rhythm, normal heart sounds. Absent: systolic murmur, diastolic murmur, rubs, gallop, clicks GI/Abdominal exam: Present: soft, normal bowel sounds. Absent: distended, tende rness, guarding, rebound, rigid Left Neurovascular tendon exam: Present: no vascular compromise (+2 pedal pulse). Absent: pulse deficit, abnormal cap refill, motor deficit, sensory deficit, pallor Right Neurovascular tendon exam: Present: no vascular compromise (+2 pedal pulse). Absent: pulse deficit, abnormal cap refill, motor deficit, sensory deficit, pallor Neurological exam: Present: alert, oriented X3, CN II-XII intact Expanded Patient oriented to: Present: person, place, time Speech: Present: fluid speech Cranial nerves: EOM's Intact: Normal Cerebellar function: Finger to Nose: Normal Motor strength exam: RUE: 5, LUE: 5, RLE: 5, LLE: 5 Eye Response: (4) open spontaneously Motor Response: (6) obeys commands Verbal Response: (5) oriented Psychiatric exam: Present: normal affect, anxious Skin exam: Present: warm, dry, intact, normal color. Absent: rash <Marlee Alfaro - Last Filed: 03/06/21 23:08> Course <Marlee Alfaro - Last Filed: 03/06/21 23:08> Vital Signs 03/06/21 03/06/21 03/06/21 15:03 18:00 19:36 Temperature 98.3 F Pulse Rate 82 79 62 Respiratory 16 16 20 Rate Blood Pressure 174/86 150/78 169/76 O2 Sat by Pulse 98 99 98 Oximetry - Reevaluation(s) Reevaluation #1: 03/06/21 17:56 Patient ambulates to the bathroom without difficulty. Denies any dizziness currently. 03/06/21 20:48 Patient's daughter present at bedside. Updated patient on results. Discussed possibility of admission for further evaluation and treatment. Patient and daughter wished to discuss further. 03/06/21 22:00 Patient agreeable to stay. Will speak to admitting physician and neurology. (Marlee Alfaro) Medical Decision Making - Lab Data Result diagrams: 03/06/21 16:07 03/06/21 16:07 - Radiology Data Radiology results: report reviewed, image reviewed <Marlee Alfaro - Last Filed: 03/06/21 23:08> - Lab Data Result diagrams: 03/06/21 16:07 03/06/21 16:07 <Taiwo Lara - Last Filed: 03/07/21 00:08> - Medical Decision Making 60-year-old female with a history of hypertension and chronic lung disease presents to the emergency department for evaluation of dizziness that worsens with position change and movement of head. Patient is neurologically intact without vision changes or headache. Patient ambulates without difficulty in a smooth, coordinated fashion. EKG was obtained and shows normal sinus rhythm. Laboratory findings were unremarkable. Chest x-ray shows no acute process. CT of the brain was suboptimal due to artifact. Patient did receive 1 L of IV fluid and meclizine with minimal change in symptoms. This patient's case was discussed with my attending Dr. Lara. Based on patient's persistent vertiginous symptoms, it was recommended that patient be admitted for neurology consult and MRI of the brain. Patient was agreeable to this plan of care. Spoke with Espinoza Roach NP who accepts this patient on behalf of [facility]. Contacted Dr. Apple regarding consult as well. (Marlee Alfaro) - Lab Data Lab Results 03/06/21 03/06/21 03/06/21 Range/Units 16:07 16:07 16:07 WBC 5.0 (3.8-10.6) k/uL RBC 4.47 (3.80-5.40) m/uL Hgb 15.7 (11.4-16.0) gm/dL Hct 44.5 (34.0-46.0) % MCV 99.6 (80.0-100.0) fL MCH 35.1 H (25.0-35.0) pg MCHC 35.2 (31.0-37.0) g/dL RDW 13.0 (11.5-15.5) % Plt Count 243 (150-450) k/uL MPV 7.6 Neutrophils % 50 % Lymphocytes % 37 % Monocytes % 6 % Eosinophils % 2 % Basophils % 1 % Neutrophils # 2.5 (1.3-7.7) k/uL Lymphocytes # 1.8 (1.0-4.8) k/uL Monocytes # 0.3 (0-1.0) k/uL Eosinophils # 0.1 (0-0.7) k/uL Basophils # 0.0 (0-0.2) k/uL Sodium 134 L (137-145) mmol/L Potassium 3.7 (3.5-5.1) mmol/L Chloride 100 (98-107) mmol/L Carbon Dioxide 26 (22-30) mmol/L Anion Gap 8 mmol/L BUN 13 (7-17) mg/dL Creatinine 0.46 L (0.52-1.04) mg/dL Est GFR (CKD-EPI)AfAm >90 (>60 ml/min/1.73 sqM) Est GFR (CKD-EPI)NonAf >90 (>60 ml/min/1.73 sqM) Glucose 96 (74-99) mg/dL Calcium 9.8 (8.4-10.2) mg/dL Troponin I (0.000-0.034) ng/mL Urine Color Light Yellow Urine Appearance Cloudy H (Clear) Urine pH 6.0 (5.0-8.0) Ur Specific [place] 1.007 (1.001-1.035) Urine Protein 1+ H (Negative) Urine Glucose (UA) Negative (Negative) Urine Ketones Negative (Negative) Urine Blood Negative (Negative) Urine Nitrite Negative (Negative) Urine Bilirubin Negative (Negative) Urine Urobilinogen <2.0 (<2.0) mg/dL Ur Leukocyte Esterase Negative (Negative) Urine RBC 5 (0-5) /hpf Urine WBC 26 H (0-5) /hpf Ur Squamous Epith Cells 1 (0-4) /hpf Coronavirus (PCR) (Not Detectd) 03/06/21 03/06/21 Range/Units 16:07 22:50 WBC (3.8-10.6) k/uL RBC (3.80-5.40) m/uL Hgb (11.4-16.0) gm/dL Hct (34.0-46.0) % MCV (80.0-100.0) fL MCH (25.0-35.0) pg MCHC (31.0-37.0) g/dL RDW (11.5-15.5) % Plt Count (150-450) k/uL MPV Neutrophils % % Lymphocytes % % Monocytes % % Eosinophils % % Basophils % % Neutrophils # (1.3-7.7) k/uL Lymphocytes # (1.0-4.8) k/uL Monocytes # (0-1.0) k/uL Eosinophils # (0-0.7) k/uL Basophils # (0-0.2) k/uL Sodium (137-145) mmol/L Potassium (3.5-5.1) mmol/L Chloride (98-107) mmol/L Carbon Dioxide (22-30) mmol/L Anion Gap mmol/L BUN (7-17) mg/dL Creatinine (0.52-1.04) mg/dL Est GFR (CKD-EPI)AfAm (>60 ml/min/1.73 sqM) Est GFR (CKD-EPI)NonAf (>60 ml/min/1.73 sqM) Glucose (74-99) mg/dL Calcium (8.4-10.2) mg/dL Troponin I <0.012 (0.000-0.034) ng/mL Urine Color Urine Appearance (Clear) Urine pH (5.0-8.0) Ur Specific [place] (1.001-1.035) Urine Protein (Negative) Urine Glucose (UA) (Negative) Urine Ketones (Negative) Urine Blood (Negative) Urine Nitrite (Negative) Urine Bilirubin (Negative) Urine Urobilinogen (<2.0) mg/dL Ur Leukocyte Esterase (Negative) Urine RBC (0-5) /hpf Urine WBC (0-5) /hpf Ur Squamous Epith Cells (0-4) /hpf Coronavirus (PCR) Not Detected (Not Detectd) - Radiology Data Two-view chest x-ray was obtained. Report was reviewed in its entirety. Impression per Dr. Grigsby is no acute process. Correlate for asthma or COPD. CT of the brain without contrast was obtained. Report was reviewed in its entirety. Impression per Dr. Monzon was suboptimal evaluation of the brainstem, posterior fossa, and bilateral temporal lobes due to streak through no gross acute intracranial abnormalities are identified. Low attenuating area in the region of the right temporal lobe is favored to be secondary to artifact. Clinical correlation recommended. (Marlee Alfaro) Disposition Decision Date: 03/06/21 Decision Time: 21:57 <Marlee Alfaro - Last Filed: 03/06/21 23:08> <Taiwo Lara - Last Filed: 03/07/21 00:08> Clinical Impression: Dizziness of unknown etiology Disposition: ADMITTED IP TO THIS [facility] Condition: Serious
--- NOTE | 2021-03-06 15:51 | XR ---
EXAMINATION TYPE: XR chest 2V DATE OF EXAM: 03/06/2021 COMPARISON: 06/09/2020 TECHNIQUE: PA and lateral views submitted. HISTORY: Dizziness and nausea FINDINGS: The lungs are clear and there is no pneumothorax, pleural effusion, or focal pneumonia. Atheroscler otic change of the aorta. Hyperinflation of the lungs. IMPRESSION: 1. No acute process. Correlate for asthma or COPD.
[2021-03-06 16:18] LABS: Basophils % (A) 1 %; Eosinophils # (A) 0.1 k/uL (0-0.7); Eosinophils % (A) 2 %; HCT 44.5 % (34.0-46.0); HGB 15.7 gm/dL (11.4-16.0); Lymphocytes # (A) 1.8 k/uL (1.0-4.8); Lymphocytes % (A) 37 %; MCH 35.1 pg (25.0-35.0); MCHC 35.2 g/dL (31.0-37.0); MCV 99.6 fL (80.0-100.0); Mean Platelet Volume 7.6; Monocytes # (A) 0.3 k/uL (0-1.0); Monocytes % (A) 6 %; Neutrophils # (A) 2.5 k/uL (1.3-7.7); Neutrophils % (A) 50 %; Platelet Count 243 k/uL (150-450); RBC 4.47 m/uL (3.80-5.40)
[2021-03-06 16:24] LABS: Appearance,Urine Cloudy (Clear); Bilirubin,Urine Negative (Negative); Blood,Urine Negative (Negative); Color,Urine Light Yellow; Glucose,Urine (UA) Negative (Negative); Ketones,Urine Negative (Negative); Leukocyte Esterase,Urine Negative (Negative); Nitrite,Urine Negative (Negative); Protein,Urine 1+ (Negative); RBC,Urine 5 /hpf (0-5); Specific Gravity,Urine 1.007 (1.001-1.035); Squamous Epithelial Cell,Urine 1 /hpf (0-4); Urobilinogen,Urine <2.0 mg/dL (<2.0); WBC,Urine 26 /hpf (0-5)
[2021-03-06 16:35] LABS: African American GFR (CKD) >90 (>60 ml/min/1.73 sqM); Anion Gap 8 mmol/L; Blood Urea Nitrogen 13 mg/dL (7-17); Calcium 9.8 mg/dL (8.4-10.2); Carbon Dioxide 26 mmol/L (22-30); Chloride 100 mmol/L (98-107); Glucose 96 mg/dL (74-99); Non-African American GFR(CKD) >90 (>60 ml/min/1.73 sqM); Potassium 3.7 mmol/L (3.5-5.1); Sodium 134 mmol/L (137-145)
[2021-03-06] MEDS ORDERED: MECLIZINE 12.5 MG TAB PO STA (17:13)
[2021-03-06] MEDS ORDERED: ACETAMINOPHEN TAB 325 MG TAB PO STA (18:16)
--- NOTE | 2021-03-06 20:27 | CT ---
EXAMINATION TYPE: CT brain wo con DATE OF EXAM: 03/06/2021 COMPARISON: 05/30/2020 HISTORY: dizziness, vertigo TECHNIQUE: CT scan of the head performed without contrast CT DLP: 1123.4 mGycm Automated exposure control for dose reduction was used. FINDINGS: No acute intracranial hemorrhage, midline shift or mass effect. Chan-white matter differentiation is preserved. There is artifact in the region of the brainstem, posterior fossa and bilateral temporal lobes which limits evaluation and causes a low attenuating appearance to the right temporal lobe inferiorly. No acute orbital, osseous or soft tissue abnormalities seen. Paranasal sinuses and mastoid air cells are well aerated. 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 IMPRESSION: SUBOPTIMAL EVALUATION OF THE BRAIN STEM, POSTERIOR FOSSA AND BILATERAL TEMPORAL LOBES DUE TO STREAK T PADMINI NO GROSS ACUTE INTRACRANIAL ABNORMALITIES ARE IDENTIFIED, LOW ATTENUATING AREA IN THE REGION OF THE RIGHT TEMPORAL LOBE IS FAVORED TO BE SECONDARY TO ARTIFACT. CLINICAL CORRELATION RECOMMENDED
[2021-03-06] MEDS ORDERED: ACETAMINOPHEN TAB 325 MG TAB PO PRN (21:50)
[2021-03-06] MEDS ORDERED: ALPRAZolam 1 MG TAB PO PRN (23:05)
[2021-03-06] MEDS ORDERED: NALOXONE 0.4 MG/ML 1 ML VIAL IV PRN (23:42)
[2021-03-07 07:23] LABS: Basophils % (A) 1 %; Eosinophils # (A) 0.1 k/uL (0-0.7); Eosinophils % (A) 3 %; HCT 40.3 % (34.0-46.0); HGB 13.7 gm/dL (11.4-16.0); Lymphocytes # (A) 1.6 k/uL (1.0-4.8); Lymphocytes % (A) 35 %; MCH 34.5 pg (25.0-35.0); MCHC 33.9 g/dL (31.0-37.0); MCV 101.8 fL (80.0-100.0); Mean Platelet Volume 8.1; Monocytes # (A) 0.3 k/uL (0-1.0); Monocytes % (A) 7 %; Neutrophils # (A) 2.4 k/uL (1.3-7.7); Neutrophils % (A) 52 %; Platelet Count 233 k/uL (150-450); RBC 3.96 m/uL (3.80-5.40); RDW 12.4 % (11.5-15.5); WBC 4.7 k/uL (3.8-10.6)
[2021-03-07 07:36] LABS: African American GFR (CKD) >90 (>60 ml/min/1.73 sqM); Anion Gap 3 mmol/L; Blood Urea Nitrogen 10 mg/dL (7-17); Carbon Dioxide 29 mmol/L (22-30); Chloride 104 mmol/L (98-107); Glucose 94 mg/dL (74-99); Non-African American GFR(CKD) >90 (>60 ml/min/1.73 sqM); Potassium 4.3 mmol/L (3.5-5.1); Sodium 136 mmol/L (137-145)
[2021-03-07] MEDS ORDERED: MECLIZINE 25 MG TAB PO PRN (08:04)
[2021-03-07] MEDS: METOPROLOL SUCCINATE (ER) 50 MG TAB.ER.24H PO SCH (08:16)
[2021-03-07] MEDS: HYDROcodone/APAP 10-325MG 1 EACH TAB PO SCH ×3 (08:16→21:57)
[2021-03-07] MEDS: SYMBICORT 80-4.5 MCG INHALER INHALATION SCH ×2 (08:38→19:18)
[2021-03-07] MEDS: IPRATROPIUM 0.5 MG/2.5 ML NEBU INHALATION SCH ×4 (08:38→19:19)
[2021-03-07 08:44] LABS: Albumin/Globulin Ratio 1.2; Bilirubin,Unconjugated 0.1 mg/dL (0.0-1.1); Globulin 2.6 g/dL; Total Bilirubin 0.3 mg/dL (0.2-1.3); Total Protein 5.6 g/dL (6.3-8.2)
[2021-03-07] MEDS ORDERED: hydroCHLOROthiazide 25 MG TAB PO SCH (09:00)
[2021-03-07] MEDS ORDERED: ASPIRIN 81 MG PO STA (10:48)
--- NOTE | 2021-03-07 11:09 | P.CNNES ---
History of Present Illness Consult date: 03/07/21 Requesting physician: Marlee Alfaro Reason for Consult: Persistent dizziness after IVF and Meclizine History of Present Illness: Patient is a 60-year-old female with history of hypertension, hyperlipidemia, X tobacco use came to the hospital yesterday at 3:01 PM for evaluation of vertigo. Patient states that her symptoms started on Thursday night, 03/02/2021 when she was at work. She works at her restaurant, which gets very busy. Patient states that while at work she remembers going outside to take fresh air, came back in the restaurant, when she felt everything was a tilt in the room started moving, strange sensation, that lasted for about 5 minutes. She attributed the symptoms to being very exhausted, working extra hours that night. She sat down, drank a soda pop and the symptoms went away. She notices that for recent light was bothering her more than usual. She went home and went to bed. Next morning on Thursday and then on Thursday she was fine. On Thursday she worked at the [employer]. When she was driving back home, felt that she could not focused driving. Otherwise she was fine. At night while walking she felt her balance was slightly off, as if her equilibrium was slightly off. She blamed it on lack of sleep. However on Thursday, yesterday morning when she woke up, and as soon as her feet hit the floor, she felt as if the legs buckled up and she leaned to the wall. She went to the washroom, came back to the bed and again till 9:30 AM. She went to the kitchen and felt everything started moving she has to hold onto the john to go to the bathroom, otherwise felt will fall. Everything was moving. She felt she was going sideways and backwards. The symptoms lasted all day. Therefore she called her daughter, who brought her to the ER. She has been having nausea but no vomiting. Denies any double vision, facial droop or slurred speech. On 03/02/2021, she had an episode of transient pins and needle sensation of the entire left arm that lasted for <5 minutes. She has history of carpal tunnel syndrome, but only involves the hand. This pins and needle sensation was different as compared to CTS. Patient's vitals on arrival blood pressure 174/86, pulse rate 82, temperature 98.3. Blood test shows normal CBC with slightly elevated MCV 99.6. Sodium 134 potassium 3.7, normal renal functions. Troponin is negative. Hepatic panel with normal AST, ALT is borderline 38. UA is cloudy, with 26 WBCs negative leukocyte Estrace. Coronavirus PCR negative. Patient's last hemoglobin A1c 6.2 on 10/20/2016. Computed tomography scan of the head shows suboptimal evaluation of the brainstem, posterior fossa and bilateral temporal lobes due to streak artifact, though no gross acute intracranial abnormalities are identified. Low attenuation area in the region of the right temporal lobe is favored to be secondary to artifact. Clinical correlation is recommended. On my review, the visualized paranasal sinuses and external auditory canal are clear. Chest x-ray showed no acute process. Correlate for asthma or COPD. On review of records, patient had an MRI of the brain with and without contrast on 01/10/2019 for "headache", which revealed a single small focus of increased signal in the left parietal lobe white matter. Otherwise negative exam. MRI of the cervical spine from 04/30/2016 showed multilevel degenerative changes in the mid to lower cer vical spine, most pronounced finding noted at C5 6, where there is right paracentral/foraminal disc protrusion with marginal spurring effacing the anterior lateral thecal sac and causing advanced right-sided neural foraminal narrowing. MRI of the lumbar spine from 02/14/2020 shows degenerative disc disease, facet arthropathy, foraminal encroachment, similar to prior exam. Patient has history of smoking 1 pack per day for 30 years, quit in 2017. She drinks couple glasses of wine 3 times a week. She denies diabetes. She has hypertension since age 42. She has hyperlipidemia. She does not take any antiplatelet medication at home. Review of Systems Frequent sweating, fatigue, ankle pain, low back pain, gets pain medication. Patient had carpal tunnel syndrome with numbness of the left hand intermittent. Denies any chest pain shortness of breath wheezing or cough. Denies any diarrhea or abdominal pain. She does have some nausea but no vomiting. No double vision. No hearing loss. Fever. No rash. Past Medical History Past Medical History: Asthma, COPD, CVA/TIA, Hypertension, Pneumonia Additional Past Medical History / Comment(s): pneumonia, anxiety, History of Any Multi-Drug Resistant Organisms: None Reported Past Surgical History: Section Additional Past Surgical History / Comment(s): Fertility surgery Past Anesthesia/Blood Transfusion Reactions: No Reported Reaction Past Psychological History: Anxiety Additional Psychological History / Comment(s): Pt resides alone. She is independent. Smoking Status: Former smoker Past Alcohol Use History: Occasional Additional Past Alcohol Use History / Comment(s): Pt states she started smoking in 1989 and quit last Tuesday, October 11, 2016. Past Drug Use History: None Reported, Marijuana - Past Family History Father Family Medical History: Cancer Additional Family Medical History / Comment(s): Father of mesothelioma at the age of 73 yrs. Mother Family Medical History: Cancer Additional Family Medical History / Comment(s): Mother of cancer-pt does not know type of cancer-she was 67yrs old. Medications and Allergies Home Medications Medication Instructions Recorded Confirmed Type ALPRAZolam [Xanax] 1 mg PO BID PRN 12/22/19 03/06/21 History hydroCHLOROthiazide [Hydrodiuril] 25 mg PO BID@0900,1700 12/22/19 03/06/21 History HYDROcodone/APAP 10-325MG [[place] 1 tab PO TID 06/09/20 03/06/21 History 10-325] Pantoprazole Sodium [Protonix] 40 mg PO HS 06/09/20 03/06/21 History Fluticasone/Umeclidin/Vilanter 1 puff INHALATION RT-DAILY 03/06/21 03/06/21 History [Trelegy Ellipta 100-62.5-25] Metoprolol Succinate (ER) [Toprol 50 mg PO DAILY 03/06/21 03/06/21 History Xl] Allergies Allergy/AdvReac Type Severity Reaction Status Date / Time No Known Allergies Allergy Verified 03/06/21 16:49 Physical Examination - Vital Signs Vital Signs: Vital Signs Temp Pulse Pulse Resp BP BP Pulse Ox 03/07/21 08:52 72 03/07/21 08:39 72 03/07/21 08:00 68 16 03/07/21 07:00 97.4 F L 59 L 16 149/81 97 03/07/21 03:18 97.6 F 68 16 146/86 95 03/07/21 02:24 67 20 03/06/21 19:36 62 20 169/76 98 03/06/21 18:00 79 16 150/78 99 03/06/21 15:03 98.3 F 82 16 174/86 98 Intake and Output 03/06/21 03/07/21 03/07/21 22:59 06:59 14:59 Intake Total 1000 Balance 1000 Intake: Intake, IV Titration 1000 Amount Sodium Chloride 0.9% 1, 1000 000 ml @ 999 mls/hr IV . Q1H1M STA Rx#:[id number] Oral 0 Other: Voiding Method Toilet # Voids 1 Weight 83.915 kg 83.915 kg Patient is a middle aged female, in no acute distress. Patient is alert awake oriented to time place and person. Speech and language functions are normal. Attention, concentration and fund of knowledge is adequate. No aphasia or dysarthria. On cranial examination, pupils are equal, round and reacting to light, visual joe are full on confrontation, extraocular muscles are intact with no nystagmus. Face is symmetric, tongue protrudes to the midline. Palatal elevation and sensation normal, hearing and shoulder shrug normal, facial sensation normal. Shoulder shrug normal. On muscle strength testing, there is no pronator drift and the strength is normal in arms and legs distally and proximally. Deep tendon reflexes are 2+ in the upper limbs, 3 at the knees, 2 ankles and plantars downgoing bilaterally. No clonus. Sensory to touch is equal with no neglect. Cerebellar function showed no ataxia for [id number] testing. No dysdiadochokinesia. Tone and bulk of muscles normal. Gait normal. At present patient is not dizzy, not feeling lightheaded while walking. On general examination, there is no carotid bruit or murmur, S1-S2 audible. Abdomen is soft nontender. Chest is clear. Peripheral pulses are present. No edema. Results - Laboratory Findings CBC and BMP: 03/07/21 07:07 03/07/21 07:07 Abnormal Lab Findings: Abnormal Labs 03/06/21 03/06/21 03/06/21 16:07 16:07 16:07 MCV MCH 35.1 H Sodium 134 L Creatinine 0.46 L ALT Total Protein Albumin Urine Appearance Cloudy H Urine Protein 1+ H Urine WBC 26 H 03/07/21 03/07/21 03/07/21 07:07 07:07 07:07 MCV 101.8 H MCH Sodium 136 L Creatinine ALT 38 H Total Protein 5.6 L Albumin 3.0 L Urine Appearance Urine Protein Urine WBC Assessment and Plan Assessment: * Recurrent transient episodes (x3) of vertigo, gait imbalance, and one episode of transient tingling of the left arm. Rule out stroke/TIA. Peripheral vestibular dysfunction also in the differential at least for vertigo. * Hypertension * Hyperlipidemia * X tobacco use * Macrocytosis Plan: * Patient needs workup for possible TIA. Patient will undergo an MRI of the brain to rule out an acute stroke. MRA of the head to rule out any intracranial vascular stenosis. * Carotid Doppler * 2-D echo with bubble study * Fasting lipid panel, hemoglobin A1c * B12, folate * Start aspirin 325 mg daily, including now. * Telemetry monitoring. * We will follow.
[2021-03-07] MEDS ORDERED: LORazepam 2 MG/ML INJ IV STA (11:31)
--- NOTE | 2021-03-07 11:47 | P.HPIM ---
History of Present Illness This is a pleasant 60 years old female with past medical history of Asthma, COPD, CVA/TIA, Hypertension, Pneumonia. Patient presents because of 3 episodes of dizziness. First one happened Thursday night and lasted for 2 minutes, another one was Thursday night and lasted 2 hours, and 3rd one was yesterday morning when his stay and lasted longer so she decided to come to emergency room. During these episodes she feels the room was moving and sometimes is pending, she cannot walk and she has to hold on other people or counter so she does not fall. 1 times she has also numbness in her left arm during the first episode. Currently she denies chest pain or dyspnea. No coughing. No abdominal pain. No urinary symptoms. No fever. She is ex-smoker quit in 2017, occasional drinks alcohol. No illicit tracts Vital signs stable, blood pressure on the high side 146/86. Labs including CBC, BMP are unremarkable. Troponin is negative. Urine analysis showed 1+ protein. Coronavirus not detected. Chest x-ray: No acute process. Asthma/COPD CT of the brain suboptimal evaluation of the brain stem, posterior fossa and bilateral temporal lobes due to streak though no gross acute intracranial abnormality are identified suspected artifact. In the emergency room patient received Tylenol, Antivert, Zofran and normal saline Visit within urology team consultation EKG showing normal sinus rhythm at 73 with QTC [address]-T changes. Review of Systems CONSTITUTIONAL: No fever, no malaise, no fatigue. HEENT: No recent visual problems or hearing problems. Denied any sore throat. CARDIOVASCULAR: No orthopnea, PND, no palpitations, no syncope. PULMONARY: No shortness of breath, no cough, no hemoptysis. GASTROINTESTINAL: No diarrhea, no nausea, no vomiting, no abdominal pain. Normoactive bowel sounds. NEUROLOGICAL: No headaches, no weakness, no numbness. HEMATOLOGICAL: Denies any bleeding or petechiae. GENITOURINARY: Denies any burning micturition, frequency, or urgency. MUSCULOSKELETAL/RHEUMATOLOGICAL: Denies any joint pain, swelling, or any muscle pain. ENDOCRINE: Denies any polyuria or polydipsia. Past Medical History Past Medical History: Asthma, COPD, CVA/TIA, Hypertension, Pneumonia Additional Past Medical History / Comment(s): pneumonia, anxiety, History of Any Multi-Drug Resistant Organisms: None Reported Past Surgical History: Section Additional Past Surgical History / Comment(s): Fertility surgery Past Anesthesia/Blood Transfusion Reactions: No Reported Reaction Past Psychological History: Anxiety Additional Psychological History / Comment(s): Pt resides alone. She is independent. Smoking Status: Former smoker Past Alcohol Use History: Occasional Additional Past Alcohol Use History / Comment(s): Pt states she started smoking in 1989 and quit last Thursday, October 11, 2016. Past Drug Use History: None Reported, Marijuana - Past Family History Father Family Medical History: Cancer Additional Family Medical History / Comment(s): Father of mesothelioma at the age of 73 yrs. Mother Family Medical History: Cancer Additional Family Medical History / Comment(s): Mother of cancer-pt does not know type of cancer-she was 67yrs old. Medications and Allergies Home Medications Medication Instructions Recorded Confirmed Type ALPRAZolam [Xanax] 1 mg PO BID PRN 12/22/19 03/06/21 History hydroCHLOROthiazide [Hydrodiuril] 25 mg PO BID@0900,1700 12/22/19 03/06/21 History HYDROcodone/APAP 10-325MG [[place] 1 tab PO TID 06/09/20 03/06/21 History 10-325] Pantoprazole Sodium [Protonix] 40 mg PO HS 06/09/20 03/06/21 History Fluticasone/Umeclidin/Vilanter 1 puff INHALATION RT-DAILY 03/06/21 03/06/21 History [Trelegy Ellipta 100-62.5-25] Metoprolol Succinate (ER) [Toprol 50 mg PO DAILY 03/06/21 03/06/21 History Xl] Allergies Allergy/AdvReac Type Severity Reaction Status Date / Time No Known Allergies Allergy Verified 03/06/21 16:49 Physical Exam Vitals: Vital Signs Temp Pulse Pulse Resp BP BP Pulse Ox 03/07/21 03:18 97.6 F 68 16 146/86 95 03/07/21 02:24 67 20 03/06/21 19:36 62 20 169/76 98 03/06/21 18:00 79 16 150/78 99 03/06/21 15:03 98.3 F 82 16 174/86 98 Intake and Output 03/06/21 03/07/21 03/07/21 22:59 06:59 14:59 Intake Total 1000 Balance 1000 Intake: Intake, IV Titration 1000 Amount Sodium Chloride 0.9% 1, 1000 000 ml @ 999 mls/hr IV . Q1H1M STA Rx#:[id number] Oral 0 Other: # Voids 1 Weight 83.915 kg 83.915 kg GENERAL: The patient is alert and oriented x3, not in any acute distress. Well developed, well nourished. HEENT: Pupils are round and equally reacting to light. EOMI. No scleral icterus. No conjunctival pallor. Normocephalic, atraumatic. No pharyngeal erythema. No thyromegaly. CARDIOVASCULAR: S1 and S2 present. No murmurs, rubs, or gallops. PULMONARY: Chest is clear to auscultation, no wheezing or crackles. ABDOMEN: Soft, nontender, nondistended, normoactive bowel sounds. No palpable organomegaly. MUSCULOSKELETAL: No joint swelling or deformity. EXTREMITIES: No cyanosis, clubbing, or pedal edema. NEUROLOGICAL: Gross neurological examination did not reveal any focal deficits. SKIN: No rashes. No petechiae Results CBC & Chem 7: 03/07/21 07:07 03/07/21 07:07 Labs: Abnormal Lab Results - Last 24 Hours (Table) 03/06/21 03/06/21 03/06/21 Range/Units 16:07 16:07 16:07 MCV (80.0-100.0) fL MCH 35.1 H (25.0-35.0) pg Sodium 134 L (137-145) mmol/L Creatinine 0.46 L (0.52-1.04) mg/dL Urine Appearance Cloudy H (Clear) Urine Protein 1+ H (Negative) Urine WBC 26 H (0-5) /hpf 03/07/21 03/07/21 Range/Units 07:07 07:07 MCV 101.8 H (80.0-100.0) fL MCH (25.0-35.0) pg Sodium 136 L (137-145) mmol/L Creatinine (0.52-1.04) mg/dL Urine Appearance (Clear) Urine Protein (Negative) Urine WBC (0-5) /hpf Microbiology - Last 24 Hours (Table) 03/06/21 16:07 Urine Culture - Preliminary Urine,Clean Catch Thrombosis Risk Factor Assmnt - Choose All That Apply Each Factor Represents 1 point: Abnormal pulmonary function (COPD), Age 41-60 years Other Risk Factors: No Other congenital or acquired thrombophilia - If yes, enter type in comment: No Thrombosis Risk Factor Assessment Total Risk Factor Score: 2 Thrombosis Risk Factor Assessment Level: Low Risk Assessment and Plan Assessment: Recurrent episodes of Dizziness Mostly asymptomatic bacteriuria rather than UTI Hypertension History of asthma/COPD History of CVA/TIA Plan: This is a pleasant 60 years old female who presents with dizziness Continue with meclizine as needed. Neurology consult Consult cardiology service, telemetry, suture troponin and echocardiogram Labs and medication were reviewed.. Continue same treatment. Continue with symptomatic treatment. Resume home medication. Monitor lytes and vitals. DVT and GI prophylaxis. Further recommendations depends on the clinical course of the patient DVT prophylaxis: Subcutaneous heparin GI Prophylaxis: Pepcid Prognosis is guarded
--- NOTE | 2021-03-07 13:37 | US ---
EXAMINATION TYPE: US carotid duplex BILAT DATE OF EXAM: 03/07/2021 COMPARISON: MRA, MRI CT CLINICAL HISTORY: ?TIA/vertigo. Patient has dizziness, then leg weakness today EXAM MEASUREMENTS: RIGHT: Peak Systolic Velocity (PSV) cm/sec ----- Right CCA: 47.6 ----- Right ICA: 100.0 ----- Right ECA: 102.6 ICA/CCA ratio: 2.1 RIGHT: End Diastole cm/sec ----- Right CCA: 11.9 ----- Right ICA: 31.4 ----- Right ECA: 14.6 LEFT: Peak Systolic Velocity (PSV) cm/sec ----- Left CCA: 71.8 ----- Left ICA: 104.9 ----- Left ECA: 71.8 ICA/CCA ratio: 1.5 LEFT: End Diastole cm/sec ----- Left CCA: 19.0 ----- Left ICA: 37.4 ----- Left ECA: 13.6 VERTEBRALS (direction of flow): Right Vertebral: Antegrade Left Vertebral: Antegrade Rhythm: Normal Moderate, irregular wall changes are seen in bilateral ICA, but PSV is wnl bilaterally. IMPRESSION: No evidence for hemodynamically significant stenosis. Criteria for Assigning % of Stenosis / Diameter reduction (Estimation based on the indirect measurements of the internal carotid artery velocities (ICA PSV). 1. Normal (no stenosis)=ICA PSV < 125 cm/s: ratio < 2.0: ICA EDV<40 cm/s. 2. Less than 50% stenosis=ICA PSV < 125 cm/s: ratio < 2.0: ICA EDV<40 cm/s. 3. 50 to 69% stenosis=ICA PSV of 125 to 230 cm/s: ration 2.0 ? 4.0: ICA EDV 40-100 cm/s. 4. Greater than 70% stenosis to near occlusion= ICA PSV > 230 cm/s: ratio > 4.0: ICA EDV > 100 cm/s. 5. Near occlusion= ICA PSV velocities may be low or undetectable: variable ratio and ICA EDV. 6. Total occlusion=unable to detect flow.
--- NOTE | 2021-03-07 14:41 | ECHOF ---
Referral Reason:?TIA/vertigo MEASUREMENTS -------- HEIGHT: 170.2 cm WEIGHT: 83.9 kg BP: IVSd: 1.2 cm (0.6 - 1.1) LVIDd: 3.9 cm (3.9 - 5.3) LVPWd: 1.1 cm (0.6 - 1.1) EDV(Teich): 67 ml IVSs: 1.5 cm LVIDs: 3.0 cm LVPWs: 1.2 cm %IVS Thck: 28 % ESV(Teich): 34 ml EF(Teich): 49 % %FS: 25 % SV(Teich): 33 ml LA Diam: 3.7 cm (2.7 - 3.8) RVIDd: 3.1 cm (< 3.3) Ao Diam: 3.0 cm (2.0 - 3.7) AV Cusp: 1.7 cm (1.5 - 2.6) MV E [place]: 0.99 m/s MV DecT: 290 ms MV Dec [place]: 3.4 m/s MV A [place]: 0.96 m/s MV E/A Ratio: 1.03 MV PHT: 84 ms TR Vmax: 1.34 m/s TR maxP.23 mmHg RAP: 5.00 mmHg RVSP: 12.23 mmHg FINDINGS -------- Sinus rhythm. This was a technically adequate study. LV size, wall thickness and systolic function are normal, with an EF greater than 55%. The left sp tricular size is normal. The right ventricle is normal in size. The left atrial size is normal. The right atrial size is normal. Agitated saline performed to rule out PFO. Negative for right to left shunt but inconclusive for left to right shunt because there is negative contrast seen. There is mild aortic valve sclerosis. There is no evidence of aortic regurgitation. Mild mitral regurgitation is present. Mild tricuspid regurgitation present. Right ventricular systolic pressure is normal at < 35 mmHg. The pulmonic valve was not well visualized. There is no pericardial effusion. CONCLUSIONS -------- 1. LV size, wall thickness and systolic function are normal, with an EF greater than 55%. 2. The left ventricular size is normal. 3. The right ventricle is normal in size. 4. The left atrial size is normal. 5. The right atrial size is normal. 6. Agitated saline performed to rule out PFO. Negative for right to left shunt but inconclusive for l eft to right shunt because there is negative contrast seen. 7. There is mild aortic valve sclerosis. 8. Mild mitral regurgitation is present. 9. Mild tricuspid regurgitation present. 10. The pulmonic valve was not well visualized. 11. There is no pericardial effusion. [employer] OPERATOR: Kendra Vicente RDCS
--- NOTE | 2021-03-07 14:58 | MR ---
EXAMINATION TYPE: MR angio head wo con DATE OF EXAM: 03/07/2021 2:50 PM COMPARISON: NONE HISTORY: Vertigo TIA, rule out CVA Three-dimensional [id number] intracranial MRA was performed with multiple intensity projection im ages submitted and source data reviewed at the workstation. The vertebrobasilar system as well as intracranial portions of the internal carotid arteries and thei r major tributaries are patent. I do not see evidence for sizable aneurysm or vascular malformation. IMPRESSION: Normal study.
[2021-03-07] MEDS ORDERED: LOSARTAN 25 MG TAB PO SCH (15:15)
--- NOTE | 2021-03-07 15:39 | MR ---
MR brain without contrast HISTORY: Vertigo, TIA Multiplanar multisequence imaging through the brain Correlation to CT brain dated 03/06/2021 There is no restricted diffusion. There is a partially empty sella. Corpus callosum, cervical medulla ry junction, cerebellopontine angles are within normal limits. Nonspecific foci of hyperintensity on inversion recovery and T2 weighted sequences are present within the deep white matter, axial image 21 left frontal region measures 4 to 5 mm, axial image #20 in the pericallosal location. There is no he morrhage or hydrocephalus. Orbits show symmetric appearance. Paranasal sinuses are well aerated. Ther e is signal intensity in the right temporal bone may be related to flow artifact. impression: Nonspecific white matter demyelination of questionable clinical significance. Subacute is chemia is not evident.
--- NOTE | 2021-03-07 16:12 | P.CRDCN ---
History of Present Illness History of present illness: This is Dr. Brizuela dictating a consult on this patient The patient was interviewed and examined IMPRESSION / ASSESSMENT: Patient presented with dizziness and vertiginous symptoms She was found to be hypertensive So far the MRA is normal 2-D echo is normal Increased salt in her diet Regular alcohol use Stopped smoking This lady has uncontrolled hypertension and his symptoms are consistent with the same PLAN: Neurology started her on aspirin 325 mg by mouth daily If there is no clear-cut evidence of an embolic stroke then we should be reduced to 81 mg daily I would favor starting losartan 25 mg twice daily daily for blood pressure management Check lipid panel Check hemoglobin A1c Low salt diet Abstinence from alcohol intake Relation with hypertension explained Start atorvastatin 20 mg by mouth daily HPI patient presented to the emergency room with dizziness when she got out of bed this is accompanied by nausea or blurred vision ringing in the ears Symptoms occurred with movement Past history of hypertension lung disease and history of smoking and chronic back pain When she arrived in the ER her blood pressure is 134/86 mmHg 169/76. His mercury pulse rate in the 60s ROS: No fever chills or rigors, no cough, phlegm or expectoration, no nausea, vomiting or diarrhea, no hematuria, dysuria, no musculoskeletal complaints, no strokes or seizures, no skin lesions. EXAMINATION: Patient is still hypertensive, blood pressure 159/89, 154/90 Pulse rate in the 60s and 70s Afebrile Normal heart sounds Normal breath sounds Neurologic exam normal No JVD no carotid bruits REVIEW OF LABS, ECG & MEDICAL DATA Normal white count, hemoglobin 13.7, platelet count 233,000 Normal electrolytes sodium 136 Dressing 4.3 BUN and creatinine normal To cardiac enzymes are normal MRA of the brain is normal 2-D echo and Doppler studies normal Past Medical History Past Medical History: Asthma, COPD, CVA/TIA, Hypertension, Pneumonia Additional Past Medical History / Comment(s): pneumonia, anxiety, History of Any Multi-Drug Resistant Organisms: None Reported Past Surgical History: Section Additional Past Surgical History / Comment(s): Fertility surgery Past Anesthesia/Blood Transfusion Reactions: No Reported Reaction Past Psychological History: Anxiety Additional Psychological History / Comment(s): Pt resides alone. She is indepe ndent. Smoking Status: Former smoker Past Alcohol Use History: Occasional Additional Past Alcohol Use History / Comment(s): Pt states she started smoking in 1989 and quit last Tuesday, October 11, 2016. Past Drug Use History: None Reported, Marijuana - Past Family History Father Family Medical History: Cancer Additional Family Medical History / Comment(s): Father of mesothelioma at the age of 73 yrs. Mother Family Medical History: Cancer Additional Family Medical History / Comment(s): Mother of cancer-pt does not know type of cancer-she was 67yrs old. Medications and Allergies Home Medications Medication Instructions Recorded Confirmed Type ALPRAZolam [Xanax] 1 mg PO BID PRN 12/22/19 03/06/21 History hydroCHLOROthiazide [Hydrodiuril] 25 mg PO BID@0900,1700 12/22/19 03/06/21 History HYDROcodone/APAP 10-325MG [[place] 1 tab PO TID 06/09/20 03/06/21 History 10-325] Pantoprazole Sodium [Protonix] 40 mg PO HS 06/09/20 03/06/21 History Fluticasone/Umeclidin/Vilanter 1 puff INHALATION RT-DAILY 03/06/21 03/06/21 History [Trelegy Ellipta 100-62.5-25] Metoprolol Succinate (ER) [Toprol 50 mg PO DAILY 03/06/21 03/06/21 History Xl] Allergies Allergy/AdvReac Type Severity Reaction Status Date / Time No Known Allergies Allergy Verified 03/06/21 16:49 Physical Exam Vitals: Vital Signs Temp Pulse Pulse Pulse Pulse Pulse Resp 03/07/21 14:51 97.5 F L 65 74 70 16 03/07/21 11:58 64 03/07/21 11:47 64 03/07/21 08:52 72 03/07/21 08:39 72 03/07/21 08:00 68 16 03/07/21 07:00 97.4 F L 59 L 16 03/07/21 03:18 97.6 F 68 16 03/07/21 02:24 67 20 03/07/21 02:10 97.5 F L 65 74 67 18 03/06/21 19:36 62 20 03/06/21 18:00 79 16 BP BP BP BP BP Pulse Ox 03/07/21 14:51 144/92 154/90 159/89 95 03/07/21 11:58 03/07/21 11:47 03/07/21 08:52 03/07/21 08:39 03/07/21 08:00 03/07/21 07:00 149/81 97 03/07/21 03:18 146/86 95 03/07/21 02:24 03/07/21 02:10 144/92 154/90 159/89 95 03/06/21 19:36 169/76 98 03/06/21 18:00 150/78 99 Intake and Output 03/07/21 03/07/21 03/07/21 06:59 14:59 22:59 Intake Total 1000 118 Balance 1000 118 Intake: Intake, IV Titration 1000 Amount Sodium Chloride 0.9% 1, 1000 000 ml @ 999 mls/hr IV . Q1H1M STA Rx#:[id number] Oral 0 118 Other: Voiding Method Toilet # Voids 1 2 Weight 83.915 kg Results 03/07/21 07:07 03/07/21 07:07 Cardiac Enzymes 03/06/21 03/07/21 03/07/21 Range/Units 16:07 07:07 11:32 AST 32 (14-36) U/L Troponin I <0.012 <0.012 (0.000-0.034) ng/mL CBC 03/06/21 03/07/21 Range/Units 16:07 07:07 WBC 5.0 4.7 (3.8-10.6) k/uL RBC 4.47 3.96 (3.80-5.40) m/uL Hgb 15.7 13.7 (11.4-16.0) gm/dL Hct 44.5 40.3 (34.0-46.0) % Plt Count 243 233 (150-450) k/uL Comprehensive Metabolic Panel 03/06/21 03/07/21 03/07/21 Range/Units 16:07 07:07 07:07 Sodium 134 L 136 L (137-145) mmol/L Potassium 3.7 4.3 (3.5-5.1) mmol/L Chloride 100 104 (98-107) mmol/L Carbon Dioxide 26 29 (22-30) mmol/L BUN 13 10 (7-17) mg/dL Creatinine 0.46 L 0.56 (0.52-1.04) mg/dL Glucose 96 94 (74-99) mg/dL Calcium 9.8 9.0 (8.4-10.2) mg/dL Unconjugated Bilirubin 0.1 (0.0-1.1) mg/dL AST 32 (14-36) U/L ALT 38 H (4-34) U/L Alkaline Phosphatase 79 (38-126) U/L Total Protein 5.6 L (6.3-8.2) g/dL Albumin 3.0 L (3.5-5.0) g/dL Current Medications Generic Name Dose Route Start Last Admin Trade Name Freq PRN Reason Stop Dose Admin Acetaminophen 650 mg 03/06/21 21:50 Acetaminophen Tab 325 Mg Tab PO Q6HR PRN Mild Pain or Fever > 100.5 Hydrocodone Bitart/Acetaminophen 1 each 03/07/21 09:00 03/07/21 08:16 Hydrocodone/Apap 10-325mg 1 Each Tab PO 1 each TID JOSE Administration Alprazolam 1 mg 03/06/21 23:05 03/06/21 23:43 Alprazolam 1 Mg Tab PO 1 mg BID PRN Administration Anxiety Aspirin 325 mg 03/08/21 09:00 Aspirin 325 Mg Tab PO DAILY JOSE Budesonide/Formoterol Fumarate 2 puff 03/07/21 08:00 03/07/21 08:38 Symbicort 80-4.5 Mcg Inhaler INHALATION 2 puff RT-BID JOSE Administration Hydrochlorothiazide 25 mg 03/07/21 09:00 03/07/21 10:40 Hydrochlorothiazide 25 Mg Tab PO 25 mg BID@0900,1700 JOSE Administration Ipratropium [place] 0.5 mg 03/07/21 08:00 03/07/21 11:47 Ipratropium 0.5 Mg/2.5 Ml Nebu INHALATION 0.5 mg RT-QID JOSE Administration Losartan Potassium 25 mg 03/07/21 15:15 Losartan 25 Mg Tab PO DAILY JOSE Meclizine HCl 25 mg 03/07/21 08:04 Meclizine 25 Mg Tab PO BID PRN Vertigo Metoprolol Succinate 50 mg 03/07/21 09:00 03/07/21 08:16 Metoprolol Succinate (Er) 50 Mg Tab.Er.24h PO 50 mg DAILY JOSE Administration Naloxone HCl 0.2 mg 03/06/21 23:42 Naloxone 0.4 Mg/Ml 1 Ml Vial IV Q2M PRN Opioid Reversal Pantoprazole Sodium 40 mg 03/07/21 21:00 Pantoprazole 40 Mg Tablet PO HS JOSE Intake and Output 03/07/21 03/07/21 03/07/21 06:59 14:59 22:59 Intake Total 1000 118 Balance 1000 118 Intake: Intake, IV Titration 1000 Amount Sodium Chloride 0.9% 1, 1000 000 ml @ 999 mls/hr IV . Q1H1M STA Rx#:[id number] Oral 0 118 Other: Voiding Method Toilet # Voids 1 2 Weight 83.915 kg 03/07/21 07:07 03/07/21 07:07
[2021-03-07] MEDS: LOSARTAN 25 MG TAB PO SCH (19:25)
[2021-03-07 20:53] LABS: Chol/HDL Ratio 5.91 Ratio; Folate, Serum 4.7 ng/mL (4.40-31.00); HDL Cholesterol 65.8 mg/dL (40.00-60.00); VLDL Calculation 72.2 mg/dL (5.00-40.00)
[2021-03-07] MEDS ORDERED: ATORVASTATIN 20 MG TAB PO SCH (21:00)
[2021-03-07] MEDS ORDERED: PANTOPRAZOLE 40 MG TABLET PO SCH (21:00)
[2021-03-08 04:42] LABS: Chol/HDL Ratio 5.55 Ratio; HDL Cholesterol 62.3 mg/dL (40.00-60.00); LDL Cholesterol,Calculated 237.9 mg/dL (0.0-131.0); VLDL Calculation 45.8 mg/dL (5.00-40.00)
[2021-03-08] MEDS: IPRATROPIUM 0.5 MG/2.5 ML NEBU INHALATION SCH ×2 (07:15→11:01)
[2021-03-08] MEDS: SYMBICORT 80-4.5 MCG INHALER INHALATION SCH (07:15)
[2021-03-08 07:40] VITALS: BP 141/84; PULSE 76; RESP 18; TEMP 97.5
[2021-03-08] MEDS ORDERED: ASPIRIN 325 MG TAB PO SCH (09:00)
[2021-03-08] MEDS ORDERED: hydroCHLOROthiazide 25 MG TAB PO SCH (09:00)
[2021-03-08] MEDS ORDERED: FOLIC ACID 1 MG TAB PO SCH (09:30)
[2021-03-08] MEDS: HYDROcodone/APAP 10-325MG 1 EACH TAB PO SCH (09:35)
[2021-03-08] MEDS: METOPROLOL SUCCINATE (ER) 50 MG TAB.ER.24H PO SCH (09:37)
[2021-03-08] MEDS: LOSARTAN 25 MG TAB PO SCH (09:37)
--- NOTE | 2021-03-08 10:01 | P.PN ---
Subjective Principal diagnosis: Patient is resting comfortably in bed. Her stroke workup was normal Normal MRI of the brain There was no evidence for ischemia or subacute ischemia 2-D echo showed Normal LV systolic function Negative for PFO Mild MR and TR On examination her blood pressure is reasonable 134/80 441/84 and his mercury afebrile Pulse rate in the 60s and 70s Heart sounds S1 and S2 are normal Breath sounds are clear She does not have any further dizziness I started her on losartan yesterday Her lipid panel is quite abnormal Triglycerides 229, Total cholesterol 346 LDL 238 HDL 62 TSH 2.2 Impression Symptoms of dizziness and vertigo likely related to hypertension, uncontrolled Regular alcohol use [place] salt intake in diet Very high LDL total cholesterol and triglycerides No evidence for tendon xanthelasmas, LDL 238 Suggest Baby aspirin Atorvastatin 40 mrem by mouth daily Losartan 50 mg by mouth daily along with hydrochlorothiazide 25 mg orally once daily May continue metoprolol for now When I see her in the office office I would taper of metoprolol and increase dose of losartan to control her blood pressure She will go home today on the above medications Objective - Vital Signs Vital signs: Vital Signs Temp 97.5 F L 03/08/21 07:00 Pulse 80 03/08/21 07:28 Resp 18 03/08/21 07:00 BP 141/84 03/08/21 07:00 Pulse Ox 97 03/08/21 07:00 Intake & Output 03/07/21 03/08/21 03/08/21 18:59 06:59 18:59 Intake Total 118 240 Balance 118 240 Intake: Oral 118 240 Other: Voiding Method Toilet Toilet # Voids 2 1 1 - Labs CBC & Chem 7: 03/07/21 07:07 03/07/21 07:07 Labs: Abnormal Lab Results - Last 24 Hours (Table) 03/07/21 03/07/21 Range/Units 11:32 11:32 Triglycerides 361.00 H 229.00 H (0.00-149.00) mg/dL Cholesterol 389.00 H 346.00 H (0.00-200.00) mg/dL LDL Cholesterol, Calc 251.0 H 237.9 H (0.0-131.0) mg/dL VLDL Cholesterol, Calc 72.20 H 45.80 H (5.00-40.00) mg/dL HDL Cholesterol 65.80 H 62.30 H (40.00-60.00) mg/dL Microbiology - Last 24 Hours (Table) 03/06/21 16:07 Urine Culture - Final Urine,Clean Catch
--- NOTE | 2021-03-08 10:19 | P.PN ---
Subjective Progress Note Date: 03/08/21 Patient at present is doing fine. Denies headache or any vertigo or dizziness. Balance is fine. Objective - Vital Signs Vital signs: Vital Signs Temp 97.5 F L 03/08/21 07:00 Pulse 80 03/08/21 07:28 Resp 18 03/08/21 07:00 BP 141/84 03/08/21 07:00 Pulse Ox 97 03/08/21 07:00 Intake & Output 03/07/21 03/08/21 03/08/21 18:59 06:59 18:59 Intake Total 118 240 Balance 118 240 Intake: Oral 118 240 Other: Voiding Method Toilet Toilet # Voids 2 1 1 - Exam Patient's mental status, speech and language functions are normal. Cranial nerves are normal. Muscle strength is normal. No ataxia. Gait is normal. - Labs CBC & Chem 7: 03/07/21 07:07 03/07/21 07:07 Labs: Abnormal Lab Results - Last 24 Hours (Table) 03/07/21 03/07/21 Range/Units 11:32 11:32 Triglycerides 361.00 H 229.00 H (0.00-149.00) mg/dL Cholesterol 389.00 H 346.00 H (0.00-200.00) mg/dL LDL Cholesterol, Calc 251.0 H 237.9 H (0.0-131.0) mg/dL VLDL Cholesterol, Calc 72.20 H 45.80 H (5.00-40.00) mg/dL HDL Cholesterol 65.80 H 62.30 H (40.00-60.00) mg/dL Microbiology - Last 24 Hours (Table) 03/06/21 16:07 Urine Culture - Final Urine,Clean Catch Assessment and Plan Assessment: * Recurrent transient episodes (x3) of vertigo, gait imbalance, and one episode of transient tingling of the left arm. Possible TIA. Peripheral vestibular dysfunction also in the differential at least for vertigo. * Hypertension * Hyperlipidemia * X tobacco use * Macrocytosis * Folate deficiency * Mild alcoholism Plan: * MRI of the brain shows no acute stroke. Some nonspecific white matter c hanges. MRA of the head is normal, with no stenosis or aneurysm. * Carotid Doppler showed no significant stenosis, antegrade flow in both vertebral arteries. There is moderate irregular wall changes seen in bilateral ICA. * 2-D echo with bubble study revealed normal left-ventricular size, wall thick ness with EF greater than 55%. Left atrial size is normal. Agitated saline study was performed, and was negative for [id number]-vp-[id number] shunt but inconclusive for [id number] shunt because there is negative contrast seen. Mild aortic valve sclerosis. Cardiology is on board to address echo findings. * Fasting lipid panel. Total cholesterol 346, LDL 237.9, HDL 62.3 and triglycerides 229. Increase Lipitor from 20 to 40 mg daily. Strongly recommended dietary modification with decreased fat intake, salt and more fruits, vegetables and white meet. * Hemoglobin A1c normal 5.3 * B12 normal 478, folate is slightly low 4.70. Patient will be started on folate replacement 1 mg daily. * Patient has received aspirin 325 mg yesterday and today. I would suggest decreasing dose of aspirin to 162 mg daily for 3 months and then further decrease down to 81 mg daily and continue indefinitely. * Telemetry monitoring showing sinus rhythm, sinus bradycardia in the 50s to 100s. Some PACs.. * Neurologically clear for discharge.
[2021-03-08] MEDS ORDERED: ATORVASTATIN 40 MG TAB PO SCH (21:00)
[2021-03-09] MEDS ORDERED: ASPIRIN 81 MG PO SCH (09:00)
--- NOTE | 2021-03-21 11:37 | P.DS ---
Providers Date of admission: 03/06/21 23:42 Attending physician: aYncy Ragland Consults: 03/06/21 21:50 Consult Physician Stat Consulting Provider: Davidson Apple Consult Reason/Comments: Persistent dizziness after IVF and Meclizine Do you want consulting provider notified?: Already Contacted 03/07/21 11:03 Consult Physician Urgent Consulting Provider: Horace Brizuela Consult Reason/Comments: dizziness Do you want consulting provider notified?: Yes Primary care physician: Cj Vergara Hospital Course: Diagnoses: Recurrent episodes of Dizziness Mostly asymptomatic bacteriuria rather than UTI Hypertension History of asthma/COPD History of CVA/TIA Hospital course: This is a pleasant 60 years old female with past medical history of Asthma, COPD, CVA/TIA, Hypertension, Pneumonia. Patient presents because of 3 episodes of dizziness. First one happened Thursday night and lasted for 2 minutes, another one was Thursday night and lasted 2 hours, and 3rd one was yester morning when his stay and lasted longer so she decided to come to emergency room. During these episodes she feels the room was moving and sometimes is spinning, she cannot walk and she has to hold on other people or counter so she does not fall. She has been evaluated by salvage diver who diagnosed her with dizziness secondary to hypertension and her blood pressure medication were adjusted, see discharge instruction Neurologist recommended further workup and treatment for TIA. TSH was normal at 2.2. B12 was normal for 78 and folic normal at 4.7. Hemoglobin A1c was normal at 5.3%. Lipid profile showing elevated triglycerides and cholesterol and LDL. Echocardiogram showed ejection fraction greater than 55%. Carotid duplex negative. MRA of the head without contrast is negative normal study. CT of the brain and MRI of the brain without contrast showing no acute or subacute ischemia Patient was started on aspirin 81 mg and Lipitor. Continued on hydrochlorothiazide and her dose of losartan and metoprolol were doubled with systolic blood pressure lowered from 150-170 down to 130-140. On the day of discharge patient denies any other symptoms. No chest pain or dyspnea. No change in urine or bowel habits. No fever. Was cleared for discharge by both salvage diver and neurologist Problems and management plan were discussed with the patient and he verbalized understanding and acceptance Patient was found stable and can be discharged home however he needs follow-up as an outpatient. Patient was instructed to follow up with PCP Dr. Bernardo within one week and patient agrees with the appointments made for her on 03/14. Was instructed to follow up with salvage diver Dr. Aguiar in 2 weeks and she agrees And with neurologist Dr. Ernesto Osorio and dr.samuel Allison and in 1-2 weeks and she agrees Physical exam Gen: patient is a AAOx3, no distress CVS: S1-S2, RRR, no murmur Lungs: B/L CTA, no wheezing Abdomen: soft, no distention, no tenderness, positive bowel sounds Extremity: no leg edema or induration Neuro: Cranial nerves are grossly intact. Strength 5/5. Sensation is intact. Meningeal signs are absent Time spent more than 35 minutes Patient Condition at Discharge: Serious Plan - Discharge Summary Discharge Rx Participant: No New Discharge Prescriptions: New Losartan [Cozaar] 50 mg PO DAILY #90 tab Hydrochlorothiazide [hydroCHLOROthiazide] 25 mg PO DAILY #90 Aspirin 162 mg PO DAILY #60 tab Atorvastatin [Lipitor] 40 mg PO HS #90 tablet Metoprolol Succinate (ER) [Toprol XL] 25 mg PO DAILY #90 tab Changed ALPRAZolam [Xanax] 0.5 mg PO BID PRN #0 PRN Reason: Anxiety HYDROcodone/APAP 10-325MG [[place] 10-325] 1 tab PO BID #0 Discontinued hydroCHLOROthiazide [Hydrodiuril] 25 mg PO BID@0900,1700 Metoprolol Succinate (ER) [Toprol Xl] 50 mg PO DAILY No Action Pantoprazole Sodium [Protonix] 40 mg PO HS Fluticasone/Umeclidin/Vilanter [Trelegy Ellipta 100-62.5-25] 1 puff INHALATION RT-DAILY Discharge Medication List Pantoprazole Sodium [Protonix] 40 mg PO HS 06/09/20 [History] Fluticasone/Umeclidin/Vilanter [Trelegy Ellipta 100-62.5-25] 1 puff INHALATION RT-DAILY 03/06/21 [History] ALPRAZolam [Xanax] 0.5 mg PO BID PRN #0 03/08/21 [Rx] Aspirin 162 mg PO DAILY #60 tab 03/08/21 [Rx] Atorvastatin [Lipitor] 40 mg PO HS #90 tablet 10/22/21 [Rx] HYDROcodone/APAP 10-325MG [[place] 10-325] 1 tab PO BID #0 03/08/21 [Rx] Hydrochlorothiazide [hydroCHLOROthiazide] 25 mg PO DAILY #90 03/08/21 [Rx] Losartan [Cozaar] 50 mg PO DAILY #90 tab 03/08/21 [Rx] Metoprolol Succinate (ER) [Toprol XL] 25 mg PO DAILY #90 tab 03/08/21 [Rx] Follow up Appointment(s)/Referral(s): Horace Brizuela MD [STAFF PHYSICIAN] - 2 Weeks (PLEASE CALL AND SCHEDULE APPOINTMENT, [facility] CURRENTLY AT [facility].) Ursula Corona MD [Primary Care Provider] - 03/14/21 2:10 pm Momo Orozco MD [REFERRING] - 2 Weeks (neurologist ) Ezra Andrew MD [Medical Doctor] - 2 Weeks (neurologist ) Gillian Orozco MD [REFERRING] - 2 Weeks (neurologist ) Patient Instructions/Handouts: Vertigo (DC), Hypertension (DC) Activity/Diet/Wound Care/Special Instructions: Heart healthy diet Activity is restricted till you see your doctor we recommend taking aspirin to 162 mg daily for 3 months and then further decrease down to 81 mg daily and continue indefinitely. Discharge Disposition: HOME SELF-CARE
== END 2021-03-08 13:20 | disposition home or self-care (01) ==
LOC: EC 15:01 → 6NMEDSUR 23:42
PROVIDERS: ADMIT Hospitalist; ATTEND Hospitalist
DX: R42 Dizziness and giddiness (principal); R26.89 Other abnormalities of gait and mobility; R11.0 Nausea; R20.0 Anesthesia of skin; R20.2 Paresthesia of skin; R61 Generalized hyperhidrosis; H53.8 Other visual disturbances; H93.13 Tinnitus, bilateral; R82.71 Bacteriuria; J44.9 Chronic obstructive pulmonary disease, unspecified; I10 Essential (primary) hypertension; E78.5 Hyperlipidemia, unspecified; F41.9 Anxiety disorder, unspecified; D75.89 Other specified diseases of blood and blood-forming organs; E53.8 Deficiency of other specified B group vitamins; F10.20 Alcohol dependence, uncomplicated; M51.36 Other intervertebral disc degeneration, lumbar region; M47.819 Spondylosis without myelopathy or radiculopathy, site unspecified; M79.7 Fibromyalgia; G89.29 Other chronic pain; M54.50 Low back pain, unspecified; M25.579 Pain in unspecified ankle and joints of unspecified foot; G56.02 Carpal tunnel syndrome, left upper limb; I08.3 Combined rheumatic disorders of mitral, aortic and tricuspid valves; Z20.822 Contact with and (suspected) exposure to COVID-19; Z86.73 Personal history of transient ischemic attack (TIA), and cerebral infarction without residual deficits; Z87.01 Personal history of pneumonia (recurrent); Z87.891 Personal history of nicotine dependence; Z79.899 Other long term (current) drug therapy; Z79.891 Long term (current) use of opiate analgesic; Z80.1 Family history of malignant neoplasm of trachea, bronchus and lung; Z80.9 Family history of malignant neoplasm, unspecified
CPT/HCPCS: 96375; 96361; 96374; 99285; 36415; 94640 ×4; 93005; 93306; 80061 ×2; 80048 ×2; 80076; 84443; 82607; 82746; 84484 ×2; 85025 ×2; 81001; 87086; 83036; 87635; 71046; 93880; 70450; 70544; 70551; G0378 ×2; J2060; J2405

== ENCOUNTER 2021-03-23 23:29 | Emergency (ER) | payer OTHER ==
[2021-03-23 23:37] VITALS: RESP 18; TEMP 98.1
[2021-03-24 00:54] LABS: Basophils % (A) 1 %; Eosinophils # (A) 0.2 k/uL (0-0.7); Eosinophils % (A) 3 %; HCT 40.6 % (34.0-46.0); HGB 13.9 gm/dL (11.4-16.0); Lymphocytes # (A) 1.8 k/uL (1.0-4.8); Lymphocytes % (A) 27 %; MCHC 34.2 g/dL (31.0-37.0); MCV 99.3 fL (80.0-100.0); Mean Platelet Volume 7.4; Monocytes # (A) 0.3 k/uL (0-1.0); Monocytes % (A) 5 %; Neutrophils # (A) 3.9 k/uL (1.3-7.7); Neutrophils % (A) 61 %; Platelet Count 294 k/uL (150-450); RBC 4.08 m/uL (3.80-5.40); RDW 12.9 % (11.5-15.5); WBC 6.4 k/uL (3.8-10.6)
[2021-03-24 00:59] LABS: INR 0.9 (<1.2); Partial Thromboplastin Time 25.6 sec (22.0-30.0); Prothrombin Time 9.4 sec (9.0-12.0)
[2021-03-24 01:12] VITALS: BP 140/80; PULSE 76
[2021-03-24 01:21] LABS: ALT 46 U/L (4-34); AST 38 U/L (14-36); African American GFR (CKD) >90 (>60 ml/min/1.73 sqM); Albumin 3.8 g/dL (3.5-5.0); Alkaline Phosphatase 115 U/L (38-126); Anion Gap 8 mmol/L; Blood Urea Nitrogen 13 mg/dL (7-17); Calcium 9.2 mg/dL (8.4-10.2); Carbon Dioxide 27 mmol/L (22-30); Chloride 101 mmol/L (98-107); Glucose 107 mg/dL (74-99); Non-African American GFR(CKD) >90 (>60 ml/min/1.73 sqM); Potassium 3.8 mmol/L (3.5-5.1); Sodium 136 mmol/L (137-145); Total Bilirubin 0.3 mg/dL (0.2-1.3); Total Protein 6.4 g/dL (6.3-8.2)
[2021-03-24] MEDS ORDERED: SALINE NASAL GEL 14.1 GM TUBE NASAL STA (01:35)
[2021-03-24] MEDS ORDERED: OXYMETAZOLINE 0.05% NASL SPRAY 1 SPRAY BOTTLE NASAL STA (01:36)
--- NOTE | 2021-03-24 01:39 | ED ---
Recheck HPI - General Chief Complaint: Recheck/Abnormal Lab/Rx Stated Complaint: Nosebleeds Time Seen by Provider: 03/23/21 23:44 Source: patient Mode of arrival: ambulatory Limitations: no limitations - History of Present Illness Initial Comments: 60-year-old female patient presents to the emergency department today for evaluation of nosebleeds over the last 2-3 days. States she was recently admitted after having dizziness possible concern for TIA was started on new blood pressure medication and 2 baby aspirin daily. States that she has had 3-4 nose bleeds lasting approximately 2-3 hours each. States very difficult to get them to stop. She is concerned because of the new medications. States she has been checking her blood pressures and they have been under control. She denies any dizziness or weakness. Denies blurred or double vision. Denies headaches. Denies any chest pain or shortness of breath. Denies history of epistaxis. - Related Data Home Medications Medication Instructions Recorded Confirmed Pantoprazole Sodium [Protonix] 40 mg PO HS 06/09/20 03/06/21 Fluticasone/Umeclidin/Vilanter 1 puff INHALATION RT-DAILY 03/06/21 03/06/21 [Trelegy Ellipta 100-62.5-25] Previous Rx's Medication Instructions Recorded ALPRAZolam [Xanax] 0.5 mg PO BID PRN #0 03/08/21 Aspirin 162 mg PO DAILY #60 tab 03/08/21 Atorvastatin [Lipitor] 40 mg PO HS #90 tablet 03/08/21 HYDROcodone/APAP 10-325MG [Jay Em 1 tab PO BID #0 03/08/21 10-325] Hydrochlorothiazide 25 mg PO DAILY #90 03/08/21 [hydroCHLOROthiazide] Losartan [Cozaar] 50 mg PO DAILY #90 tab 03/08/21 Metoprolol Succinate (ER) [Toprol 25 mg PO DAILY #90 tab 03/08/21 XL] Allergies Allergy/AdvReac Type Severity Reaction Status Date / Time No Known Allergies Allergy Verified 03/23/21 23:37 Review of Systems ROS Statement: Those systems with pertinent positive or pertinent negative responses have been documented in the HPI. ROS Other: All systems not noted in ROS Statement are negative. Past Medical History Past Medical History: Asthma, COPD, CVA/TIA, Hypertension, Pneumonia Additional Past Medical History / Comment(s): pneumonia, anxiety, History of Any Multi-Drug Resistant Organisms: None Reported Past Surgical History: Section Additional Past Surgical History / Comment(s): Fertility surgery Past Anesthesia/Blood Transfusion Reactions: No Reported Reaction Past Psychological History: Anxiety Smoking Status: Former smoker Past Alcohol Use History: Occasional Past Drug Use History: Marijuana - Past Family History Father Family Medical History: Cancer Additional Family Medical History / Comment(s): Father of mesothelioma at the age of 73 yrs. Mother Family Medical History: Cancer Additional Family Medical History / Comment(s): Mother of cancer-pt does not know type of cancer-she was 67yrs old. General Exam Limitations: no limitations General appearance: alert, in no apparent distress, other (This is a well- developed, well-nourished adult female patient in no acute distress.) ENT exam: Present: normal exam, normal oropharynx, mucous membranes moist, other (No bleeding at this time) Respiratory exam: Present: normal lung sounds bilaterally. Absent: respiratory distress, wheezes, rales, rhonchi, stridor Cardiovascular Exam: Present: regular rate, normal rhythm, normal heart sounds. Absent: systolic murmur, diastolic murmur, rubs, gallop, clicks GI/Abdominal exam: Present: soft, normal bowel sounds. Absent: distended, tenderness, guarding, rebound, rigid Neurological exam: Present: alert, oriented X3, CN II-XII intact Psychiatric exam: Present: normal affect, normal mood Skin exam: Present: warm, dry, intact, normal color. Absent: rash Course Vital Signs 03/23/21 03/24/21 03/24/21 23:32 00:36 01:08 EST Temperature 98.1 F Pulse Rate 92 76 Respiratory 18 18 Rate Blood Pressure 205/96 166/83 140/80 O2 Sat by Pulse 96 96 Oximetry Medical Decision Making - Medical Decision Making 60-year-old female patient presented to the emergency department today for e valuation after having multiple nosebleeds. Physical examination is unremarkable. Initially blood pressure was elevated with did improve with rest. CBC, PT/INR, PTT were unremarkable. Patient had no bleeding while in the emergency department. We did discuss bleeding controlled measures should it start again. She is given nasal saline to apply twice daily. She is instructed to follow-up with ENT if she continues to have problems. She is instructed to follow-up the primary care physician for recheck in 1-2 days. Return parameters were discussed in detail. She verbalizes understanding and agrees with this plan. Case discussed with my attending Dr. Perez. - Lab Data Result diagrams: 03/24/21 00:40 03/24/21 00:40 Lab Results 03/24/21 03/24/21 03/24/21 Range/Units 00:40 00:40 00:40 WBC 6.4 (3.8-10.6) k/uL RBC 4.08 (3.80-5.40) m/uL Hgb 13.9 (11.4-16.0) gm/dL Hct 40.6 (34.0-46.0) % MCV 99.3 (80.0-100.0) fL MCH 34.0 (25.0-35.0) pg MCHC 34.2 (31.0-37.0) g/dL RDW 12.9 (11.5-15.5) % Plt Count 294 (150-450) k/uL MPV 7.4 Neutrophils % 61 % Lymphocytes % 27 % Monocytes % 5 % Eosinophils % 3 % Basophils % 1 % Neutrophils # 3.9 (1.3-7.7) k/uL Lymphocytes # 1.8 (1.0-4.8) k/uL Monocytes # 0.3 (0-1.0) k/uL Eosinophils # 0.2 (0-0.7) k/uL Basophils # 0.0 (0-0.2) k/uL PT 9.4 (9.0-12.0) sec INR 0.9 (<1.2) APTT 25.6 (22.0-30.0) sec Sodium 136 L (137-145) mmol/L Potassium 3.8 (3.5-5.1) mmol/L Chloride 101 (98-107) mmol/L Carbon Dioxide 27 (22-30) mmol/L Anion Gap 8 mmol/L BUN 13 (7-17) mg/dL Creatinine 0.64 (0.52-1.04) mg/dL Est GFR (CKD-EPI)AfAm >90 (>60 ml/min/1.73 sqM) Est GFR (CKD-EPI)NonAf >90 (>60 ml/min/1.73 sqM) Glucose 107 H (74-99) mg/dL Calcium 9.2 (8.4-10.2) mg/dL Total Bilirubin 0.3 (0.2-1.3) mg/dL AST 38 H (14-36) U/L ALT 46 H (4-34) U/L Alkaline Phosphatase 115 (38-126) U/L Total Protein 6.4 (6.3-8.2) g/dL Albumin 3.8 (3.5-5.0) g/dL Disposition Clinical Impression: Epistaxis Disposition: HOME SELF-CARE Condition: Good Instructions (If sedation given, give patient instructions): Nosebleed (ED) Additional Instructions: Use nasal saline twice per day once in the morning and once at night. If you develop a nose bleed follow these instructions: 1. Blow all blood clots out of your nose. This may take several blows. 2. [place] afrin spray into the side that is bleeding. 3. Hold pressure over the nose for a minimum of 20 minutes, without releasing pressure for any reason. If nose bleed continues attempt this process one more time. If bleeding persists after this proceed to the nearest emergency department for assistance. Follow up with ENT specialist for further evaluation of your nose bleeds. Follow-up with your primary care physician for recheck in 1-2 days. Is patient prescribed a controlled substance at d/c from ED?: No Referrals: Ursula Corona MD [Primary Care Provider] - 1-2 days Bill Hilario MD [STAFF PHYSICIAN] - 1-2 days Time of Disposition: 01:38
== END 2021-03-24 01:12 | disposition home or self-care (01) ==
LOC: EC 23:29
DX: R04.0 Epistaxis (principal); J44.9 Chronic obstructive pulmonary disease, unspecified; I10 Essential (primary) hypertension; Z86.73 Personal history of transient ischemic attack (TIA), and cerebral infarction without residual deficits; Z87.891 Personal history of nicotine dependence; Z79.51 Long term (current) use of inhaled steroids; Z79.82 Long term (current) use of aspirin
CPT/HCPCS: 36415; 80053; 85025; 85610; 85730; 99283

== ENCOUNTER → 2021-06-10 | Outpatient (CLI) | payer OTHER ==
[2021-06-10 14:38] LABS: HCT 39.1 % (37.2-46.3); HGB 12.8 g/dL (12.0-15.0); MCH 32.7 pg (27.0-32.0); MCHC 32.7 g/dL (32.0-37.0); MCV 99.7 fL (80.0-97.0); Mean Platelet Volume 10.2 fL (9.5-12.2); Platelet Count 263 X 10*3/uL (140-440); RBC 3.92 X 10*6/uL (4.10-5.20); RDW 12.4 % (11.5-14.5); WBC 5.47 X 10*3/uL (4.50-10.00)
[2021-06-10 14:46] LABS: African American GFR (CKD) 118.2 (60.0-200.0); Anion Gap 9.9 mmol/L (10.00-18.00); Blood Urea Nitrogen 10.7 mg/dL (9.0-27.0); Carbon Dioxide 27.2 mmol/L (20.0-27.5); Potassium 3.7 mmol/L (3.5-5.5)
== END | disposition home or self-care (01) ==
LOC: LABPAT 10:39
PROVIDERS: ATTEND Internal Medicine Cardiovascular Disease
DX: Z01.812 Encounter for preprocedural laboratory examination (principal); Z20.822 Contact with and (suspected) exposure to COVID-19; R94.39 Abnormal result of other cardiovascular function study
CPT/HCPCS: 80051; 82565; 84520; 85027; 36415; U0003; C9803

== ENCOUNTER 2021-06-13 10:19 | Day surgery (SDC) | payer OTHER ==
[2021-06-07 16:07] VITALS: BMI 30.7
[~2021-06-13 10:19] MED LIST: ALPRAZolam 0.25 MG TAB PO PRN; ALPRAZolam 0.5 MG TAB PO PRN; ASPIRIN 325 MG TAB PO STA; ATORVASTATIN 80 MG TAB PO STA; NITROGLYCERIN SL TABS 0.4 MG TAB SUBLINGUAL PRN; SODIUM CHLORIDE 0.9% 1,000 ML in EMPTY BAG 1 BAG IV SCH
[2021-06-13] MEDS ORDERED: SODIUM CHLORIDE 0.9% 1,000 ML IV ONE (10:26)
[2021-06-13 10:47] VITALS: TEMP 98.3
[2021-06-13] MEDS ORDERED: fentaNYL (PF) 50 MCG/ML 2 ML AMP ONE (11:00)
[2021-06-13] MEDS ORDERED: VERAPAMIL 2.5 MG/ML 2 ML AMP ONE (11:00)
[2021-06-13] MEDS ORDERED: LIDOCAINE 1% INJ 10MG/ML (20 ML MDV) ONE (11:00)
[2021-06-13] MEDS: MIDAZOLAM 2 MG/2 ML VIAL IVP ONE ×2 (11:20→11:24)
[2021-06-13] MEDS ORDERED: fentaNYL (PF) 50 MCG/ML 2 ML AMP IVP ONE (11:20)
[2021-06-13] MEDS ORDERED: LIDOCAINE 1% INJ 10MG/ML (20 ML MDV) SQ ONE (11:26)
[2021-06-13] MEDS: VERAPAMIL SYRINGE (5 MG/10 ML) INTRAARTER ONE ×2 (11:29→11:38)
[2021-06-13] MEDS ORDERED: HEPARIN SODIUM 1,000 UN/ML (10ML VL) ONE (11:31)
[2021-06-13] MEDS ORDERED: HEPARIN SODIUM 1,000 UN/ML (10ML VL) IVP ONE (11:32)
[2021-06-13] MEDS ORDERED: IOPAMIDOL-370 125ML BTL INJ ONE (11:37)
[2021-06-13] MEDS ORDERED: RX INFO: IV CONTRAST WAS GIVEN 1 EACH MISC MISCELLANE PRN (11:52)
--- NOTE | 2021-06-13 11:57 | P.CARDCATH ---
Date of Procedure: 06/13/21 Preoperative Diagnosis: Multiple risk factors, inconclusive stress test suggestive of moderate ischemia Postoperative Diagnosis: Multiple risk factors of an inconclusive stress test Procedure(s) Performed: Left heart catheterization without left ventriculography Description of Procedure: HISTORY: This is a 60-year-old female with history of smoking and hypertension and family history of ischemic heart disease who was evaluated by stress test which was inconclusive but suggestive of possible ischemia. Patient is advised to have a cardiac cath for definitive diagnosis. This was recommended by Dr. Brizuela CONSENT:I have discussed the risks, benefits and alternative therapies for the above-mentioned procedure and for both sedation/analgesia as well as necessary blood product administration, if indicated, as they pertain to this patient. The patient has indicated understanding and acceptance of the risks and procedures discussed. PROCEDURE: Patient was brought to the lab in a fasting state. Patient was given some IV sedation. The right wrist is infiltrated with lidocaine and right femoral artery was entered using Seldinger technique. A 6-Stateless catheter was left in place and selective coronary arteriography was performed. Patient tolerated the procedure well. TR band was applied for hemostasis. No immediate complications were noted and patient was transferred to [facility] in a stable condition Conscious Sedation: Versed 2mg Fentanyl 50 g Duration 12minutes HEMODYNAMICS: The aortic pressure is about 110/70. The left ventricular end- diastolic pressure was not measured SELECTIVE CORONARY ARTERIOGRAPHY: LEFT MAIN: Normal length and free of occlusive disease THE LEFT ANTERIOR DESCENDING CORONARY ARTERY:. Fair caliber vessel giving rise to small diagonal and septal branches. Free of any occlusive disease THE LEFT CIRCUMFLEX AND IS CORONARY ARTERY:. Moderate caliber vessel free of occlusive disease THE RIGHT CORONARY ARTERY: Moderate caliber vessel and codominant free of any occlusive disease LEFT VENTRICULOGRAPHY:. Performed FINAL IMPRESSION: Normal coronary arteries PLAN: Maximum medical therapy and this factor modification PROGNOSIS: Good
[2021-06-13] MEDS ORDERED: SODIUM CHLORIDE 0.9% 1,000 ML IV SCH (12:00)
[2021-06-13 13:56] VITALS: RESP 16
[2021-06-13 14:07] VITALS: BP 125/58; PULSE 74
== END 2021-06-13 15:57 | disposition home or self-care (01) ==
LOC: CATHCVL 10:19
PROVIDERS: ATTEND Internal Medicine Cardiovascular Disease
DX: R94.39 Abnormal result of other cardiovascular function study (principal); I10 Essential (primary) hypertension; Z82.49 Family history of ischemic heart disease and other diseases of the circulatory system; Z87.891 Personal history of nicotine dependence
CPT/HCPCS: 93454; C1894; J2250; J2001; J3010; J1644; Q9967

== ENCOUNTER 2021-08-18 16:45 | Emergency (ER) | payer OTHER ==
[2021-08-18 16:59] VITALS: TEMP 97.7
--- NOTE | 2021-08-18 17:27 | ED ---
General Adult HPI - General Chief complaint: Shortness of Breath Stated complaint: Anxiety Attack Time Seen by Provider: 08/18/21 17:25 Source: patient Mode of arrival: wheelchair Limitations: no limitations - History of Present Illness Initial comments: Patient presents to the ED stating that she was on her way to work this evening when she began to feel anxious and developed rapid heart palpitations and dyspnea. Patient states that she has a history of anxiety, and she states that she has had similar episodes of symptoms over the past month or so. Patient states states that she had been taking Xanax regularly for management of her anxiety for the past several years, but she states that her PCP lost his controlled substance license about a month ago, and so she has not had much Xanax since then. Patient states that she still has a few pills of Xanax (given to her by her friend), and she states that she took Xanax 0.5 mg just prior to coming to the emergency room today. Patient denies having any pain, fever or chills, headache, focal numbness/weakness/neuro deficit, visual changes, chest pain or pressure, cough or cold symptoms, dizziness, syncope, abdominal pain, nausea/vomiting/diarrhea, bloody or melanotic stool, dysuria or urinary symptoms, decreased urine output, leg or calf swelling or pain, or any other symptoms or complaints. Patient admits to occasional alcohol use, but she denies any alcohol use today. Patient denies any illicit drug use. - Related Data Home Medications Medication Instructions Recorded Confirmed Pantoprazole Sodium [Protonix] 40 mg PO HS 06/09/20 06/13/21 Fluticasone/Umeclidin/Vilanter 1 puff INHALATION RT-DAILY 03/06/21 06/13/21 [Trelegy Ellipta 100-62.5-25] Aspirin 81 mg PO DAILY 06/07/21 06/13/21 Previous Rx's Medication Instructions Recorded ALPRAZolam [Xanax] 0.5 mg PO BID PRN #0 03/08/21 Atorvastatin [Lipitor] 40 mg PO HS #90 tablet 03/08/21 HYDROcodone/APAP 10-325MG [[place] 1 tab PO BID #0 03/08/21 10-325] Hydrochlorothiazide 25 mg PO DAILY #90 03/08/21 [hydroCHLOROthiazide] Losartan [Cozaar] 50 mg PO DAILY #90 tab 03/08/21 Allergies Allergy/AdvReac Type Severity Reaction Status Date / Time No Known Allergies Allergy Verified 08/18/21 16:58 Review of Systems ROS Statement: Those systems with pertinent positive or pertinent negative responses have been documented in the HPI. ROS Other: All systems not noted in ROS Statement are negative. Past Medical History Past Medical History: Asthma, COPD, CVA/TIA, Hypertension, Pneumonia Additional Past Medical History / Comment(s): pneumonia, anxiety, History of Any Multi-Drug Resistant Organisms: None Reported Past Surgical History: Section, Heart Catheterization Additional Past Surgical History / Comment(s): Fertility surgery Past Anesthesia/Blood Transfusion Reactions: No Reported Reaction Past Psychological History: Anxiety Smoking Status: Former smoker Past Alcohol Use History: Occasional Past Drug Use History: None Reported - Past Family History Father Family Medical History: Cancer Additional Family Medical History / Comment(s): Father of mesothelioma at the age of 73 yrs. Mother Family Medical History: Cancer Additional Family Medical History / Comment(s): Mother of cancer-pt does not know type of cancer-she was 67yrs old. General Exam Limitations: no limitations General appearance: alert, anxious Head exam: Present: atraumatic, normocephalic Eye exam: Present: normal appearance, PERRL, EOMI ENT exam: Present: mucous membranes moist Neck exam: Present: other (Trachea is in midline) Respiratory exam: Present: normal lung sounds bilaterally. Absent: respiratory distress, wheezes, rales, rhonchi, stridor Cardiovascular Exam: Present: normal rhythm, tachycardia, normal heart sounds, other (Normal radial pulses bilaterally) GI/Abdominal exam: Present: soft. Absent: distended, tenderness, guarding Extremities exam: Present: other (Negative Homans sign bilaterally). Absent: tenderness, pedal edema, calf tenderness Neurological exam: Present: alert, oriented X3. Absent: motor sensory deficit Psychiatric exam: Present: anxious Skin exam: Present: warm, dry, intact, normal color Course Vital Signs 08/18/21 08/18/21 08/18/21 16:52 18:00 19:33 Temperature 97.7 F Pulse Rate 121 H 97 Respiratory 20 24 18 Rate Blood Pressure 173/106 156/94 O2 Sat by Pulse 98 97 Oximetry - Reevaluation(s) Reevaluation #1: 08/18/21 19:37 Patient states that she is now feeling better, and she states that her anxiety, palpitations and dyspnea have all now improved. Patient remains alert and breathing comfortably. Patient is aware of her test results, and she feels comfortable being discharged from the ED at this time. Patient states that she has a ride home from the ED tonight. Patient attributes her symptoms to anxiety and being under a lot of stress. Patient was counseled about anxiety, palpitations and dyspnea, and she was clearly explained return and follow-up instructions. Patient was instructed to have a low threshold for return to the emergency department should her symptoms worsen. Patient was also instructed to follow up closely with her primary care provider. Patient feels comfortable with this plan. EKG Findings - EKG Comments: EKG Findings:: Normal sinus rhythm, ventricular rate of 84 bpm, no ectopy, normal NE and QRS intervals, normal QT interval, normal axis, no ST or T-wave abnormality Medical Decision Making - Medical Decision Making Patient's labs, EKG and chest x-ray are all fairly unremarkable. Patient has been alert and breathing comfortably while in the ED. Patient's symptoms have improved with ED treatment. I suspect that the patient's symptoms are likely secondary to anxiety, and I do not suspect an emergent medical condition at this time. Will discharge patient home at this time. Patient feels comfortable this plan. - Lab Data Result diagrams: 08/18/21 18:06 08/18/21 18:06 Lab Results 08/18/21 08/18/21 08/18/21 Range/Units 18:06 18:06 18:06 WBC 6.9 (3.8-10.6) k/uL RBC 4.24 (3.80-5.40) m/uL Hgb 14.2 (11.4-16.0) gm/dL Hct 41.9 (34.0-46.0) % MCV 98.9 (80.0-100.0) fL MCH 33.5 (25.0-35.0) pg MCHC 33.9 (31.0-37.0) g/dL RDW 12.3 (11.5-15.5) % Plt Count 296 (150-450) k/uL MPV 7.8 Neutrophils % 70 % Lymphocytes % 21 % Monocytes % 5 % Eosinophils % 3 % Basophils % 1 % Neutrophils # 4.8 (1.3-7.7) k/uL Lymphocytes # 1.4 (1.0-4.8) k/uL Monocytes # 0.3 (0-1.0) k/uL Eosinophils # 0.2 (0-0.7) k/uL Basophils # 0.0 (0-0.2) k/uL PT 9.8 (9.0-12.0) sec INR 0.9 (<1.2) APTT 24.9 (22.0-30.0) sec Sodium 132 L (137-145) mmol/L Potassium 3.5 (3.5-5.1) mmol/L Chloride 99 (98-107) mmol/L Carbon Dioxide 27 (22-30) mmol/L Anion Gap 6 mmol/L BUN 16 (7-17) mg/dL Creatinine 0.70 (0.52-1.04) mg/dL Est GFR (CKD-EPI)AfAm >90 (>60 ml/min/1.73 sqM) Est GFR (CKD-EPI)NonAf >90 (>60 ml/min/1.73 sqM) Glucose 101 H (74-99) mg/dL Calcium 8.8 (8.4-10.2) mg/dL Total Bilirubin 0.5 (0.2-1.3) mg/dL AST 37 H (14-36) U/L ALT 40 H (4-34) U/L Alkaline Phosphatase 97 (38-126) U/L Troponin I (0.000-0.034) ng/mL NT-Pro-B Natriuret Pep pg/mL Total Protein 6.8 (6.3-8.2) g/dL Albumin 4.0 (3.5-5.0) g/dL 08/18/21 08/18/21 Range/Units 18:06 18:06 WBC (3.8-10.6) k/uL RBC (3.80-5.40) m/uL Hgb (11.4-16.0) gm/dL Hct (34.0-46.0) % MCV (80.0-100.0) fL MCH (25.0-35.0) pg MCHC (31.0-37.0) g/dL RDW (11.5-15.5) % Plt Count (150-450) k/uL MPV Neutrophils % % Lymphocytes % % Monocytes % % Eosinophils % % Basophils % % Neutrophils # (1.3-7.7) k/uL Lymphocytes # (1.0-4.8) k/uL Monocytes # (0-1.0) k/uL Eosinophils # (0-0.7) k/uL Basophils # (0-0.2) k/uL PT (9.0-12.0) sec INR (<1.2) APTT (22.0-30.0) sec Sodium (137-145) mmol/L Potassium (3.5-5.1) mmol/L Chloride (98-107) mmol/L Carbon Dioxide (22-30) mmol/L Anion Gap mmol/L BUN (7-17) mg/dL Creatinine (0.52-1.04) mg/dL Est GFR (CKD-EPI)AfAm (>60 ml/min/1.73 sqM) Est GFR (CKD-EPI)NonAf (>60 ml/min/1.73 sqM) Glucose (74-99) mg/dL Calcium (8.4-10.2) mg/dL Total Bilirubin (0.2-1.3) mg/dL AST (14-36) U/L ALT (4-34) U/L Alkaline Phosphatase (38-126) U/L Troponin I <0.012 (0.000-0.034) ng/mL NT-Pro-B Natriuret Pep 27 pg/mL Total Protein (6.3-8.2) g/dL Albumin (3.5-5.0) g/dL - Radiology Data Chest x-ray: No acute cardiopulmonary disease/process. Disposition Clinical Impression: Anxiety, Palpitations, Dyspnea Disposition: HOME SELF-CARE Condition: Stable Instructions (If sedation given, give patient instructions): Anxiety (ED), Heart Palpitations (ED), Dyspnea (ED) Additional Instructions: Return to the ER immediately should you develop increased shortness of breath, any significant pain, chest pain, feeling dizzy or faint, a fever, or new or worsening symptoms. Follow up closely with your primary care provider. Is patient prescribed a controlled substance at d/c from ED?: No Referrals: Ursula Corona MD [Primary Care Provider] - 1-2 days Time of Disposition: 19:43
[2021-08-18] MEDS ORDERED: LORazepam 2 MG/ML INJ IV STA (17:37)
[2021-08-18] MEDS ORDERED: SODIUM CHLORIDE 0.9% 1,000 ML IV STA (17:37)
[2021-08-18 18:14] LABS: Basophils % (A) 1 %; Eosinophils # (A) 0.2 k/uL (0-0.7); Eosinophils % (A) 3 %; HCT 41.9 % (34.0-46.0); HGB 14.2 gm/dL (11.4-16.0); Lymphocytes # (A) 1.4 k/uL (1.0-4.8); Lymphocytes % (A) 21 %; MCH 33.5 pg (25.0-35.0); MCHC 33.9 g/dL (31.0-37.0); MCV 98.9 fL (80.0-100.0); Mean Platelet Volume 7.8; Monocytes # (A) 0.3 k/uL (0-1.0); Monocytes % (A) 5 %; Neutrophils # (A) 4.8 k/uL (1.3-7.7); Neutrophils % (A) 70 %; Platelet Count 296 k/uL (150-450); RBC 4.24 m/uL (3.80-5.40); RDW 12.3 % (11.5-15.5); WBC 6.9 k/uL (3.8-10.6)
[2021-08-18 18:23] LABS: INR 0.9 (<1.2); Partial Thromboplastin Time 24.9 sec (22.0-30.0); Prothrombin Time 9.8 sec (9.0-12.0)
[2021-08-18 18:24] LABS: ALT 40 U/L (4-34); AST 37 U/L (14-36); African American GFR (CKD) >90 (>60 ml/min/1.73 sqM); Alkaline Phosphatase 97 U/L (38-126); Anion Gap 6 mmol/L; Blood Urea Nitrogen 16 mg/dL (7-17); Calcium 8.8 mg/dL (8.4-10.2); Carbon Dioxide 27 mmol/L (22-30); Chloride 99 mmol/L (98-107); Glucose 101 mg/dL (74-99); Non-African American GFR(CKD) >90 (>60 ml/min/1.73 sqM); Potassium 3.5 mmol/L (3.5-5.1); Sodium 132 mmol/L (137-145); Total Bilirubin 0.5 mg/dL (0.2-1.3); Total Protein 6.8 g/dL (6.3-8.2)
--- NOTE | 2021-08-18 18:39 | XR ---
EXAMINATION TYPE: XR chest 2V DATE OF EXAM: 08/18/2021 6:26 PM COMPARISON:Chest radiographs from 03/06/2021 TECHNIQUE: XR chest 2V Frontal and lateral views of the chest. CLINICAL INDICATION:Female, 60 years old with history of difficulty breathing; FINDINGS: Lungs/Pleura: There is no evidence of pleural effusion, focal consolidation, or pneumothorax. Pulmonary vascularity: Unremarkable. Heart/mediastinum: Cardiomediastinal silhouette is unremarkable. Musculoskeletal: No acute osseous pathology. IMPRESSION: No acute cardiopulmonary disease/process.
[2021-08-18 19:36] VITALS: BP 156/94; PULSE 97; RESP 18
== END 2021-08-18 20:01 | disposition home or self-care (01) ==
LOC: EC 16:45
DX: F41.9 Anxiety disorder, unspecified (principal); R06.00 Dyspnea, unspecified; I10 Essential (primary) hypertension; J44.9 Chronic obstructive pulmonary disease, unspecified; Z87.891 Personal history of nicotine dependence; Z79.82 Long term (current) use of aspirin; Z79.899 Other long term (current) drug therapy
CPT/HCPCS: 36415; 93005; 83880; 80053; 84484; 85025; 85610; 85730; 71046; 99285; 96374; 96361; J2060

== ENCOUNTER 2021-08-29 18:02 | Emergency (ER) | payer OTHER ==
[2021-08-29 18:35] VITALS: TEMP 98.2
[2021-08-29] MEDS ORDERED: cloNIDine HCL 0.1 MG TAB PO STA (19:27)
[2021-08-29] MEDS ORDERED: OXYMETAZOLINE 0.05% NASL SPRAY 1 SPRAY BOTTLE NASAL STA (19:28)
--- NOTE | 2021-08-29 20:05 | ED ---
ENT HPI - General Chief complaint: ENT Stated complaint: Nose bleed Time Seen by Provider: 08/29/21 19:01 Source: patient Mode of arrival: ambulatory Limitations: no limitations - History of Present Illness Initial comments: Patient is a 60-year-old female presenting with chief complaint of nosebleed. Patient states that she has been having episodes of difficult to control nosebleeds since yesterday. Patient has been applying pressure and using a nose clamp obtained from a previous visit here to control the bleeding. She states that while at work today she began to have another episode which prompted her to present to the ER. Patient has a history of hypertension and admits to taking her medication as prescribed. She denies headache, vision changes, lightheadedness, dizziness, abdominal pain, nausea, vomiting, chest pain, shortness of breath, weakness, loss of consciousness, use of blood thinners. - Related Data Home Medications Medication Instructions Recorded Confirmed Pantoprazole Sodium [Protonix] 40 mg PO HS 06/09/20 06/13/21 Fluticasone/Umeclidin/Vilanter 1 puff INHALATION RT-DAILY 03/06/21 06/13/21 [Trelegy Ellipta 100-62.5-25] Aspirin 81 mg PO DAILY 06/07/21 06/13/21 Previous Rx's Medication Instructions Recorded ALPRAZolam [Xanax] 0.5 mg PO BID PRN #0 03/08/21 Atorvastatin [Lipitor] 40 mg PO HS #90 tablet 03/08/21 HYDROcodone/APAP 10-325MG [[place] 1 tab PO BID #0 03/08/21 10-325] Hydrochlorothiazide 25 mg PO DAILY #90 03/08/21 [hydroCHLOROthiazide] Losartan [Cozaar] 50 mg PO DAILY #90 tab 03/08/21 ALPRAZolam [Xanax] 0.5 mg PO DAILY PRN #5 tab 08/18/21 Allergies Allergy/AdvReac Type Severity Reaction Status Date / Time No Known Allergies Allergy Verified 08/29/21 18:35 Review of Systems ROS Statement: Those systems with pertinent positive or pertinent negative responses have been documented in the HPI. ROS Other: All systems not noted in ROS Statement are negative. Past Medical History Past Medical History: Asthma, Coronary Artery Disease (CAD), COPD, CVA/TIA, Hypertension, Pneumonia Additional Past Medical History / Comment(s): pneumonia, anxiety, History of Any Multi-Drug Resistant Organisms: None Reported Past Surgical History: Section, Heart Catheterization Additional Past Surgical History / Comment(s): Fertility surgery Past Anesthesia/Blood Transfusion Reactions: No Reported Reaction Past Psychological History: Anxiety Smoking Status: Former smoker Past Alcohol Use History: Occasional Past Drug Use History: None Reported - Past Family History Father Family Medical History: Cancer Additional Family Medical History / Comment(s): Father of mesothelioma at the age of 73 yrs. Mother Family Medical History: Cancer Additional Family Medical History / Comment(s): Mother of cancer-pt does not know type of cancer-she was 67yrs old. General Exam Limitations: no limitations General appearance: alert, in no apparent distress Head exam: Present: atraumatic, normocephalic, normal inspection Eye exam: Present: normal appearance, PERRL, EOMI. Absent: scleral icterus, conjunctival injection, periorbital swelling ENT exam: Present: other (Bleeding from the right nare) Neck exam: Present: normal inspection Respiratory exam: Present: normal lung sounds bilaterally. Absent: respiratory distress, wheezes, rales, rhonchi, stridor Cardiovascular Exam: Present: regular rate, normal rhythm, normal heart sounds. Absent: systolic murmur, diastolic murmur, rubs, gallop, clicks Neurological exam: Present: alert, oriented X3, CN II-XII intact Psychiatric exam: Present: normal affect, normal mood Skin exam: Present: warm, dry, intact, normal color. Absent: rash Course Vital Signs 08/29/21 08/29/21 18:32 20:31 Temperature 98.2 F Pulse Rate 87 80 Respiratory 20 18 Rate Blood Pressure 198/114 169/77 O2 Sat by Pulse 96 95 Oximetry Medical Decision Making - Medical Decision Making Patient is a 60-year-old female presenting with chief complaint of epistaxis. Patient states that she has had on-and-off again episodes of epistaxis since last night. Patient has been using pressure and nose clamp obtained from previous visit for the same complaint to control the bleeding. 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 On examination her blood pressure is 198/114. Blood is visualized coming from the right near. Patient was given 0.1 mg Catapres and Afrin was applied to the affected nostril. At reexamination bleeding had ceased and patient was resting comfortably without her nose clamp. On BP recheck reading was 164/78. Patient is stable for discharge at this time. I allowed her to take Afrin home with her and explained how to use the medication. Follow-up with PCP this week, patient indicated she has an appointment arty scheduled for Thursday. Report back to ER with any worsening symptoms. I educated the patient on return parameters and answered all questions. Patient conveyed verbal understanding and agreed to the plan. I discussed this case with my attending Dr. Hastings. Disposition Clinical Impression: Epistaxis Disposition: HOME SELF-CARE Condition: Good Instructions (If sedation given, give patient instructions): Nosebleed (ED) Additional Instructions: Use Afrin, 2 actuations in each nostril every 10-12 hours as needed. Do not exceed 6 actuations in each nostril every 24 hours. May cause congestion. Follow-up with PCP in one to 2 days. Report back to ER with any worsening symptoms. Is patient prescribed a controlled substance at d/c from ED?: No Referrals: None,Stated [Primary Care Provider] - 1-2 days Time of Disposition: 20:58
[2021-08-29 20:31] VITALS: BP 169/77; PULSE 80; RESP 18
== END 2021-08-29 21:14 | disposition home or self-care (01) ==
LOC: EC 18:02
DX: R04.0 Epistaxis (principal); I10 Essential (primary) hypertension; I25.10 Atherosclerotic heart disease of native coronary artery without angina pectoris; J44.9 Chronic obstructive pulmonary disease, unspecified; F41.9 Anxiety disorder, unspecified; Z87.891 Personal history of nicotine dependence; Z79.82 Long term (current) use of aspirin; Z79.899 Other long term (current) drug therapy
CPT/HCPCS: 99283

== ENCOUNTER 2022-10-10 15:49 | Emergency (ER) | payer OTHER ==
--- NOTE | 2022-10-10 16:01 | ED ---
Recheck HPI - General Stated Complaint: High blood pressure Time Seen by Provider: 10/10/22 15:58 Source: RN notes reviewed, old records reviewed Mode of arrival: EMS Limitations: no limitations - History of Present Illness Initial Comments: This is a 61 female to the emergency department for evaluation. Blood pressure. Patient without complaint no chest pain neurological issue complaint. Patient presented to urgent care for low tremor swelling around her knees. 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 No other complaints. Patient does have hypertension at 23 pressure medications and she has been taking them. Patient does admit to anxiety at urgent care and feeling even more anxious here she has just taken EMS ride from urgent care to the emergency department MD Complaint: other (Elevated blood pressure, patient complained of knee swelling) -: week(s) Returns Today for: other (Patient has no other complaints aside from like swelling around the medial aspect of both knees) Symptoms Since Prior Visit: no new symptoms Context: planned re-check (Patient sent to the emergency department from urgent care for elevated blood pressure) Associated Symptoms: none Treatments Prior to Arrival: other (No medications given) - Related Data Home Medications Medication Instructions Recorded Confirmed Pantoprazole Sodium [Protonix] 40 mg PO HS 06/09/20 06/13/21 Fluticasone/Umeclidin/Vilanter 1 puff INHALATION RT-DAILY 03/06/21 06/13/21 [Trelegy Ellipta 100-62.5-25] Aspirin 81 mg PO DAILY 06/07/21 06/13/21 Previous Rx's Medication Instructions Recorded ALPRAZolam [Xanax] 0.5 mg PO BID PRN #0 03/08/21 Atorvastatin [Lipitor] 40 mg PO HS #90 tablet 03/08/21 HYDROcodone/APAP 10-325MG [[place] 1 tab PO BID #0 03/08/21 10-325] Losartan [Cozaar] 50 mg PO DAILY #90 tab 03/08/21 hydroCHLOROthiazide 25 mg PO DAILY #90 03/08/21 ALPRAZolam [Xanax] 0.5 mg PO DAILY PRN #5 tab 08/18/21 Allergies Allergy/AdvReac Type Severity Reaction Status Date / Time No Known Allergies Allergy Verified 10/10/22 16:20 Review of Systems ROS Statement: Those systems with pertinent positive or pertinent negative responses have been documented in the HPI. ROS Other: All systems not noted in ROS Statement are negative. Past Medical History Past Medical History: Asthma, Coronary Artery Disease (CAD), COPD, CVA/TIA, Hypertension, Pneumonia Additional Past Medical History / Comment(s): pneumonia, anxiety, History of Any Multi-Drug Resistant Organisms: None Reported Past Surgical History: Section, Heart Catheterization Additional Past Surgical History / Comment(s): Fertility surgery Past Anesthesia/Blood Transfusion Reactions: No Reported Reaction Past Psychological History: Anxiety Smoking Status: Former smoker Past Alcohol Use History: Occasional Past Drug Use History: None Reported - Past Family History Father Family Medical History: Cancer Additional Family Medical History / Comment(s): Father of mesothelioma at the age of 73 yrs. Mother Family Medical History: Cancer Additional Family Medical History / Comment(s): Mother of cancer-pt does not know type of cancer-she was 67yrs old. General Exam General appearance: alert, in no apparent distress Head exam: Present: atraumatic, normocephalic, normal inspection Eye exam: Present: normal appearance, PERRL, EOMI. Absent: scleral icterus, conjunctival injection, periorbital swelling ENT exam: Present: normal exam, mucous membranes moist Neck exam: Present: normal inspection. Absent: tenderness, meningismus, lymphadenopathy Respiratory exam: Present: normal lung sounds bilaterally. Absent: respiratory distress, wheezes, rales, rhonchi, stridor Cardiovascular Exam: Present: regular rate, normal rhythm, normal heart sounds. Absent: systolic murmur, diastolic murmur, rubs, gallop, clicks GI/Abdominal exam: Present: soft, normal bowel sounds. Absent: distended, tenderness, guarding, rebound, rigid Extremities exam: Present: normal inspection, full ROM, normal capillary refill. Absent: tenderness, pedal edema, joint swelling, calf tenderness Back exam: Present: normal inspection Neurological exam: Present: alert, oriented X3, CN II-XII intact Psychiatric exam: Present: normal affect, normal mood Skin exam: Present: warm, dry, intact, normal color. Absent: rash Course Vital Signs 10/10/22 10/10/22 16:17 17:51 Temperature 97.2 F L Pulse Rate 76 75 Respiratory 20 18 Rate Blood Pressure 203/101 161/98 O2 Sat by Pulse 95 99 Oximetry - Reevaluation(s) Reevaluation #1: 10/10/22 17:10 Medical records reviewed Reevaluation #2: 10/10/22 17:10 Patient's blood pressures improved here in the ER Reevaluation #3: 10/10/22 17:10 Patient for results questions answered Reevaluation #4: 10/10/22 17:09 Was pt. sent in by a medical professional or institution? @ -no Did you speak to anyone other than the patient for history? @ -no Did you review nursing and triage notes? @ -agree Were old charts reviewed? @ -no Differential Diagnosis? @ -prior EKG interpreted by me (3pts min.)? @ -yes X-rays interpreted by me (1pt min.)? @ -no CT interpreted by me (1pt min.)? @ -no U/S interpreted by me (1pt. min.)? @ -no What testing was considered but not performed? (CT, X-rays, U/S, labs)? Why? @ -no What meds were considered but not given? Why? @ -no Did you discuss the management of the patient with other professionals? @ -no Did you reconcile home meds? @ -no Was smoking cessation discussed for >3mins.? @ -no Was critical care preformed (if so, how long)? @ -no Were there social determinants of health that impacted care today? How? (Homelessness, low income, unemployed, alcoholism, drug addiction, transportation, low edu. Level, literacy, decrease access to med. care, halfway, rehab)? @ -no Was there de-escalation of care discussed even if they declined? (Discuss DNR or withdrawal of care, Hospice)? @ -no What co-morbidities impacted this encounter? (DM, HTN, Smoking, COPD, CAD, Cancer, CVA, Hep., AIDS, mental health diagnosis, sleep apnea, morbid obesity)? @ -none Was patient admitted / discharged? @ -61 female DEL with on the phone hypertension and edema and hypertensive urgency. Patient blood pressure has controlled patient can be discharged home Discharge Undiagnosed new problem with uncertain prognosis? @ -no Drug Therapy requiring intensive monitoring for toxicity (Heparin, Nitro, Insulin, Cardizem)? @ -no Were any procedures done? @ -no Diagnosis/symptom? @ -Hypertensive urgency Acute, or Chronic, or Acute on Chronic? @ -no Uncomplicated (without systemic symptoms) or Complicated (systemic symptoms)? @ -uncomplicated Side effects of treatment? @ -no Exacerbation, Progression, or Severe Exacerbation] @ -no Poses a threat to life or bodily function? @ -yes severe hypertension leading to stroke or CVA, CA Medical Decision Making - Medical Decision Making 61 female to the emergency department for evaluation of elevated blood pressure from urgent care. Patient is started on a new blood pressure medication. Blood pressures improved here in the ER. In regards to patient's lower extremity edema she is encouraged to elevate legs at night and wear compression stockings. Patient has no current complaints and she can be discharged home - EKG Data -: EKG Interpreted by Me (EKG sinus 82 ID [id number] QRS 73 QTc 400) Disposition Clinical Impression: Hypertension, Hypertensive urgency, Bilateral leg edema, Dizziness of unknown etiology Disposition: HOME SELF-CARE Condition: Good Instructions (If sedation given, give patient instructions): Leg Edema (ED), Hypertension (ED) Is patient prescribed a controlled substance at d/c from ED?: No Referrals: Lovely Johnson [Primary Care Provider] - 1-2 days Time of Disposition: 16:30
[2022-10-10 16:20] VITALS: TEMP 97.2
[2022-10-10] MEDS ORDERED: amLODIPine 5 MG TAB PO STA (16:28)
[2022-10-10] MEDS ORDERED: cloNIDine HCL 0.1 MG TAB PO STA (16:28)
[2022-10-10 17:53] VITALS: BP 161/98; PULSE 75; RESP 18
== END 2022-10-10 17:52 | disposition home or self-care (01) ==
LOC: EC 15:49
DX: I16.0 Hypertensive urgency (principal); R60.0 Localized edema; R42 Dizziness and giddiness; I25.10 Atherosclerotic heart disease of native coronary artery without angina pectoris; J44.9 Chronic obstructive pulmonary disease, unspecified; F41.9 Anxiety disorder, unspecified; Z87.891 Personal history of nicotine dependence; Z86.73 Personal history of transient ischemic attack (TIA), and cerebral infarction without residual deficits; Z79.51 Long term (current) use of inhaled steroids; Z79.82 Long term (current) use of aspirin
CPT/HCPCS: 99284

== ENCOUNTER 2023-12-07 16:49 | Emergency (ER) | payer BC, OTHER ==
[2023-12-07 17:15] VITALS: TEMP 98
--- NOTE | 2023-12-07 17:34 | ED ---
SOB HPI - General Chief Complaint: Shortness of Breath Stated Complaint: LILA Time Seen by Provider: 12/07/23 17:17 Source: patient, RN notes reviewed Mode of arrival: ambulatory - History of Present Illness Initial Comments: 63-year-old female with a history of asthma who states she had the onset about 8 days ago of sore throat earaches fevers chills intermittently with sweats. She was seen in a clinic about a week ago given antibiotics and steroids but persistent having shortness of breath and now she has exertional dyspnea and no relief after multiple home treatments. She states she no longer has fevers or chills or sweats. But she still has shortness of breath. MD Complaint: shortness of breath, cough - Related Data Home Medications Medication Instructions Recorded Confirmed Albuterol Inhaler [Ventolin Hfa 2 puff INHALATION RT-Q6H PRN 12/07/23 12/07/23 Inhaler] Albuterol Nebulized [Ventolin 2.5 mg INHALATION RT-QID PRN 12/07/23 12/07/23 Nebulized] Amoxic-Pot Clav 875-125Mg 1 tab PO BID 12/07/23 12/07/23 [Augmentin 875-125] HYDROcodone/APAP 10-325MG [[place] 1 tab PO BID 12/07/23 12/07/23 10-325] HYDROcodone/APAP 10-325MG [[place] 1 tab PO DAILY PRN 12/07/23 12/07/23 10-325] Losartan Potassium 100 mg PO DAILY 12/07/23 12/07/23 NIFEdipine XL [Procardia Xl] 30 mg PO HS 12/07/23 12/07/23 Venlafaxine HCl [Effexor XR] 75 mg PO DAILY 12/07/23 12/07/23 hydroCHLOROthiazide [Hydrodiuril] 50 mg PO DAILY 12/07/23 12/07/23 predniSONE [Deltasone] 20 mg PO BID 12/07/23 12/07/23 Previous Rx's Medication Instructions Recorded Ipratropium/Albuter 20-100Mcg 1 puff INHALATION Q6HR PRN #4 gm 12/07/23 [Combivent Respimat 20-100Mcg Inhaler] predniSONE [Deltasone] 20 mg PO BID #10 tab 12/07/23 Allergies Allergy/AdvReac Type Severity Reaction Status Date / Time No Known Allergies Allergy Verified 12/07/23 19:34 Review of Systems ROS Statement: Those systems with pertinent positive or pertinent negative responses have been documented in the HPI. ROS Other: All systems not noted in ROS Statement are negative. Past Medical History Past Medical History: Asthma, Coronary Artery Disease (CAD), COPD, CVA/TIA, Hypertension, Pneumonia Additional Past Medical History / Comment(s): pneumonia, anxiety, History of Any Multi-Drug Resistant Organisms: None Reported Past Surgical History: Section, Heart Catheterization Additional Past Surgical History / Comment(s): Fertility surgery Past Anesthesia/Blood Transfusion Reactions: No Reported Reaction Past Psychological History: Anxiety Smoking Status: Former smoker Past Alcohol Use History: Occasional Past Drug Use History: None Reported - Past Family History Father Family Medical History: Cancer Additional Family Medical History / Comment(s): Father of mesothelioma at the age of 73 yrs. Mother Family Medical History: Cancer Additional Family Medical History / Comment(s): Mother of cancer-pt does not know type of cancer-she was 67yrs old. General Exam - General Exam Comments Initial Comments: This is a well-developed well-nourished awake alert oriented x 4 female General appearance: anxious, in distress Head exam: Present: atraumatic, normocephalic, normal inspection Eye exam: Present: normal appearance, PERRL, EOMI. Absent: scleral icterus, conjunctival injection, periorbital swelling ENT exam: Present: normal exam, mucous membranes moist Neck exam: Present: normal inspection. Absent: tenderness, meningismus, lymphadenopathy Respiratory exam: Present: accessory muscle use, decreased breath sounds. Absent: respiratory distress, wheezes, rales, rhonchi, stridor Cardiovascular Exam: Present: normal rhythm, tachycardia, normal heart sounds. Absent: systolic murmur, diastolic murmur, rubs, gallop, clicks GI/Abdominal exam: Present: soft, normal bowel sounds. Absent: distended, tenderness, guarding, rebound, rigid Extremities exam: Present: normal inspection, full ROM, normal capillary refill. Absent: tenderness, pedal edema, joint swelling, calf tenderness Back exam: Present: normal inspection Neurological exam: Present: alert, oriented X3, CN II-XII intact Psychiatric exam: Present: normal affect, normal mood Skin exam: Present: warm, dry, intact, normal color. Absent: rash Course Vital Signs 12/07/23 12/07/23 12/07/23 17:10 17:34 17:40 Temperature 98 F Pulse Rate 113 H 91 96 Respiratory 32 H 23 22 Rate Blood Pressure 207/97 191/106 O2 Sat by Pulse 93 L 96 Oximetry 12/07/23 12/07/23 12/07/23 17:50 18:18 18:27 Temperature Pulse Rate 82 92 83 Respiratory 22 Rate Blood Pressure 175/104 O2 Sat by Pulse 95 Oximetry 12/07/23 12/07/23 12/07/23 19:34 20:22 20:33 Temperature Pulse Rate 77 91 Respiratory Rate Blood Pressure 174/97 O2 Sat by Pulse Oximetry - Reevaluation(s) Reevaluation #1: 12/07/23 19:54 Evaluation patient feels much improved with increased aeration still slight wheezing. The patient will get IV magnesium as well as another breathing treatment. Medical Decision Making - Medical Decision Making Did require additional nebulizer treatment with marked improvement she was able to ambulate without difficulty. Patient will be discharged home we did discuss the medications the when she was on before was too expensive she will be placed on Combivent in addition to a short course of steroids. Was pt. sent in by a medical professional or institution (, PA, [employer], urgent care, hospital, or [place] [facility]...) When possible be specific @ -No Did you speak to anyone other than the patient for history (EMS, parent, family, police, friend...)? What history was obtained from this source @ -Only Did you review nursing and triage notes (agree or disagree)? Why? @ -I reviewed and agree with nursing and triage notes Were old charts reviewed (outside hosp., previous admission, EMS record, old EKG, old radiological studies, urgent care reports/EKG's, [place] [facility] records)? Report findings @ -No old charts were reviewed Differential Diagnosis (chest pain, altered mental status, abdominal pain women, abdominal pain men, vaginal bleeding, weakness, fever, dyspnea, syncope, headache, dizziness, GI bleed, back pain, seizure, CVA, palpatations, mental health, musculoskeletal)? @ -Not applicable EKG interpreted by me (3pts min.). @ -As above EKG interpreted by me sinus rhythm with a rate of 89 HI interval 147 QRS duration 86 QT/QTc 337/[address]-T wave changes seen this is a normal-appearing EKG X-rays interpreted by me (1pt min.). @ -X-ray interpreted by me no acute process CT interpreted by me (1pt min.). @ -None done U/S interpreted by me (1pt. min.). @ -None done What testing was considered but not performed or refused? (CT, X-rays, U/S, labs)? Why? @ -None What meds were considered but not given or refused? Why? @ -None Did you discuss the management of the patient with other professionals (professionals i.e. Dr., PA, [employer], lab, RT, psych nurse, social service worker, elastic assembler, teacher, chief juvenile probation officer, assistant case manager)? Give summary @ -No Was smoking cessation discussed for >3mins.? @ -No Was critical care preformed (if so, how long)? @ -No Were there social determinants of health that impacted care today? How? (Homelessness, low income, unemployed, alcoholism, drug addiction, transportation, low edu. Level, literacy, decrease access to med. care, [place] [facility], rehab)? @ -No Was there de-escalation of care discussed even if they declined (Discuss DNR or withdrawal of care, Hospice)? DNR status @ -No What co-morbidities impacted this encounter? (DM, HTN, Smoking, COPD, CAD, Cancer, CVA, ARF, Chemo, Hep., AIDS, mental health diagnosis, sleep apnea, morbid obesity)? @ -Asthma Was patient admitted / discharged? Hospital course, mention meds given and route, prescriptions, significant lab abnormalities, going to OR and other pertinent info. @ -Hospital course the patient was discharged home Undiagnosed new problem with uncertain prognosis? @ -No Drug Therapy requiring intensive monitoring for toxicity (Heparin, Nitro, Insulin, Cardizem)? @ -No Were any procedures done? @ -No Diagnosis/symptom? @ -Acute asthma exacerbation Acute, or Chronic, or Acute on Chronic? @ -Acute Uncomplicated (without systemic symptoms) or Complicated (systemic symptoms)? @ -Default Side effects of treatment? @ -No Exacerbation, Progression, or Severe Exacerbation? @ -No Poses a threat to life or bodily function? How? (Chest pain, [place], [place], pneumonia, PE, COPD, DKA, ARF, appy, cholecystitis, CVA, Diverticulitis, Homicidal, Suicidal, threat to staff... and all critical care pts) @ -Potential - Lab Data Result diagrams: 12/07/23 17:54 12/07/23 18:15 Lab Results 12/07/23 12/07/23 12/07/23 Range/Units 17:15 17:54 17:54 WBC 9.7 (3.8-10.6) k/uL RBC 4.12 (3.80-5.40) m/uL Hgb 13.6 (11.4-16.0) gm/dL Hct 40.6 (34.0-46.0) % MCV 98.6 (80.0-100.0) fL MCH 33.0 (25.0-35.0) pg MCHC 33.5 (31.0-37.0) g/dL RDW 12.8 (11.5-15.5) % Plt Count 320 (150-450) k/uL MPV 8.0 Neutrophils % 86 % Lymphocytes % 7 % Monocytes % 4 % Eosinophils % 2 % Basophils % 0 % Neutrophils # 8.4 H (1.3-7.7) k/uL Lymphocytes # 0.7 L (1.0-4.8) k/uL Monocytes # 0.4 (0-1.0) k/uL Eosinophils # 0.1 (0-0.7) k/uL Basophils # 0.0 (0-0.2) k/uL PT 9.6 L (10.0-12.5) sec INR 0.9 (<1.2) APTT 23.6 (22.0-30.0) sec Sodium (137-145) mmol/L Potassium (3.5-5.1) mmol/L Chloride (98-107) mmol/L Carbon Dioxide (22-30) mmol/L Anion Gap mmol/L BUN (7-17) mg/dL Creatinine (0.52-1.04) mg/dL Est GFR (CKD-EPI)AfAm (>60 ml/min/1.73 sqM) Est GFR (CKD-EPI)NonAf (>60 ml/min/1.73 sqM) Glucose (74-99) mg/dL Lactic Ac Sepsis Rflx Plasma Lactic Acid Oren (0.7-2.0) mmol/L Calcium (8.4-10.2) mg/dL Magnesium (1.6-2.3) mg/dL Total Bilirubin (0.2-1.3) mg/dL AST (14-36) U/L ALT (4-34) U/L Alkaline Phosphatase (38-126) U/L Troponin I (0.000-0.034) ng/mL NT-Pro-B Natriuret Pep pg/mL Total Protein (6.3-8.2) g/dL Albumin (3.5-5.0) g/dL Influenza Type A (PCR) Not Detected (Not Detectd) Influenza Type B (PCR) Not Detected (Not Detectd) RSV (PCR) Not Detected (Not Detectd) SARS-CoV-2 (PCR) Not Detected (Not Detectd) 12/07/23 12/07/23 12/07/23 Range/Units 17:54 18:15 18:15 WBC (3.8-10.6) k/uL RBC (3.80-5.40) m/uL Hgb (11.4-16.0) gm/dL Hct (34.0-46.0) % MCV (80.0-100.0) fL MCH (25.0-35.0) pg MCHC (31.0-37.0) g/dL RDW (11.5-15.5) % Plt Count (150-450) k/uL MPV Neutrophils % % Lymphocytes % % Monocytes % % Eosinophils % % Basophils % % Neutrophils # (1.3-7.7) k/uL Lymphocytes # (1.0-4.8) k/uL Monocytes # (0-1.0) k/uL Eosinophils # (0-0.7) k/uL Basophils # (0-0.2) k/uL PT (10.0-12.5) sec INR (<1.2) APTT (22.0-30.0) sec Sodium 138 (137-145) mmol/L Potassium 4.2 (3.5-5.1) mmol/L Chloride 104 (98-107) mmol/L Carbon Dioxide 25 (22-30) mmol/L Anion Gap 9 mmol/L BUN 17 (7-17) mg/dL Creatinine 0.57 (0.52-1.04) mg/dL Est GFR (CKD-EPI)AfAm >90 (>60 ml/min/1.73 sqM) Est GFR (CKD-EPI)NonAf >90 (>60 ml/min/1.73 sqM) Glucose 115 H (74-99) mg/dL Lactic Ac Sepsis Rflx Plasma Lactic Acid Oren 2.1 H* (0.7-2.0) mmol/L Calcium 9.1 (8.4-10.2) mg/dL Magnesium 1.6 (1.6-2.3) mg/dL Total Bilirubin 0.3 (0.2-1.3) mg/dL AST 48 H (14-36) U/L ALT 44 H (4-34) U/L Alkaline Phosphatase 104 (38-126) U/L Troponin I <0.012 (0.000-0.034) ng/mL NT-Pro-B Natriuret Pep 166 pg/mL Total Protein 6.7 (6.3-8.2) g/dL Albumin 4.3 (3.5-5.0) g/dL Influenza Type A (PCR) (Not Detectd) Influenza Type B (PCR) (Not Detectd) RSV (PCR) (Not Detectd) SARS-CoV-2 (PCR) (Not Detectd) 12/07/23 Range/Units 18:26 WBC (3.8-10.6) k/uL RBC (3.80-5.40) m/uL Hgb (11.4-16.0) gm/dL Hct (34.0-46.0) % MCV (80.0-100.0) fL MCH (25.0-35.0) pg MCHC (31.0-37.0) g/dL RDW (11.5-15.5) % Plt Count (150-450) k/uL MPV Neutrophils % % Lymphocytes % % Monocytes % % Eosinophils % % Basophils % % Neutrophils # (1.3-7.7) k/uL Lymphocytes # (1.0-4.8) k/uL Monocytes # (0-1.0) k/uL Eosinophils # (0-0.7) k/uL Basophils # (0-0.2) k/uL PT (10.0-12.5) sec INR (<1.2) APTT (22.0-30.0) sec Sodium (137-145) mmol/L Potassium (3.5-5.1) mmol/L Chloride (98-107) mmol/L Carbon Dioxide (22-30) mmol/L Anion Gap mmol/L BUN (7-17) mg/dL Creatinine (0.52-1.04) mg/dL Est GFR (CKD-EPI)AfAm (>60 ml/min/1.73 sqM) Est GFR (CKD-EPI)NonAf (>60 ml/min/1.73 sqM) Glucose (74-99) mg/dL Lactic Ac Sepsis Rflx Y Plasma Lactic Acid Oren (0.7-2.0) mmol/L Calcium (8.4-10.2) mg/dL Magnesium (1.6-2.3) mg/dL Total Bilirubin (0.2-1.3) mg/dL AST (14-36) U/L ALT (4-34) U/L Alkaline Phosphatase (38-126) U/L Troponin I (0.000-0.034) ng/mL NT-Pro-B Natriuret Pep pg/mL Total Protein (6.3-8.2) g/dL Albumin (3.5-5.0) g/dL Influenza Type A (PCR) (Not Detectd) Influenza Type B (PCR) (Not Detectd) RSV (PCR) (Not Detectd) SARS-CoV-2 (PCR) (Not Detectd) Disposition Clinical Impression: Asthma with acute exacerbation Disposition: HOME SELF-CARE Condition: Good Instructions (If sedation given, give patient instructions): Asthma (ED) Prescriptions: Ipratropium/Albuter 20-100Mcg [Combivent Respimat 20-100Mcg Inhaler] 1 puff INHALATION Q6HR PRN #4 gm PRN Reason: Dyspnea predniSONE [Deltasone] 20 mg PO BID #10 tab Is patient prescribed a controlled substance at d/c from ED?: No Referrals: Lovely Johnson [Primary Care Provider] - 1-2 days Time of Disposition: 20:45 Decision Date: 12/07/23 Decision Time: 20:45
[2023-12-07] MEDS: methylPREDNISolone SOD SUCCI 125 MG/2 ML VIAL IV STA (17:53)
[2023-12-07 18:06] LABS: Basophils % (A) 0 %; Eosinophils # (A) 0.1 k/uL (0-0.7); Eosinophils % (A) 2 %; HCT 40.6 % (34.0-46.0); HGB 13.6 gm/dL (11.4-16.0); Lymphocytes # (A) 0.7 k/uL (1.0-4.8); Lymphocytes % (A) 7 %; MCHC 33.5 g/dL (31.0-37.0); MCV 98.6 fL (80.0-100.0); Monocytes # (A) 0.4 k/uL (0-1.0); Monocytes % (A) 4 %; Neutrophils # (A) 8.4 k/uL (1.3-7.7); Neutrophils % (A) 86 %; Platelet Count 320 k/uL (150-450); RBC 4.12 m/uL (3.80-5.40); RDW 12.8 % (11.5-15.5); WBC 9.7 k/uL (3.8-10.6)
[2023-12-07] MEDS: IPRATROPIUM-ALBUTEROL 3 ML NEB INHALATION STA ×2 (18:18→20:22)
[2023-12-07 18:35] LABS: ALT 44 U/L (4-34); AST 48 U/L (14-36); African American GFR (CKD) >90 (>60 ml/min/1.73 sqM); Albumin 4.3 g/dL (3.5-5.0); Alkaline Phosphatase 104 U/L (38-126); Anion Gap 9 mmol/L; Blood Urea Nitrogen 17 mg/dL (7-17); Calcium 9.1 mg/dL (8.4-10.2); Carbon Dioxide 25 mmol/L (22-30); Chloride 104 mmol/L (98-107); Glucose 115 mg/dL (74-99); Magnesium 1.6 mg/dL (1.6-2.3); Non-African American GFR(CKD) >90 (>60 ml/min/1.73 sqM); Potassium 4.2 mmol/L (3.5-5.1); Sodium 138 mmol/L (137-145); Total Bilirubin 0.3 mg/dL (0.2-1.3); Total Protein 6.7 g/dL (6.3-8.2)
[2023-12-07 18:43] LABS: NT-Pro-B-Type Natriuretic Pept 166 pg/mL
[2023-12-07 18:54] LABS: INR 0.9 (<1.2); Partial Thromboplastin Time 23.6 sec (22.0-30.0); Prothrombin Time 9.6 sec (10.0-12.5)
[2023-12-07 19:35] VITALS: BP 174/97
--- NOTE | 2023-12-07 19:39 | XR ---
EXAMINATION TYPE: XR chest 2V DATE OF EXAM: 12/07/2023 7:20 PM CLINICAL INDICATION:Female, 63 years old with history of difficulty breathing; [facility] COMPARISON: Chest radiograph 08/18/2021 TECHNIQUE: XR chest 2V Frontal and lateral views of the chest. FINDINGS: Lungs/Pleura: There is no evidence of pleural effusion, focal consolidation, or pneumothorax. Pulmonary vascularity: Unremarkable. Heart/mediastinum: Cardiomediastinal silhouette is unremarkable. Musculoskeletal: No acute osseous pathology. IMPRESSION: No acute cardiopulmonary disease/process.
[2023-12-07] MEDS: MAGNESIUM SULFATE-D5W PMX 1 GM in DEXTROSE/WATER 1 100ML.BAG IVPB ONE (20:01)
[2023-12-07 21:03] VITALS: PULSE 85; RESP 19
== END 2023-12-07 21:03 | disposition home or self-care (01) ==
LOC: EC 16:49
DX: J45.901 Unspecified asthma with (acute) exacerbation (principal); R00.0 Tachycardia, unspecified; Z87.891 Personal history of nicotine dependence
CPT/HCPCS: 36415; 94640 ×2; 93005; 83880; 80053; 83605; 83735; 84484; 85025; 85610; 85730; 87040; 87636; 71046; 99285; 96365; 96375; J3475; J2919

== ENCOUNTER 2023-12-27 14:01 | Emergency (ER) | payer BC ==
[2023-12-27] MEDS ORDERED: FAMOTIDINE 20 MG/2 ML VIAL ONE (14:29)
[2023-12-27] MEDS ORDERED: methylPREDNISolone SOD SUCCI 125 MG/2 ML VIAL ONE (14:29)
[2023-12-27] MEDS ORDERED: diphenhydrAMINE 50 MG/ML 1 ML VIAL ONE (14:29)
--- NOTE | 2024-01-27 14:06 | CT ---
[id number] YUMIKO OVALLE : 1960 SWELLING OF THE NECK x 1 DAY, DIFFICULTY BREATHING [id number]/100ML DLP:833.7 EXAM: CT neck with IV contrast. CT thorax with IV contrast. DATE: 12/27/2023 18:45 INDICATION: Patient age:Female; 71 years old; Reason for study: (LILA) Difficulty in Breathing; COMPARISON: No prior studies available for comparison. TECHNIQUE: CT neck with Axial sections with coronal and sagittal reformats were obtained. Contrast utilized: 100 cc Isovue [address] images were obtained through the pulmonary vasculature after administration of 100 cc of Iso rosalind-300. Multiplanar reformatted images were then made One or more CT dose reduction strategies were utilized during this examination. Total DLP administere d was 833 mGycm . FINDINGS: Brain: Visualized portions are grossly unremarkable. Orbits: Unremarkable Sinuses: Grossly unremarkable. Spaces of the neck: Clear and symmetric. Musculoskeletal: Degenerative disc disease changes of the visualized spine are present. Lymph nodes: Multiple nonenlarged lymph nodes are seen along both anterior chains of the neck. Vascular structures: Minimal atherosclerotic calcifications of the internal carotid arteries. The med ial course of the internal carotid arteries posterior to the pharynx. Thoracic Inlet/airway: Airway is patent. Soft tissues/Thyroid: Thyroid and remainder of the soft tissues are unremarkable. Other: none. Lungs/Pleura: Mild centrilobular emphysema changes are seen throughout the lungs. Medialized course o f the No evidence of focal consolidation, pleural effusion or pneumothorax. Airway: Patent and grossly unremarkable. Secretions are seen within the right bronchus intermedius ne ar its bifurcation. Heart: Within normal limits for size. Vasculature: No evidence of aortic aneurysm. Mediastinum: No gross evidence of adenopathy. Musculoskeletal: No acute osseous abnormalities Soft Tissues: No significant fat stranding, organizing fluid collection or mass identified. Lower neck: No significant findings. Upper Abdomen: No significant findings. IMPRESSION: No evidence for acute process involving the neck or thorax to explain patient's swelling. No organizi ng fluid collection or mass identified. The subcutaneous tissues are relatively unremarkable. No evidence for airspace consolidation or acute process. Mild emphysema. Secretions within the right bronchus intermedius.
== END 2023-12-27 19:45 | disposition home or self-care (01) ==
LOC: EC 14:01
DX: R22.1 Localized swelling, mass and lump, neck (principal)
CPT/HCPCS: 70491; 71260; 96374; 96375; 99284